=== PATIENT | female | born 1955 | race Caucasian/White ===

== ENCOUNTER 2019-04-02 07:30 | Inpatient (IN) | payer MEDICARE, MEDICAID ==
[~2019-04-02] VITALS: Ht 162.6 cm; Wt 84.8 kg
[2019-04-02] VITALS (10 sets, daily range): BP systolic 126–155; BP diastolic 64–73
[~2019-04-02 07:30] MED LIST: HYDR-3511 PO; MEMA10TA2 PO; MONT10TA24 PO; OMEP20TA2 PO; P20 PO; SIMV80TA70 PO; TOPI25TA48 PO; VALS80TA2 PO; [UNRECOGNIZED DRUG - OTHER] PO
[2019-04-02 08:40] LABS: BASOPHILS % 0.3 % (0.0-2.0); EOSINOPHILS % 0.9 % (0.0-5.0); HEMATOCRIT. 43.7 % (36.0-48.0); HEMOGLOBIN. 14.7 g/dL (12.0-16.0); LYMPHOCYTES % 38.8 % (20.0-50.0); MEAN CORPUSCULAR HEMOGLOBIN 30.6 pg (28.0-32.0); MEAN CORPUSCULAR VOLUME 90.9 fL (81.0-99.0); MEAN PLATELET VOLUME 10.3 fl (7.4-10.4); RED BLOOD CELL COUNT 4.81 mill/uL (4.2-5.4); RED CELL DISTRIBUTION WIDTH 13.6 % (11.6-14.6)
[2019-04-02 08:43] LABS: CHLORIDE 112 mEq/L (98-107)
[2019-04-02 08:44] LABS: INR 1.1; PROTHROMBIN TIME 11.4 sec (9.6-11.0)
[2019-04-02 09:11] LABS: PLATELET 4 x1000/uL (130-400); PLATELET ESTIMATE MARKEDLY DECREASED
[2019-04-02] MEDS ORDERED: ELTR25TA MT (11:48)
[2019-04-02] MEDS ORDERED: LOSA50TA20 MT (11:48)
[2019-04-02] MEDS ORDERED: UMEC62.5 INH (11:48)
[2019-04-02] MEDS ORDERED: BUDE6.9H INH (11:48)
[2019-04-02] MEDS ORDERED: LORA10TA7 MT (11:48)
[2019-04-02] MEDS ORDERED: ACETAMINOPHEN 650MG SUPP PR PRN (12:00)
[2019-04-02] MEDS ORDERED: DIPHENHYDRAMINE 50MG/ML VIAL IV PRN (12:00)
[2019-04-02] MEDS ORDERED: IPRATROPIUM/ALBUTEROL 0.5-3(2.5)MG/3ML NEB INH PRN (12:00)
[2019-04-02] MEDS ORDERED: DOCUSATE SODIUM 100MG CAPSULE PO PRN (12:00)
[2019-04-02] MEDS ORDERED: ONDANSETRON HCL 4MG/2ML INJ IV PRN (12:00)
[2019-04-02] MEDS ORDERED: LORAZEPAM 0.5MG TABLET PO PRN (12:00)
[2019-04-02] MEDS ORDERED: GUAIFENESIN 200MG/10ML SUGAR FREE UDC PO PRN (12:00)
[2019-04-02] MEDS ORDERED: NA PHOS,M-B/NA PHOS,DI-BA ENEMA 118ML PR PRN (12:00)
[2019-04-02] MEDS ORDERED: DEXAMETHASONE 4MG/ML 1ML VIAL IV SCH (12:00)
[2019-04-02] MEDS ORDERED: MAGNESIUM/ALUMINUM HYDROXIDE/SIMETHICONE 30ML UDC PO PRN (12:00)
[2019-04-02] MEDS ORDERED: HYDROCODONE/ACETAMINOPHEN 5/325MG TABLET PO PRN (12:00)
[2019-04-02] MEDS ORDERED: MEMANTINE HCL 10MG TABLET PO SCH (12:00)
[2019-04-02] MEDS ORDERED: CLONIDINE 0.1MG TABLET PO PRN (12:00)
[2019-04-02] MEDS ORDERED: ACETAMINOPHEN 325MG TABLET PO PRN (12:00)
[2019-04-02] MEDS ORDERED: LEVETIRACETAM 500 MG in SODIUM CHLORIDE 0.9% 100 ML IV SCH (13:00)
[2019-04-02] MEDS ORDERED: LEVOFLOXACIN 500MG PREMIX 100 ML IV SCH (13:30)
[2019-04-02] MEDS ORDERED: DEXTROSE 50% WATER 50ML SYRINGE IV PRN (13:45)
[2019-04-02] MEDS: IPRATROPIUM/ALBUTEROL 0.5-3(2.5)MG/3ML NEB HHN SCH ×2 (16:28→20:50)
[2019-04-02] MEDS: LOSARTAN POTASSIUM 50 MG TABLET PO SCH (16:42)
[2019-04-02] MEDS: INSULIN LISPRO 100 UNITS/ML SUBCUT SCH ×2 (17:15→21:00)
[2019-04-02] MEDS: BLOOD SUGAR DIAGNOSTIC STRIP TEST SCH ×2 (17:21→20:26)
[2019-04-02] MEDS: SODIUM CHLORIDE 0.45% 1,000 ML IV SCH (18:04)
[2019-04-02] MEDS: CEFTRIAXONE 1 G PREMIX 50 ML IV SCH (18:40)
[2019-04-02] MEDS: MONTELUKAST SODIUM 10MG TABLET PO SCH (18:47)
[2019-04-02 20:20] LABS: CLARITY URINE CLEAR (CLEAR); COLOR URINE YELLOW (YELLOW); KETONES URINE NEGATIVE (NEGATIVE); LEUKOCYTE ESTERASE URINE NEGATIVE (NEGATIVE); NITRITE URINE NEGATIVE (NEGATIVE); OCCULT BLOOD URINE 3+ (NEGATIVE); PH URINE 7.5 (4.5-8.0); PROTEIN URINE 1+ (NEGATIVE); SPECIFIC GRAVITY URINE 1.017 (1.005-1.030)
[2019-04-02] MEDS: DEXAMETHASONE 4MG/ML 1ML VIAL IV SCH (20:26)
[2019-04-02] MEDS: TOPIRAMATE 25MG TABLET PO SCH (20:26)
[2019-04-02] MEDS: MEMANTINE HCL 10MG TABLET PO SCH (20:26)
[2019-04-02 20:30] LABS: HEMATOCRIT 40.2 % (36.0-48.0); HEMOGLOBIN 13.8 g/dL (12.0-16.0)
[2019-04-02 20:31] LABS: PROTHROMBIN TIME 10.7 sec (9.6-11.0)
[2019-04-02 20:37] LABS: *AMPHETAMINES SCREEN URINE NEGATIVE (NEGATIVE); *BARBITURATES SCREEN URINE NEGATIVE (NEGATIVE); *BENZODIAZEPINES SCREEN URINE NEGATIVE (NEGATIVE); *COCAINE SCREEN URINE NEGATIVE (NEGATIVE)
[2019-04-02 20:38] LABS: CANNABINOID URINE SCREEN NEGATIVE (NEGATIVE); METHADONE URINE SCREEN NEGATIVE (NEGATIVE); OPIATES URINE SCREEN NEGATIVE (NEGATIVE); PHENCYCLIDINE URINE SCREEN NEGATIVE (NEGATIVE)
[2019-04-02 20:45] LABS: CREATINE KINASE MB FRACTION 1.7 ng/mL (0.5-3.6)
[2019-04-02] MEDS: BUDESONIDE 0.5MG/2ML NEB HHN SCH (20:51)
[2019-04-02] MEDS ORDERED: ATORVASTATIN CALCIUM 40MG TABLET PO SCH (21:00)
[2019-04-02] MEDS: LEVETIRACETAM 500MG TABLET PO SCH ×2 (21:00→21:37)
[2019-04-02 23:34] LABS: CREATINE KINASE MB FRACTION 1.7 ng/mL (0.5-3.6)
[2019-04-03] VITALS (7 sets, daily range): BP systolic 107–139; BP diastolic 56–85
[2019-04-03] MEDS: IPRATROPIUM/ALBUTEROL 0.5-3(2.5)MG/3ML NEB HHN SCH ×2 (01:07→11:57)
[2019-04-03] MEDS: DEXAMETHASONE 4MG/ML 1ML VIAL IV SCH ×2 (03:57→12:29)
[2019-04-03 06:43] LABS: BASOPHILS % 0.1 % (0.0-2.0); HEMOGLOBIN. 14.2 g/dL (12.0-16.0); LYMPHOCYTES % 27.6 % (20.0-50.0); MEAN CORPUSCULAR HEMOGLOBIN 30.7 pg (28.0-32.0); MEAN CORPUSCULAR VOLUME 90.9 fL (81.0-99.0); MEAN PLATELET VOLUME 10.6 fl (7.4-10.4); NEUTROPHILS % 68.3 % (40.0-76.0); RED BLOOD CELL COUNT 4.62 mill/uL (4.2-5.4); RED CELL DISTRIBUTION WIDTH 13.4 % (11.6-14.6)
[2019-04-03] MEDS ORDERED: OMEPRAZOLE 20MG CAPSULE EXTENDED RELEASE PO SCH (06:45)
[2019-04-03 06:51] LABS: PLATELET 28 x1000/uL (130-400)
[2019-04-03] MEDS: BLOOD SUGAR DIAGNOSTIC STRIP TEST SCH ×3 (07:13→17:05)
[2019-04-03] MEDS: INSULIN LISPRO 100 UNITS/ML SUBCUT SCH ×3 (07:13→17:45)
[2019-04-03 07:18] LABS: CHLORIDE 113 mEq/L (98-107)
[2019-04-03 07:27] LABS: HDL CHOLESTEROL 47 mg/dL (40-59)
[2019-04-03 07:30] LABS: LDL CHOLESTEROL 48 mg/dL (5-100); T4 FREE 0.93 ng/dL (0.76-1.46)
[2019-04-03] MEDS ORDERED: MEDICATION NOT ON FORMULARY EA (Valsartan (Diovan) 160 MG) PO SCH (09:00)
[2019-04-03] MEDS ORDERED: LORATADINE 10MG TABLET PO SCH (09:00)
[2019-04-03] MEDS ORDERED: SIMVASTATIN 80 MG PO SCH (09:00)
[2019-04-03] MEDS: LEVETIRACETAM 500MG TABLET PO SCH (09:09)
[2019-04-03] MEDS: MEMANTINE HCL 10MG TABLET PO SCH (09:09)
[2019-04-03] MEDS: LOSARTAN POTASSIUM 50 MG TABLET PO SCH (09:09)
[2019-04-03] MEDS: TOPIRAMATE 25MG TABLET PO SCH (09:09)
[2019-04-03] MEDS: SODIUM CHLORIDE 0.45% 1,000 ML IV SCH (09:10)
[2019-04-03] MEDS: BUDESONIDE 0.5MG/2ML NEB HHN SCH (11:58)
[2019-04-03] MEDS ORDERED: PROMACTA 25 MG PO SCH (12:45)
[2019-04-03] MEDS: CEFTRIAXONE 1 G PREMIX 50 ML IV SCH (15:54)
[2019-04-03] MEDS: MONTELUKAST SODIUM 10MG TABLET PO SCH (17:45)
== END 2019-04-03 20:09 | disposition home or self-care (01) | DRG 813 ==
LOC: ER 07:30 → EDBEDREQ 08:21 → 5WST 10:19 → EDBEDREQ 10:22 → ENRESERV 10:29
PROVIDERS: ADMIT Internal Medicine; ATTEND Internal Medicine
PROC: 30233R1 Transfusion of Nonautologous Platelets into Peripheral Vein, Percutaneous Approach (ICD-10-PCS; principal; 2019-04-02)
DX: D69.3 Immune thrombocytopenic purpura (principal); J45.901 Unspecified asthma with (acute) exacerbation; N39.0 Urinary tract infection, site not specified; D69.59 Other secondary thrombocytopenia; E78.5 Hyperlipidemia, unspecified; E86.0 Dehydration; F03.90 Unspecified dementia, unspecified severity, without behavioral disturbance, psychotic disturbance, mood disturbance, and anxiety; G40.909 Epilepsy, unspecified, not intractable, without status epilepticus; H54.7 Unspecified visual loss; H91.90 Unspecified hearing loss, unspecified ear; I10 Essential (primary) hypertension; Z90.710 Acquired absence of both cervix and uterus; Z90.81 Acquired absence of spleen; Z88.8 Allergy status to other drugs, medicaments and biological substances; Z79.899 Other long term (current) drug therapy; R73.9 Hyperglycemia, unspecified
CPT/HCPCS: 36415; 71045; 80061; 80305; 82550; 82553; 82962; 83036; 84439; 84443; 85014; 85018; 85049; 85384; 86850; 86900; 93306; 93970; 97162; 99291; J0696; J1100; J1815; J1953; J7040; J7050; J7620; J7626; P9034; A4315

== ENCOUNTER 2019-05-20 15:34 | Inpatient (IN) | payer MEDICARE, MEDICAID ==
[~2019-05-20] VITALS: Ht 152.4 cm; Wt 90.7 kg
[~2019-05-20 15:34] MED LIST changes: +BUDE6.9H INH; +ELTR25TA PO; -HYDR-3511 PO; +HYDR-3512 PO; +LORA10TA7 PO; +LOSA50TA41 PO; -P20 PO; -SIMV80TA70 PO; +SIMV80TA90 PO; +UMEC62.5 INH
[2019-05-20 18:18] LABS: BASOPHILS % 0.5 % (0.0-2.0); EOSINOPHILS % 1.3 % (0.0-5.0); HEMATOCRIT. 44.2 % (36.0-48.0); HEMOGLOBIN. 15.2 g/dL (12.0-16.0); MEAN CORPUSCULAR HEMOGLOBIN 31.4 pg (28.0-32.0); MEAN CORPUSCULAR VOLUME 91.5 fL (81.0-99.0); MEAN PLATELET VOLUME 10.7 fl (7.4-10.4); MONOCYTES % 10.6 % (2.0-8.0); NEUTROPHILS % 41.6 % (40.0-76.0); RED BLOOD CELL COUNT 4.82 mill/uL (4.2-5.4); RED CELL DISTRIBUTION WIDTH 13.2 % (11.6-14.6)
[2019-05-20 18:24] LABS: CHLORIDE 110 mEq/L (98-107); PROTHROMBIN TIME 9.9 sec (9.6-11.0)
[2019-05-20 18:25] LABS: PLATELET 10 x1000/uL (130-400)
[2019-05-20] MEDS ORDERED: CLONIDINE 0.1MG TABLET PO PRN (21:45)
[2019-05-20] MEDS ORDERED: IPRATROPIUM/ALBUTEROL 0.5-3(2.5)MG/3ML NEB HHN PRN (21:45)
[2019-05-20] MEDS: TOPIRAMATE 25MG TABLET PO SCH (22:00)
[2019-05-20] MEDS: ATORVASTATIN CALCIUM 40MG TABLET PO SCH (22:00)
[2019-05-20 22:01] VITALS: BP 139/64
[2019-05-20 22:30] VITALS: BP 139/64
[2019-05-20] MEDS: METHYLPREDNISOLONE SOD SUCC 40 MG/ML VIAL IV SCH (23:00)
[2019-05-20 23:43] VITALS: BP 121/64
[2019-05-20 23:58] VITALS: BP 132/56
[2019-05-21] VITALS (7 sets, daily range): BP systolic 121–146; BP diastolic 64–75
[2019-05-21] MEDS: METHYLPREDNISOLONE SOD SUCC 40 MG/ML VIAL IV SCH ×2 (05:50→17:56)
[2019-05-21] MEDS ORDERED: MEMANTINE HCL 10MG TABLET PO SCH (09:00)
[2019-05-21] MEDS: MEMANTINE HCL 10MG TABLET PO SCH ×2 (09:09→20:48)
[2019-05-21] MEDS: TOPIRAMATE 25MG TABLET PO SCH ×2 (09:10→18:20)
[2019-05-21] MEDS: LORATADINE 10MG TABLET PO SCH (09:10)
[2019-05-21] MEDS: LOSARTAN POTASSIUM 50 MG TABLET PO SCH (09:10)
[2019-05-21] MEDS: LEVETIRACETAM 500MG TABLET PO SCH ×2 (09:10→20:47)
[2019-05-21] MEDS: PANTOPRAZOLE 40MG DR TABLET PO SCH (09:11)
[2019-05-21] MEDS ORDERED: [UNRECOGNIZED DRUG - REMARK] PO SCH (11:00)
[2019-05-21 16:22] LABS: HEMATOCRIT 43.9 % (36.0-48.0); MEAN CORPUSCULAR HEMOGLOBIN 31.3 pg (28.0-32.0); MEAN CORPUSCULAR VOLUME 91.9 fL (81.0-99.0); RED BLOOD CELL COUNT 4.78 mill/uL (4.2-5.4); RED CELL DISTRIBUTION WIDTH 13.5 % (11.6-14.6)
[2019-05-21 16:29] LABS: CHLORIDE 110 mEq/L (98-107)
[2019-05-21 16:33] LABS: PLATELET 36 x1000/uL (130-400)
[2019-05-21] MEDS: MONTELUKAST SODIUM 10MG TABLET PO SCH (18:20)
[2019-05-21] MEDS ORDERED: PROMACTA 25 MG PO SCH (20:00)
[2019-05-21] MEDS: ATORVASTATIN CALCIUM 40MG TABLET PO SCH (20:47)
[2019-05-22] VITALS: BP 110/48
[2019-05-22 00:08] LABS: CLARITY URINE CLOUDY (CLEAR); COLOR URINE YELLOW (YELLOW); KETONES URINE NEGATIVE (NEGATIVE); LEUKOCYTE ESTERASE URINE NEGATIVE (NEGATIVE); NITRITE URINE NEGATIVE (NEGATIVE); OCCULT BLOOD URINE 3+ (NEGATIVE); PH URINE 6.5 (4.5-8.0); PROTEIN URINE NEGATIVE (NEGATIVE); UROBILINOGEN URINE 0.2 E.U./dL (0.2-1.0)
[2019-05-22 04:00] VITALS: BP 132/75
[2019-05-22] MEDS: METHYLPREDNISOLONE SOD SUCC 40 MG/ML VIAL IV SCH ×2 (05:21→17:01)
[2019-05-22 07:18] LABS: HEMATOCRIT 43.2 % (36.0-48.0); HEMOGLOBIN 14.5 g/dL (12.0-16.0); MEAN CORPUSCULAR HEMOGLOBIN 31.3 pg (28.0-32.0); MEAN CORPUSCULAR VOLUME 92.9 fL (81.0-99.0); RED BLOOD CELL COUNT 4.65 mill/uL (4.2-5.4); RED CELL DISTRIBUTION WIDTH 13.6 % (11.6-14.6)
[2019-05-22 07:35] LABS: PLATELET 40 x1000/uL (130-400)
[2019-05-22] MEDS: PANTOPRAZOLE 40MG DR TABLET PO SCH (07:40)
[2019-05-22 07:47] LABS: CHLORIDE 112 mEq/L (98-107)
[2019-05-22] MEDS: LEVETIRACETAM 500MG TABLET PO SCH ×2 (08:51→21:44)
[2019-05-22] MEDS: MEMANTINE HCL 10MG TABLET PO SCH ×2 (08:51→21:44)
[2019-05-22] MEDS: LORATADINE 10MG TABLET PO SCH (08:51)
[2019-05-22] MEDS: LOSARTAN POTASSIUM 50 MG TABLET PO SCH (08:51)
[2019-05-22] MEDS: TOPIRAMATE 25MG TABLET PO SCH ×2 (08:51→17:01)
[2019-05-22 08:53] VITALS: BP 139/67
[2019-05-22] MEDS ORDERED: SUCCINYLCHOLINE CHLORIDE 200MG/10ML IV ONE (09:24)
[2019-05-22] MEDS ORDERED: MIDAZOLAM HCL 5 MG/5 ML VIAL ONE (09:24)
[2019-05-22] MEDS ORDERED: PROPOFOL 200MG/20ML VIAL IV ONE (09:24)
[2019-05-22] MEDS ORDERED: LIDOCAINE HCL 1% 20ML VIAL (Pyxis) INJ ONE ×2 (09:24→09:31)
[2019-05-22] MEDS ORDERED: FLUMAZENIL 0.1 MG/ML 5ML VIAL IV ONE (09:40)
[2019-05-22] MEDS ORDERED: SODIUM CHLORIDE 0.9% 1,000 ML IV ONE (09:47)
[2019-05-22] MEDS ORDERED: HYDROMORPHONE HCL/PF 2MG/ML CPJ IV PRN (10:00)
[2019-05-22] MEDS ORDERED: ONDANSETRON HCL 4MG/2ML INJ IV PRN (10:00)
[2019-05-22 13:03] VITALS: BP 160/85
[2019-05-22 15:32] VITALS: BP 154/71
[2019-05-22] MEDS: LEVOFLOXACIN 500MG PREMIX 100 ML IV SCH (17:00)
[2019-05-22] MEDS: MONTELUKAST SODIUM 10MG TABLET PO SCH (17:01)
[2019-05-22 20:00] VITALS: BP 129/72
[2019-05-22] MEDS: ATORVASTATIN CALCIUM 40MG TABLET PO SCH (21:44)
[2019-05-22] MEDS ORDERED: PROMACTA 25 MG PO SCH (22:00)
[2019-05-23] VITALS: BP 134/72
[2019-05-23 04:00] VITALS: BP 122/73
[2019-05-23] MEDS: PANTOPRAZOLE 40MG DR TABLET PO SCH (05:36)
[2019-05-23] MEDS: METHYLPREDNISOLONE SOD SUCC 40 MG/ML VIAL IV SCH (05:36)
[2019-05-23 06:43] LABS: HEMATOCRIT 41.3 % (36.0-48.0); HEMOGLOBIN 14.1 g/dL (12.0-16.0); MEAN CORPUSCULAR HEMOGLOBIN 31.4 pg (28.0-32.0); MEAN CORPUSCULAR VOLUME 91.9 fL (81.0-99.0); PLATELET 64 x1000/uL (130-400); RED BLOOD CELL COUNT 4.49 mill/uL (4.2-5.4); RED CELL DISTRIBUTION WIDTH 13.6 % (11.6-14.6)
[2019-05-23 06:50] LABS: CHLORIDE 111 mEq/L (98-107)
[2019-05-23 08:00] VITALS: BP 124/75
[2019-05-23] MEDS: LORATADINE 10MG TABLET PO SCH (09:14)
[2019-05-23] MEDS: MEMANTINE HCL 10MG TABLET PO SCH (09:14)
[2019-05-23] MEDS: LEVETIRACETAM 500MG TABLET PO SCH (09:14)
[2019-05-23] MEDS: LOSARTAN POTASSIUM 50 MG TABLET PO SCH (09:15)
[2019-05-23] MEDS: TOPIRAMATE 25MG TABLET PO SCH (09:15)
[2019-05-23] MEDS: LEVOFLOXACIN 500MG PREMIX 100 ML IV SCH (10:30)
[2019-05-23 12:00] VITALS: BP 125/68
[2019-05-23 12:46] VITALS: BP 125/68
== END 2019-05-23 14:15 | disposition home or self-care (01) | DRG 813 ==
LOC: ER 15:34 → 7WST 18:06 → ENRESERV 20:04
PROVIDERS: ADMIT Internal Medicine; ATTEND Internal Medicine
PROC: 30233R1 Transfusion of Nonautologous Platelets into Peripheral Vein, Percutaneous Approach (ICD-10-PCS; principal; 2019-05-20)
PROC: 5A09457 Assistance with Respiratory Ventilation, 24-96 Consecutive Hours, Continuous Positive Airway Pressure (ICD-10-PCS; 2019-05-20)
PROC: 07DQ3ZZ Extraction of Sternum Bone Marrow, Percutaneous Approach (ICD-10-PCS; 2019-05-22)
DX: D69.3 Immune thrombocytopenic purpura (principal); I50.33 Acute on chronic diastolic (congestive) heart failure; J45.901 Unspecified asthma with (acute) exacerbation; N39.0 Urinary tract infection, site not specified; D68.62 Lupus anticoagulant syndrome; I11.0 Hypertensive heart disease with heart failure; E11.65 Type 2 diabetes mellitus with hyperglycemia; E86.0 Dehydration; F03.90 Unspecified dementia, unspecified severity, without behavioral disturbance, psychotic disturbance, mood disturbance, and anxiety; G40.909 Epilepsy, unspecified, not intractable, without status epilepticus; E78.5 Hyperlipidemia, unspecified; Z90.710 Acquired absence of both cervix and uterus; Z79.899 Other long term (current) drug therapy; Z88.8 Allergy status to other drugs, medicaments and biological substances; Z90.81 Acquired absence of spleen; Z86.2 Personal history of diseases of the blood and blood-forming organs and certain disorders involving the immune mechanism
CPT/HCPCS: 36415; 38220; 71045; 80048; 82542; 84484; 85027; 85060; 85097; 86850; 86900; 88313; 92950; 93005; 93970; 94660; 96374; 96375; 99285; J0330; J1956; J2250; J2704; J2920; J3490; J7050; P9034

== ENCOUNTER 2019-06-13 17:21 | Inpatient (IN) | payer MEDICARE, MEDICAID ==
[~2019-06-13] VITALS: Ht 152.4 cm; Wt 86.2 kg
[2019-06-13 18:53] LABS: BASOPHILS % 0.5 % (0.0-2.0); EOSINOPHILS % 3.1 % (0.0-5.0); HEMATOCRIT. 40.9 % (36.0-48.0); HEMOGLOBIN. 14.1 g/dL (12.0-16.0); LYMPHOCYTES % 46.7 % (20.0-50.0); MEAN CORPUSCULAR HEMOGLOBIN 31.6 pg (28.0-32.0); MEAN CORPUSCULAR VOLUME 91.9 fL (81.0-99.0); MEAN PLATELET VOLUME 10.2 fl (7.4-10.4); MONOCYTES % 9.8 % (2.0-8.0); NEUTROPHILS % 39.9 % (40.0-76.0); RED BLOOD CELL COUNT 4.46 mill/uL (4.2-5.4); RED CELL DISTRIBUTION WIDTH 13.6 % (11.6-14.6)
[2019-06-13 19:02] LABS: CHLORIDE 110 mEq/L (98-107)
[2019-06-13] MEDS ORDERED: METHYLPREDNISOLONE SOD SUCC 125 MG/2 ML VIAL IV ONE (20:15)
[2019-06-14] VITALS (9 sets, daily range): BP systolic 115–148; BP diastolic 57–78
[2019-06-14] MEDS ORDERED: HYDROCODONE/ACETAMINOPHEN 5/325MG TABLET PO PRN (05:30)
[2019-06-14] MEDS ORDERED: BUDESONIDE 0.5MG/2ML NEB HHN SCH (06:00)
[2019-06-14] MEDS ORDERED: VALSARTAN 160 MG PO SCH (09:00)
[2019-06-14] MEDS ORDERED: TOPIRAMATE 25MG TABLET PO SCH (09:00)
[2019-06-14] MEDS ORDERED: LEVETIRACETAM 500MG/5ML CUP PO SCH (09:00)
[2019-06-14] MEDS ORDERED: LORATADINE 10MG TABLET PO SCH (09:00)
[2019-06-14] MEDS ORDERED: MEMANTINE HCL 10MG TABLET PO SCH (09:00)
[2019-06-14] MEDS ORDERED: LOSARTAN POTASSIUM 50 MG TABLET PO SCH (09:00)
[2019-06-14] MEDS ORDERED: ELTR25TA MT (13:29)
[2019-06-14] MEDS ORDERED: PROMACTA 25 MG XX SCH (13:30)
[2019-06-14] MEDS ORDERED: METHYLPREDNISOLONE SOD SUCC 40 MG/ML VIAL IV SCH (15:00)
[2019-06-14 15:31] LABS: BASOPHILS % 0.1 % (0.0-2.0); HEMATOCRIT. 39.9 % (36.0-48.0); HEMOGLOBIN. 13.5 g/dL (12.0-16.0); LYMPHOCYTES % 24.9 % (20.0-50.0); MEAN CORPUSCULAR HEMOGLOBIN 31.1 pg (28.0-32.0); MEAN PLATELET VOLUME 7.5 fl (7.4-10.4); MONOCYTES % 7.6 % (2.0-8.0); NEUTROPHILS % 67.4 % (40.0-76.0); PLATELET 63 x1000/uL (130-400); RED BLOOD CELL COUNT 4.33 mill/uL (4.2-5.4); RED CELL DISTRIBUTION WIDTH 13.4 % (11.6-14.6)
[2019-06-14 15:39] LABS: CHLORIDE 111 mEq/L (98-107)
[2019-06-14] MEDS ORDERED: MONTELUKAST SODIUM 10MG TABLET PO SCH (17:00)
[2019-06-14] MEDS ORDERED: ATORVASTATIN CALCIUM 40MG TABLET PO SCH (21:00)
[2019-06-17 09:19] LABS: PLATELET 7 x1000/uL (130-400)
== END 2019-06-14 19:06 | disposition home or self-care (01) | DRG 813 ==
LOC: ER 17:21 → 8WST 20:10 → ENRESERV 21:54
PROVIDERS: ADMIT Internal Medicine; ATTEND Internal Medicine
PROC: 30233R1 Transfusion of Nonautologous Platelets into Peripheral Vein, Percutaneous Approach (ICD-10-PCS; principal; 2019-06-14)
DX: D69.3 Immune thrombocytopenic purpura (principal); E44.1 Mild protein-calorie malnutrition; I50.32 Chronic diastolic (congestive) heart failure; E66.9 Obesity, unspecified; E78.5 Hyperlipidemia, unspecified; E87.8 Other disorders of electrolyte and fluid balance, not elsewhere classified; F03.90 Unspecified dementia, unspecified severity, without behavioral disturbance, psychotic disturbance, mood disturbance, and anxiety; G40.909 Epilepsy, unspecified, not intractable, without status epilepticus; H54.7 Unspecified visual loss; I11.0 Hypertensive heart disease with heart failure; Z90.710 Acquired absence of both cervix and uterus; Z90.81 Acquired absence of spleen; Z88.8 Allergy status to other drugs, medicaments and biological substances; Z79.899 Other long term (current) drug therapy; Z68.37 Body mass index [BMI] 37.0-37.9, adult
CPT/HCPCS: 36415; 71045; 80048; 83880; 84484; 85384; 86850; 86900; 93005; 96374; 99285; J2920; J2930; J7040; P9034

== ENCOUNTER 2019-08-19 12:25 | Emergency (ER) | payer MEDICARE, MEDICAID ==
[~2019-08-19] VITALS: Ht 167.6 cm; Wt 102.0 kg
[~2019-08-19 12:25] MED LIST changes: +ELTR25TA MT; +FOST100T PO
[2019-08-19 13:25] LABS: BASOPHILS % 0.5 % (0.0-2.0); EOSINOPHILS % 0.9 % (0.0-5.0); HEMATOCRIT. 43.9 % (36.0-48.0); HEMOGLOBIN. 14.8 g/dL (12.0-16.0); LYMPHOCYTES % 45.9 % (20.0-50.0); MEAN CORPUSCULAR HEMOGLOBIN 30.9 pg (28.0-32.0); MEAN CORPUSCULAR VOLUME 91.5 fL (81.0-99.0); MEAN PLATELET VOLUME 9.5 fl (7.4-10.4); MONOCYTES % 8.3 % (2.0-8.0); NEUTROPHILS % 44.4 % (40.0-76.0); RED CELL DISTRIBUTION WIDTH 14.5 % (11.6-14.6)
[2019-08-19 13:32] LABS: CHLORIDE 112 mEq/L (98-107); INR 0.9; PROTHROMBIN TIME 9.6 sec (9.6-11.0)
[2019-08-19 17:10] VITALS: BP 138/78
[2019-08-20 09:47] LABS: PLATELET 10 x1000/uL (130-400)
== END 2019-08-19 17:40 | disposition home or self-care (01) ==
LOC: SUPCPDRO 14:11 → ER 14:19
DX: D69.3 Immune thrombocytopenic purpura (principal); T14.8XXA Other injury of unspecified body region, initial encounter; D69.6 Thrombocytopenia, unspecified; G40.909 Epilepsy, unspecified, not intractable, without status epilepticus; I11.0 Hypertensive heart disease with heart failure; I50.33 Acute on chronic diastolic (congestive) heart failure; F03.90 Unspecified dementia, unspecified severity, without behavioral disturbance, psychotic disturbance, mood disturbance, and anxiety; J45.909 Unspecified asthma, uncomplicated; E78.5 Hyperlipidemia, unspecified; D64.9 Anemia, unspecified; K57.92 Diverticulitis of intestine, part unspecified, without perforation or abscess without bleeding; Z90.81 Acquired absence of spleen; Z90.710 Acquired absence of both cervix and uterus; Z79.899 Other long term (current) drug therapy; Z88.8 Allergy status to other drugs, medicaments and biological substances
CPT/HCPCS: 36415; 86850; 86900; 93005; 99284; P9034

== ENCOUNTER 2019-08-27 11:58 | Emergency (ER) | payer MEDICARE, MEDICAID ==
[~2019-08-27] VITALS: Ht 152.4 cm; Wt 95.0 kg
[2019-08-27] MEDS ORDERED: SODIUM CHLORIDE 0.9% 1,000 ML IV ONE (12:59)
[2019-08-27 14:16] LABS: BG BASE EXCESS -3.3 mmol/L (-2.0-2.0); BG CARBOXYHEMOGLOBIN 0.7 % (0.5-1.5); BG DEOXYHEMOGLOBIN 4.4 % (0.0-5.0); BG FRACTION INSPIRED OXYGEN 28; BG HCO3 ACT 22.3 mmol/L (22.0-26.0); BG METHEMOGLOBIN 0.3 % (0.0-1.5); BG OXYGEN SATURATION 95.6 % (92.0-98.5); BG OXYHEMOGLOBIN 94.6 % (94.0-97.0); BG PCO2 41.9 mmHg (35.0-45.0); BG PH 7.343 (7.350-7.450); BG PO2 83.6 mmHg (75.0-100.0); BG SAMPLE SITE LEFT BRACHIAL; BG TOTAL HEMOGLOBIN 14.2 g/dL (12.0-18.0); BG VENT MODE NASAL CANNULA
[2019-08-27 14:20] LABS: BASOPHILS % 0.2 % (0.0-2.0); CHLORIDE 113 mEq/L (98-107); EOSINOPHILS % 0.4 % (0.0-5.0); HEMATOCRIT. 42.6 % (36.0-48.0); HEMOGLOBIN. 14.5 g/dL (12.0-16.0); LYMPHOCYTES % 48.1 % (20.0-50.0); MEAN CORPUSCULAR HEMOGLOBIN 31.1 pg (28.0-32.0); MEAN CORPUSCULAR VOLUME 91.6 fL (81.0-99.0); MEAN PLATELET VOLUME 10.9 fl (7.4-10.4); MONOCYTES % 7.6 % (2.0-8.0); NEUTROPHILS % 43.7 % (40.0-76.0); RED BLOOD CELL COUNT 4.64 mill/uL (4.2-5.4); RED CELL DISTRIBUTION WIDTH 14.9 % (11.6-14.6)
[2019-08-27 14:25] LABS: ETHANOL BLOOD < 10 mg/dL
[2019-08-27 15:23] LABS: INR 0.9; PROTHROMBIN TIME 9.8 sec (9.6-11.0)
[2019-08-27] MEDS ORDERED: PREDNISONE 20MG TABLET PO ONE (16:00)
[2019-08-27 16:26] VITALS: BP 125/70
[2019-08-28 08:55] LABS: PLATELET 32 x1000/uL (130-400)
== END 2019-08-27 16:28 | disposition home or self-care (01) ==
LOC: ER 11:58 → CANBEDREQ 15:55 → ER 16:28
DX: D69.6 Thrombocytopenia, unspecified (principal); E88.09 Other disorders of plasma-protein metabolism, not elsewhere classified; G40.909 Epilepsy, unspecified, not intractable, without status epilepticus; F03.90 Unspecified dementia, unspecified severity, without behavioral disturbance, psychotic disturbance, mood disturbance, and anxiety; H91.90 Unspecified hearing loss, unspecified ear; Z90.710 Acquired absence of both cervix and uterus; Z90.81 Acquired absence of spleen; Z88.6 Allergy status to analgesic agent
CPT/HCPCS: 36415; 36600; 70450; 71045; 80053; 80320; 82140; 82375; 82805; 83605; 83880; 84443; 84484; 85025; 85610; 96360; 96361; 99284; J7030; J7512; G0480

== ENCOUNTER 2019-09-09 10:31 | Inpatient (IN) | payer MEDICARE, MEDICAID ==
[~2019-09-09] VITALS: Ht 152.4 cm; Wt 96.6 kg
[2019-09-09 12:12] LABS: BASOPHILS % 0.3 % (0.0-2.0); EOSINOPHILS % 0.5 % (0.0-5.0); HEMATOCRIT. 44.2 % (36.0-48.0); LYMPHOCYTES % 47.7 % (20.0-50.0); MEAN CORPUSCULAR HEMOGLOBIN 31.2 pg (28.0-32.0); MEAN CORPUSCULAR VOLUME 92.1 fL (81.0-99.0); MEAN PLATELET VOLUME 11.2 fl (7.4-10.4); MONOCYTES % 8.6 % (2.0-8.0); NEUTROPHILS % 42.9 % (40.0-76.0); RED CELL DISTRIBUTION WIDTH 15.7 % (11.6-14.6)
[2019-09-09 12:16] LABS: PLATELET 5 x1000/uL (130-400)
[2019-09-09 12:19] LABS: CHLORIDE 110 mEq/L (98-107)
[2019-09-09 12:21] LABS: INR 0.9; PROTHROMBIN TIME 9.8 sec (9.6-11.0)
[2019-09-09 12:33] LABS: PLATELET ESTIMATE MARKEDLY DECREASED
[2019-09-09 22:42] VITALS: BP 146/81
[2019-09-09] MEDS ORDERED: IPRATROPIUM/ALBUTEROL 0.5-3(2.5)MG/3ML NEB HHN PRN (23:15)
[2019-09-09] MEDS ORDERED: NON FORMULARY PATIENT HOME MED XX SCH ×2 (23:30)
[2019-09-10] VITALS: BP 148/80
[2019-09-10] MEDS: PREDNISONE 20MG TABLET PO SCH ×2 (00:08→08:30)
[2019-09-10] MEDS: IPRATROPIUM/ALBUTEROL 0.5-3(2.5)MG/3ML NEB HHN SCH ×3 (00:47→14:44)
[2019-09-10 04:00] VITALS: BP 143/78
[2019-09-10] MEDS ORDERED: OMEPRAZOLE 20MG CAPSULE EXTENDED RELEASE PO SCH (07:20)
[2019-09-10 08:00] VITALS: BP 173/92
[2019-09-10] MEDS ORDERED: LEVETIRACETAM 500MG TABLET PO SCH (09:00)
[2019-09-10] MEDS ORDERED: LORATADINE 10MG TABLET PO SCH (09:00)
[2019-09-10] MEDS ORDERED: MEMANTINE HCL 10MG TABLET PO SCH (09:00)
[2019-09-10] MEDS ORDERED: LOSARTAN POTASSIUM 50 MG TABLET PO SCH ×2 (09:00)
[2019-09-10 10:34] LABS: CHLORIDE 109 mEq/L (98-107)
[2019-09-10 10:38] LABS: BASOPHILS % 0.1 % (0.0-2.0); HEMATOCRIT. 44.5 % (36.0-48.0); HEMOGLOBIN. 14.9 g/dL (12.0-16.0); LYMPHOCYTES % 23.9 % (20.0-50.0); MEAN CORPUSCULAR HEMOGLOBIN 30.9 pg (28.0-32.0); MEAN CORPUSCULAR VOLUME 92.4 fL (81.0-99.0); MEAN PLATELET VOLUME 8.9 fl (7.4-10.4); MONOCYTES % 1.1 % (2.0-8.0); NEUTROPHILS % 74.9 % (40.0-76.0); RED BLOOD CELL COUNT 4.81 mill/uL (4.2-5.4); RED CELL DISTRIBUTION WIDTH 15.6 % (11.6-14.6)
[2019-09-10 10:44] LABS: PLATELET 36 x1000/uL (130-400)
[2019-09-10 12:00] VITALS: BP 145/78
[2019-09-10] MEDS ORDERED: MEMANTINE 28 MG PO SCH (12:00)
[2019-09-10 12:44] LABS: BASOPHILS % 0.1 % (0.0-2.0); HEMATOCRIT. 43.4 % (36.0-48.0); HEMOGLOBIN. 14.5 g/dL (12.0-16.0); LYMPHOCYTES % 21.7 % (20.0-50.0); MEAN CORPUSCULAR VOLUME 92.7 fL (81.0-99.0); MEAN PLATELET VOLUME 9.1 fl (7.4-10.4); MONOCYTES % 7.2 % (2.0-8.0); RED BLOOD CELL COUNT 4.68 mill/uL (4.2-5.4); RED CELL DISTRIBUTION WIDTH 15.9 % (11.6-14.6)
[2019-09-10 12:46] LABS: PLATELET 33 x1000/uL (130-400)
[2019-09-10] MEDS: TAVALISSE PO SCH ×2 (14:07→17:00)
[2019-09-10 16:00] VITALS: BP 158/81
[2019-09-10 16:41] VITALS: BP 158/81
[2019-09-10] MEDS ORDERED: MONTELUKAST SODIUM 10MG TABLET PO SCH (17:00)
[2019-09-10] MEDS ORDERED: ATORVASTATIN CALCIUM 40MG TABLET PO SCH (21:00)
== END 2019-09-10 17:05 | disposition home or self-care (01) | DRG 813 ==
LOC: ER 10:31 → 6EST 12:49 → ENRESERV 20:02
PROVIDERS: ADMIT Internal Medicine; ATTEND Internal Medicine
PROC: 30233R1 Transfusion of Nonautologous Platelets into Peripheral Vein, Percutaneous Approach (ICD-10-PCS; principal; 2019-09-09)
DX: D69.3 Immune thrombocytopenic purpura (principal); I50.33 Acute on chronic diastolic (congestive) heart failure; I11.0 Hypertensive heart disease with heart failure; E78.5 Hyperlipidemia, unspecified; F03.90 Unspecified dementia, unspecified severity, without behavioral disturbance, psychotic disturbance, mood disturbance, and anxiety; G40.909 Epilepsy, unspecified, not intractable, without status epilepticus; H54.7 Unspecified visual loss; J44.9 Chronic obstructive pulmonary disease, unspecified; Z79.51 Long term (current) use of inhaled steroids; Z79.899 Other long term (current) drug therapy; Z86.2 Personal history of diseases of the blood and blood-forming organs and certain disorders involving the immune mechanism; Z90.710 Acquired absence of both cervix and uterus; Z90.81 Acquired absence of spleen; Z88.8 Allergy status to other drugs, medicaments and biological substances
CPT/HCPCS: 36415; 80048; 86850; 86900; 94640; 99285; J7040; J7512; J7620; P9034

== ENCOUNTER 2019-10-03 13:40 | Inpatient (IN) | payer MEDICARE, MEDICAID ==
[~2019-10-03] VITALS: Ht 153.4 cm; Wt 99.4 kg
[2019-10-03 17:12] LABS: CHLORIDE 105 mEq/L (98-107)
[2019-10-03 17:25] LABS: HEMATOCRIT. 45.6 % (36.0-48.0); HEMOGLOBIN. 15.5 g/dL (12.0-16.0); LYMPHOCYTES % 18.2 % (20.0-50.0); MEAN CORPUSCULAR HEMOGLOBIN 31.9 pg (28.0-32.0); MEAN CORPUSCULAR VOLUME 94.2 fL (81.0-99.0); MONOCYTES % 4.6 % (2.0-8.0); NEUTROPHILS % 77.2 % (40.0-76.0); RED BLOOD CELL COUNT 4.84 mill/uL (4.2-5.4); RED CELL DISTRIBUTION WIDTH 16.9 % (11.6-14.6)
[2019-10-03 17:29] LABS: PLATELET 12 x1000/uL (130-400)
[2019-10-03 21:30] VITALS: BP 120/58
[2019-10-03] MEDS ORDERED: LOSARTAN POTASSIUM 100 MG TABLET PO NR (23:00)
[2019-10-04] VITALS: BP 143/79
[2019-10-04 04:00] VITALS: BP 127/73
[2019-10-04 07:18] LABS: EOSINOPHILS % 0.2 % (0.0-5.0); HEMATOCRIT. 45.3 % (36.0-48.0); HEMOGLOBIN. 15.4 g/dL (12.0-16.0); MEAN CORPUSCULAR HEMOGLOBIN 32.4 pg (28.0-32.0); MEAN CORPUSCULAR VOLUME 95.2 fL (81.0-99.0); MEAN PLATELET VOLUME 8.5 fl (7.4-10.4); MONOCYTES % 5.6 % (2.0-8.0); NEUTROPHILS % 54.2 % (40.0-76.0); RED BLOOD CELL COUNT 4.76 mill/uL (4.2-5.4); RED CELL DISTRIBUTION WIDTH 16.8 % (11.6-14.6)
[2019-10-04 08:00] VITALS: BP 139/73
[2019-10-04 08:04] LABS: PLATELET 31 x1000/uL (130-400)
[2019-10-04] MEDS ORDERED: LEVETIRACETAM 500MG/5ML CUP PO SCH (09:00)
[2019-10-04] MEDS ORDERED: LOSARTAN POTASSIUM 50 MG TABLET PO SCH (09:00)
[2019-10-04] MEDS ORDERED: LORATADINE 10MG TABLET PO SCH (09:00)
[2019-10-04] MEDS ORDERED: UMECLIDINIUM BROMIDE 1 INH BLST.W.DEV IH SCH (09:00)
[2019-10-04] MEDS ORDERED: MEMANTINE HCL 10MG TABLET PO SCH (09:00)
[2019-10-04] MEDS ORDERED: TOPIRAMATE 25MG TABLET PO SCH (09:00)
[2019-10-04 12:00] VITALS: BP 126/75
[2019-10-04] MEDS ORDERED: PREDNISONE 20MG TABLET PO NR (14:45)
[2019-10-04 16:00] VITALS: BP 99/59
[2019-10-04 17:01] VITALS: BP 99/59
[2019-10-04] MEDS ORDERED: MONTELUKAST SODIUM 10MG TABLET PO SCH (18:00)
== END 2019-10-04 17:38 | disposition home or self-care (01) | DRG 813 ==
LOC: ER 13:40 → 6EST 17:38 → ENRESERV 20:42
PROVIDERS: ADMIT Internal Medicine; ATTEND Internal Medicine
PROC: 30233R1 Transfusion of Nonautologous Platelets into Peripheral Vein, Percutaneous Approach (ICD-10-PCS; principal; 2019-10-03)
DX: D69.3 Immune thrombocytopenic purpura (principal); Z88.8 Allergy status to other drugs, medicaments and biological substances; F03.90 Unspecified dementia, unspecified severity, without behavioral disturbance, psychotic disturbance, mood disturbance, and anxiety; G40.909 Epilepsy, unspecified, not intractable, without status epilepticus; I10 Essential (primary) hypertension; J44.9 Chronic obstructive pulmonary disease, unspecified; Z90.710 Acquired absence of both cervix and uterus; Z90.81 Acquired absence of spleen
CPT/HCPCS: 36415; 86850; 86900; 99285; J7512; P9034

== ENCOUNTER 2019-11-30 08:32 | Inpatient (IN) | payer MEDICARE, MEDICAID ==
[~2019-11-30] VITALS: Ht 152.4 cm; Wt 94.8 kg
[~2019-11-30 08:32] MED LIST changes: +ATOR10TA MT; -ELTR25TA MT; -FOST100T PO; -LOSA50TA41 PO; +METO25TA6 MT; -MONT10TA24 PO; +MONT10TA26 PO; -SIMV80TA90 PO
[2019-11-30 12:32] LABS: BASOPHILS % 0.9 % (0.0-2.0); EOSINOPHILS % 2.6 % (0.0-5.0); HEMATOCRIT. 38.8 % (36.0-48.0); HEMOGLOBIN. 13.4 g/dL (12.0-16.0); LYMPHOCYTES % 37.5 % (20.0-50.0); MEAN CORPUSCULAR HEMOGLOBIN 33.3 pg (28.0-32.0); MEAN CORPUSCULAR VOLUME 96.6 fL (81.0-99.0); MONOCYTES % 8.5 % (2.0-8.0); NEUTROPHILS % 50.5 % (40.0-76.0); PLATELET 426 x1000/uL (130-400); RED BLOOD CELL COUNT 4.02 mill/uL (4.2-5.4); RED CELL DISTRIBUTION WIDTH 15.9 % (11.6-14.6)
[2019-11-30 12:40] LABS: INR 1.1; PROTHROMBIN TIME 10.8 sec (9.6-11.0)
[2019-11-30 12:42] LABS: CHLORIDE 103 mEq/L (98-107)
[2019-11-30 12:58] LABS: CLARITY URINE CLEAR (CLEAR); COLOR URINE YELLOW (YELLOW); KETONES URINE NEGATIVE (NEGATIVE); LEUKOCYTE ESTERASE URINE NEGATIVE (NEGATIVE); NITRITE URINE NEGATIVE (NEGATIVE); OCCULT BLOOD URINE NEGATIVE (NEGATIVE); PH URINE 5.5 (4.5-8.0); PROTEIN URINE TRACE (NEGATIVE)
[2019-11-30] MEDS ORDERED: ASPIRIN 81MG TABLET PO ONE (14:30)
[2019-11-30] MEDS ORDERED: FUROSEMIDE 40MG/4ML VIAL IV ONE (14:30)
[2019-11-30] MEDS ORDERED: DOCUSATE SODIUM 100MG CAPSULE PO PRN (14:45)
[2019-11-30] MEDS ORDERED: CLONIDINE 0.1MG TABLET PO PRN (14:45)
[2019-11-30] MEDS ORDERED: NA PHOS,M-B/NA PHOS,DI-BA ENEMA 118ML PR PRN (14:45)
[2019-11-30] MEDS ORDERED: GUAIFENESIN 200MG/10ML SUGAR FREE UDC PO PRN (14:45)
[2019-11-30] MEDS ORDERED: DIPHENHYDRAMINE 50MG/ML VIAL IV PRN (14:45)
[2019-11-30] MEDS ORDERED: LORAZEPAM 0.5MG TABLET PO PRN (14:45)
[2019-11-30] MEDS ORDERED: IPRATROPIUM/ALBUTEROL 0.5-3(2.5)MG/3ML NEB NEB PRN (14:45)
[2019-11-30] MEDS ORDERED: HYDROCODONE/ACETAMINOPHEN 5/325MG TABLET PO PRN (14:45)
[2019-11-30] MEDS ORDERED: ACETAMINOPHEN 650MG SUPP PR PRN (14:45)
[2019-11-30] MEDS ORDERED: ONDANSETRON HCL 4MG/2ML INJ IV PRN (14:45)
[2019-11-30] MEDS ORDERED: ACETAMINOPHEN 325MG TABLET PO PRN (14:45)
[2019-11-30] MEDS ORDERED: MAGNESIUM/ALUMINUM HYDROXIDE/SIMETHICONE 30ML UDC PO PRN (14:45)
[2019-11-30] MEDS ORDERED: ENOXAPARIN 100MG/ML SYR SUBCUT ONE (15:00)
[2019-11-30 15:43] LABS: BG BASE EXCESS 3.1 mmol/L (-2.0-2.0); BG CARBOXYHEMOGLOBIN 0.6 % (0.5-1.5); BG DEOXYHEMOGLOBIN 9.9 % (0.0-5.0); BG FRACTION INSPIRED OXYGEN 21; BG HCO3 ACT 27.8 mmol/L (22.0-26.0); BG METHEMOGLOBIN 0.3 % (0.0-1.5); BG OXYHEMOGLOBIN 89.2 % (94.0-97.0); BG PCO2 42.8 mmHg (35.0-45.0); BG PH 7.431 (7.350-7.450); BG PO2 56.1 mmHg (75.0-100.0); BG SAMPLE SITE RIGHT BRACHIAL; BG TOTAL HEMOGLOBIN 14.3 g/dL (12.0-18.0); BG VENT MODE ROOM AIR
[2019-11-30] MEDS ORDERED: IOHEXOL-350 100 ML BOTTLE ONE (17:51)
[2019-11-30] MEDS ORDERED: LEVETIRACETAM 500MG PREMIX 100 ML IV NR (19:26)
[2019-11-30] MEDS ORDERED: FAMOTIDINE 20MG/2ML VIAL IV NR (19:27)
[2019-11-30] MEDS ORDERED: CEFTRIAXONE 1 G PREMIX 50 ML IV NR (19:28)
[2019-11-30] MEDS ORDERED: APIXABAN 5 MG TABLET PO NR (19:29)
[2019-11-30] MEDS: IPRATROPIUM/ALBUTEROL 0.5-3(2.5)MG/3ML NEB NEB SCH ×2 (20:44→20:45)
[2019-11-30 23:49] LABS: CREATINE KINASE 31 IU/L (26-192)
[2019-11-30 23:50] LABS: CREATINE KINASE MB FRACTION < 1.0 ng/mL (0.5-3.6)
[2019-12-01 04:30] LABS: CHLORIDE 105 mEq/L (98-107)
[2019-12-01 04:42] LABS: LDL CHOLESTEROL 60 mg/dL (5-100)
[2019-12-01 04:43] LABS: CREATINE KINASE 27 IU/L (26-192); CREATINE KINASE MB FRACTION < 1.0 ng/mL (0.5-3.6); HDL CHOLESTEROL 32 mg/dL (40-59); T4 FREE 1.14 ng/dL (0.76-1.46)
[2019-12-01 04:47] LABS: BASOPHILS % 0.8 % (0.0-2.0); EOSINOPHILS % 5.3 % (0.0-5.0); HEMATOCRIT. 33.8 % (36.0-48.0); HEMOGLOBIN. 11.7 g/dL (12.0-16.0); LYMPHOCYTES % 37.6 % (20.0-50.0); MEAN CORPUSCULAR HEMOGLOBIN 33.1 pg (28.0-32.0); MEAN CORPUSCULAR VOLUME 95.9 fL (81.0-99.0); MEAN PLATELET VOLUME 8.1 fl (7.4-10.4); MONOCYTES % 10.8 % (2.0-8.0); NEUTROPHILS % 45.5 % (40.0-76.0); PLATELET 486 x1000/uL (130-400); RED BLOOD CELL COUNT 3.53 mill/uL (4.2-5.4); RED CELL DISTRIBUTION WIDTH 15.8 % (11.6-14.6)
[2019-12-01] MEDS ORDERED: LEVETIRACETAM 500 MG in SODIUM CHLORIDE 0.9% 100 ML IV SCH (09:00)
[2019-12-01] MEDS ORDERED: BUDESONIDE 0.5MG/2ML NEB HHN SCH (09:00)
[2019-12-01] MEDS ORDERED: LEVETIRACETAM 500MG PREMIX 100 ML IV SCH (09:00)
[2019-12-01] MEDS ORDERED: APIXABAN 5 MG TABLET PO SCH (09:00)
[2019-12-01] MEDS: DEXT 5%/0.45% NACL 1000ML 1,000 ML IV SCH (09:00)
[2019-12-01] MEDS: FAMOTIDINE 20MG/2ML VIAL IV SCH (09:02)
[2019-12-01] MEDS: APIXABAN 5 MG TABLET PO SCH ×2 (09:23→17:42)
[2019-12-01] MEDS ORDERED: IPRATROPIUM/ALBUTEROL 0.5-3(2.5)MG/3ML NEB NEB SCH (12:00)
[2019-12-01 16:10] VITALS: BP 142/76
[2019-12-01] MEDS: CEFTRIAXONE 1 G PREMIX 50 ML IV SCH (19:08)
[2019-12-01] MEDS ORDERED: LEVE500T98 PO (19:11)
[2019-12-01 20:00] VITALS: BP 115/53
[2019-12-01] MEDS ORDERED: INFLUENZA VIRUS VACCINE(AFLURIA) 0.5ML SYR IM ONE (23:45)
[2019-12-02] VITALS: BP 138/60
[2019-12-02] MEDS: LEVETIRACETAM 500MG PREMIX 100 ML IV SCH ×3 (01:50→20:15)
[2019-12-02 04:00] VITALS: BP 142/77
[2019-12-02 08:00] VITALS: BP 118/58
[2019-12-02] MEDS: FAMOTIDINE 20MG/2ML VIAL IV SCH (08:40)
[2019-12-02] MEDS: APIXABAN 5 MG TABLET PO SCH ×2 (08:40→18:49)
[2019-12-02] MEDS ORDERED: POTASSIUM CHLORIDE 20MEQ/PACKET PO NR (09:00)
[2019-12-02 10:50] LABS: BG BASE EXCESS -3.2 mmol/L (-2.0-2.0); BG CARBOXYHEMOGLOBIN 0.3 % (0.5-1.5); BG DEOXYHEMOGLOBIN 9.1 % (0.0-5.0); BG FRACTION INSPIRED OXYGEN 21; BG HCO3 ACT 21.2 mmol/L (22.0-26.0); BG METHEMOGLOBIN 0.2 % (0.0-1.5); BG OXYGEN SATURATION 90.9 % (92.0-98.5); BG OXYHEMOGLOBIN 90.4 % (94.0-97.0); BG PCO2 36.1 mmHg (35.0-45.0); BG PH 7.387 (7.350-7.450); BG PO2 60.9 mmHg (75.0-100.0); BG SAMPLE SITE RIGHT RADIAL; BG TOTAL HEMOGLOBIN 12.4 g/dL (12.0-18.0); BG VENT MODE ROOM AIR
[2019-12-02] MEDS: DEXT 5%/0.45% NACL 1000ML 1,000 ML IV SCH (10:51)
[2019-12-02 12:00] VITALS: BP 131/84
[2019-12-02 14:07] LABS: HEMATOCRIT 33.5 % (36.0-48.0); HEMOGLOBIN 11.9 g/dL (12.0-16.0); MEAN CORPUSCULAR HEMOGLOBIN 34.3 pg (28.0-32.0); MEAN CORPUSCULAR VOLUME 96.5 fL (81.0-99.0); PLATELET 581 x1000/uL (130-400); RED BLOOD CELL COUNT 3.47 mill/uL (4.2-5.4)
[2019-12-02 16:00] VITALS: BP 125/65
[2019-12-02] MEDS: CEFTRIAXONE 1 G PREMIX 50 ML IV SCH (19:26)
[2019-12-02 20:00] VITALS: BP 122/58
[2019-12-03] VITALS: BP 125/80
[2019-12-03 04:00] VITALS: BP 115/56
[2019-12-03 07:46] LABS: CHLORIDE 111 mEq/L (98-107)
[2019-12-03 08:00] VITALS: BP 107/67
[2019-12-03 08:37] LABS: HEMATOCRIT 33.4 % (36.0-48.0); HEMOGLOBIN 11.8 g/dL (12.0-16.0); MEAN CORPUSCULAR HEMOGLOBIN 36.3 pg (28.0-32.0); MEAN CORPUSCULAR VOLUME 102.7 fL (81.0-99.0); PLATELET 632 x1000/uL (130-400); RED BLOOD CELL COUNT 3.25 mill/uL (4.2-5.4); RED CELL DISTRIBUTION WIDTH 16.5 % (11.6-14.6)
[2019-12-03] MEDS: LEVETIRACETAM 500MG PREMIX 100 ML IV SCH (10:21)
[2019-12-03] MEDS: FAMOTIDINE 20MG/2ML VIAL IV SCH (10:21)
[2019-12-03] MEDS: APIXABAN 5 MG TABLET PO SCH (10:23)
[2019-12-03 12:00] VITALS: BP 119/71
[2019-12-03] MEDS ORDERED: APIX5TAB PO (15:29)
[2019-12-03 16:05] VITALS: BP 136/77
[2019-12-03 16:53] VITALS: BP 136/77
[2019-12-03] MEDS ORDERED: CEFTRIAXONE 1 G PREMIX 50 ML IV SCH (18:30)
[2019-12-07] MEDS ORDERED: APIXABAN 5 MG TABLET PO SCH (17:00)
[2019-12-25] MEDS ORDERED: APIX5TAB MT (17:07)
== END 2019-12-03 17:39 | disposition home or self-care (01) | DRG 299 ==
LOC: ER 09:16 → EDBEDREQ 14:24 → EDBEDREQSVC 14:24 → EDBEDREQTM 14:59 → EDBEDREQ 14:59 → ENRESERV 12-01 14:35 → 7WST 12-01 14:53
PROVIDERS: ADMIT Internal Medicine; ATTEND Internal Medicine
DX: I82.432 Acute embolism and thrombosis of left popliteal vein (principal); I26.99 Other pulmonary embolism without acute cor pulmonale; I50.33 Acute on chronic diastolic (congestive) heart failure; D69.3 Immune thrombocytopenic purpura; J45.901 Unspecified asthma with (acute) exacerbation; N39.0 Urinary tract infection, site not specified; F03.90 Unspecified dementia, unspecified severity, without behavioral disturbance, psychotic disturbance, mood disturbance, and anxiety; G40.909 Epilepsy, unspecified, not intractable, without status epilepticus; R73.9 Hyperglycemia, unspecified; I11.0 Hypertensive heart disease with heart failure; J44.9 Chronic obstructive pulmonary disease, unspecified; K57.90 Diverticulosis of intestine, part unspecified, without perforation or abscess without bleeding; Z90.710 Acquired absence of both cervix and uterus; Z90.81 Acquired absence of spleen; I25.2 Old myocardial infarction; Z86.2 Personal history of diseases of the blood and blood-forming organs and certain disorders involving the immune mechanism; Z88.8 Allergy status to other drugs, medicaments and biological substances; Z79.899 Other long term (current) drug therapy
CPT/HCPCS: 36415; 36600; 71045; 71275; 80048; 80053; 80061; 81003; 82375; 82542; 82550; 82553; 82805; 83605; 83880; 84439; 84443; 84484; 85025; 85027; 86850; 86900; 87804; 90686; 93005; 93970; 94618; 94640; 96365; 96368; 96372; 96375; 97162; 99285; J0696; J1650; J1940; J1953; J3490; J7042; J7050; Q9967

== ENCOUNTER 2020-02-03 12:04 | Inpatient (IN) | payer MEDICARE, MEDICAID ==
[~2020-02-03] VITALS: Ht 152.4 cm; Wt 90.7 kg
[~2020-02-03 12:04] MED LIST changes: +APIX5TAB MT; -ELTR25TA PO; +LEVE500T98 PO; -[UNRECOGNIZED DRUG - OTHER] PO
[2020-02-03 16:56] LABS: PARTIAL THROMBOPLASTIN TIME 33.4 sec (23.4-31.0); PROTHROMBIN TIME 10.9 sec (9.6-11.0)
[2020-02-03 17:00] LABS: BASOPHILS % 0.5 % (0.0-2.0); EOSINOPHILS % 0.7 % (0.0-5.0); HEMATOCRIT. 43.8 % (36.0-48.0); HEMOGLOBIN. 14.8 g/dL (12.0-16.0); LYMPHOCYTES % 52.1 % (20.0-50.0); MEAN CORPUSCULAR HEMOGLOBIN 31.4 pg (28.0-32.0); MEAN CORPUSCULAR VOLUME 92.7 fL (81.0-99.0); MEAN PLATELET VOLUME 9.7 fl (7.4-10.4); MONOCYTES % 10.6 % (2.0-8.0); NEUTROPHILS % 36.1 % (40.0-76.0); RED BLOOD CELL COUNT 4.72 mill/uL (4.2-5.4); RED CELL DISTRIBUTION WIDTH 14.2 % (11.6-14.6)
[2020-02-03 17:01] LABS: CHLORIDE 107 mEq/L (98-107)
[2020-02-03 22:10] VITALS: BP 126/74
[2020-02-03 22:15] VITALS: BP 126/74
[2020-02-03] MEDS ORDERED: IPRATROPIUM/ALBUTEROL 0.5-3(2.5)MG/3ML NEB HHN PRN (23:15)
[2020-02-04] VITALS: BP 118/61
[2020-02-04] MEDS ORDERED: POTASSIUM CHLORIDE 20MEQ TABLET SR PO NR (01:00)
[2020-02-04 04:00] VITALS: BP 118/53
[2020-02-04] MEDS ORDERED: METHYLPREDNISOLONE SOD SUCC 40 MG/ML VIAL IV SCH (06:00)
[2020-02-04 06:40] LABS: CHLORIDE 109 mEq/L (98-107)
[2020-02-04] MEDS ORDERED: OMEPRAZOLE 20MG CAPSULE EXTENDED RELEASE PO SCH (06:45)
[2020-02-04 08:00] VITALS: BP 141/69
[2020-02-04 08:09] LABS: BASOPHILS % 0.4 % (0.0-2.0); HEMATOCRIT. 38.4 % (36.0-48.0); HEMOGLOBIN. 12.8 g/dL (12.0-16.0); MEAN CORPUSCULAR HEMOGLOBIN 30.6 pg (28.0-32.0); MEAN CORPUSCULAR VOLUME 91.7 fL (81.0-99.0); MEAN PLATELET VOLUME 9.9 fl (7.4-10.4); RED BLOOD CELL COUNT 4.18 mill/uL (4.2-5.4); RED CELL DISTRIBUTION WIDTH 14.2 % (11.6-14.6)
[2020-02-04 08:17] LABS: EOSINOPHILS % 1.7 % (0.0-5.0); LYMPHOCYTES % 46.2 % (20.0-50.0); MONOCYTES % 14.7 % (2.0-8.0)
[2020-02-04] MEDS ORDERED: LORATADINE 10MG TABLET PO SCH (09:00)
[2020-02-04] MEDS ORDERED: POTASSIUM CHLORIDE 20MEQ TABLET SR PO SCH (09:00)
[2020-02-04] MEDS ORDERED: LEVETIRACETAM 500MG TABLET PO SCH (09:00)
[2020-02-04] MEDS ORDERED: TOPIRAMATE 25MG TABLET PO SCH (09:00)
[2020-02-04] MEDS ORDERED: APIXABAN 5 MG TABLET PO SCH (09:00)
[2020-02-04] MEDS ORDERED: MEMANTINE HCL 10MG TABLET PO SCH (09:00)
[2020-02-04] MEDS ORDERED: METOPROLOL TARTRATE 25MG TABLET PO SCH (09:00)
[2020-02-04 10:48] LABS: PLATELET 11 x1000/uL (130-400)
[2020-02-04 12:00] VITALS: BP 126/68
[2020-02-04 14:03] LABS: PLATELET 37 x1000/uL (130-400); PLATELET ESTIMATE MARKEDLY DECREASED
[2020-02-04 14:26] VITALS: BP 126/68
[2020-02-04] MEDS ORDERED: MONTELUKAST SODIUM 10MG TABLET PO SCH (17:00)
[2020-02-04] MEDS ORDERED: ATORVASTATIN CALCIUM 10MG TABLET PO SCH (21:00)
== END 2020-02-04 17:00 | disposition home or self-care (01) | DRG 813 ==
LOC: ER 12:04 → 5WST 17:39 → ENRESERV 20:40
PROVIDERS: ADMIT Internal Medicine; ATTEND Internal Medicine
PROC: 30233R1 Transfusion of Nonautologous Platelets into Peripheral Vein, Percutaneous Approach (ICD-10-PCS; principal; 2020-02-03)
DX: D69.3 Immune thrombocytopenic purpura (principal); I50.33 Acute on chronic diastolic (congestive) heart failure; G40.909 Epilepsy, unspecified, not intractable, without status epilepticus; H54.62 Unqualified visual loss, left eye, normal vision right eye; I11.0 Hypertensive heart disease with heart failure; J45.909 Unspecified asthma, uncomplicated; Z79.01 Long term (current) use of anticoagulants; Z79.51 Long term (current) use of inhaled steroids; Z79.899 Other long term (current) drug therapy; Z86.2 Personal history of diseases of the blood and blood-forming organs and certain disorders involving the immune mechanism; Z86.711 Personal history of pulmonary embolism; Z86.718 Personal history of other venous thrombosis and embolism; Z90.81 Acquired absence of spleen
CPT/HCPCS: 36415; 71045; 80053; 85025; 85049; 86850; 86900; 93005; J2920; P9034

== ENCOUNTER 2020-07-28 11:09 | Inpatient (IN) | payer MEDICARE, MEDICAID ==
[~2020-07-28] VITALS: Ht 160 cm; Wt 81.2 kg
[~2020-07-28 11:09] MED LIST changes: -APIX5TAB MT; +P20 PO
[2020-07-28] MEDS ORDERED: APIX5TAB4 PO (11:15)
[2020-07-28] MEDS ORDERED: SODIUM CHLORIDE 0.9% 1000ML BAG (SEPSIS BOLUS) IV ONE (11:45)
[2020-07-28 12:38] LABS: HEMATOCRIT. 40.3 % (36.0-48.0); HEMOGLOBIN. 13.6 g/dL (12.0-16.0); MEAN CORPUSCULAR HEMOGLOBIN 32.1 pg (28.0-32.0); MEAN CORPUSCULAR VOLUME 95.1 fL (81.0-99.0); MEAN PLATELET VOLUME 9.4 fl (7.4-10.4); PLATELET 80 x1000/uL (130-400); RED BLOOD CELL COUNT 4.24 mill/uL (4.2-5.4); RED CELL DISTRIBUTION WIDTH 19.7 % (11.6-14.6)
[2020-07-28 12:45] LABS: CHLORIDE 99 mEq/L (98-107)
[2020-07-28 12:50] LABS: CLARITY URINE CLEAR (CLEAR); COLOR URINE YELLOW (YELLOW); KETONES URINE NEGATIVE (NEGATIVE); LEUKOCYTE ESTERASE URINE NEGATIVE (NEGATIVE); NITRITE URINE NEGATIVE (NEGATIVE); OCCULT BLOOD URINE TRACE (NEGATIVE); PH URINE 6.5 (4.5-8.0); PROTEIN URINE NEGATIVE (NEGATIVE); SPECIFIC GRAVITY URINE 1.019 (1.005-1.030)
[2020-07-28 12:53] LABS: CREATINE KINASE 56 IU/L (26-192)
[2020-07-28 13:07] LABS: NUCLEATED RED BLOOD CELLS 18 /100 WBC; PLATELET ESTIMATE DECREASED
[2020-07-28 13:16] LABS: PROTHROMBIN TIME 10.4 sec (9.6-11.0)
[2020-07-28] MEDS ORDERED: INSULIN REGULAR (HUMULIN R) 300UNITS/3ML SUBCUT ONE (14:00)
[2020-07-28] MEDS ORDERED: MAGNESIUM/ALUMINUM HYDROXIDE/SIMETHICONE 30ML UDC PO PRN (15:15)
[2020-07-28] MEDS ORDERED: ACETAMINOPHEN 650MG/20.3ML UDC GT PRN (15:15)
[2020-07-28] MEDS ORDERED: LEVETIRACETAM 500 MG in SODIUM CHLORIDE 0.9% 100 ML IV SCH (15:15)
[2020-07-28] MEDS ORDERED: ONDANSETRON HCL 4MG/2ML INJ IV PRN (15:15)
[2020-07-28] MEDS ORDERED: ACETAMINOPHEN 650MG SUPP PR PRN (15:15)
[2020-07-28] MEDS ORDERED: GUAIFENESIN 200MG/10ML SUGAR FREE UDC PO PRN (15:15)
[2020-07-28] MEDS ORDERED: IPRATROPIUM/ALBUTEROL 0.5-3(2.5)MG/3ML NEB NEB PRN (15:15)
[2020-07-28] MEDS ORDERED: LORAZEPAM 0.5MG TABLET PO PRN (15:15)
[2020-07-28] MEDS ORDERED: CLONIDINE 0.1MG TABLET PO PRN (15:15)
[2020-07-28] MEDS ORDERED: HYDROCODONE/ACETAMINOPHEN 5/325MG TABLET PO PRN (15:15)
[2020-07-28] MEDS ORDERED: MORPHINE SULFATE 2 MG/ML CPJ (NOT FOR IM USE) IV PRN (15:15)
[2020-07-28] MEDS ORDERED: DEXTROSE 50% WATER 50ML SYRINGE IV PRN (15:15)
[2020-07-28] MEDS ORDERED: DOCUSATE SODIUM 100MG CAPSULE PO PRN (15:15)
[2020-07-28] MEDS ORDERED: LEVETIRACETAM 500MG PREMIX 100 ML IV SCH (15:30)
[2020-07-28] MEDS ORDERED: ATORVASTATIN CALCIUM 10MG TABLET PO SCH (15:30)
[2020-07-28] MEDS ORDERED: LEVOFLOXACIN 500MG PREMIX 100 ML IV SCH (16:00)
[2020-07-28] MEDS: TOPIRAMATE 25MG TABLET PO SCH (18:58)
[2020-07-28] MEDS: MONTELUKAST SODIUM 10MG TABLET PO SCH (18:58)
[2020-07-28] MEDS: MEMANTINE HCL 10MG TABLET PO SCH (18:58)
[2020-07-28] MEDS: BLOOD SUGAR DIAGNOSTIC STRIP TEST SCH ×2 (19:07→22:02)
[2020-07-28] MEDS: INSULIN LISPRO 100 UNITS/ML SUBCUT SCH (21:00)
[2020-07-28] MEDS: SODIUM CHLORIDE 0.45% 1,000 ML IV SCH (21:55)
[2020-07-28] MEDS: FAMOTIDINE 20MG TABLET PO SCH (22:02)
[2020-07-28 22:30] VITALS: BP 136/74
[2020-07-28] MEDS ORDERED: IOHEXOL-350 100 ML BOTTLE ONE (23:17)
[2020-07-29] VITALS (12 sets, daily range): BP systolic 91–153; BP diastolic 41–79
[2020-07-29 00:14] LABS: CREATINE KINASE MB FRACTION 2.3 ng/mL (0.5-3.6)
[2020-07-29] MEDS: LEVETIRACETAM 500MG PREMIX 100 ML IV SCH ×3 (01:35→21:39)
[2020-07-29 06:52] LABS: CHLORIDE 106 mEq/L (98-107)
[2020-07-29 06:56] LABS: BASOPHILS % 0.1 % (0.0-2.0); EOSINOPHILS % 0.2 % (0.0-5.0); HEMOGLOBIN. 12.9 g/dL (12.0-16.0); MEAN CORPUSCULAR HEMOGLOBIN 32.4 pg (28.0-32.0); MEAN CORPUSCULAR VOLUME 95.7 fL (81.0-99.0); MONOCYTES % 7.7 % (2.0-8.0); RED BLOOD CELL COUNT 3.97 mill/uL (4.2-5.4)
[2020-07-29 07:18] LABS: LDL CHOLESTEROL 63 mg/dL (5-100)
[2020-07-29 07:20] LABS: CREATINE KINASE 38 IU/L (26-192); HDL CHOLESTEROL 42 mg/dL (40-59)
[2020-07-29 07:23] LABS: CREATINE KINASE MB FRACTION 2.1 ng/mL (0.5-3.6)
[2020-07-29] MEDS: INSULIN LISPRO 100 UNITS/ML SUBCUT SCH ×4 (08:00→21:38)
[2020-07-29] MEDS: TOPIRAMATE 25MG TABLET PO SCH ×2 (09:20→17:49)
[2020-07-29] MEDS: MEMANTINE HCL 10MG TABLET PO SCH (09:20)
[2020-07-29] MEDS: BLOOD SUGAR DIAGNOSTIC STRIP TEST SCH ×4 (09:21→21:37)
[2020-07-29] MEDS: SODIUM CHLORIDE 0.45% 1,000 ML IV SCH (09:24)
[2020-07-29 10:26] LABS: PLATELET ESTIMATE MARKEDLY DECREASED
[2020-07-29 10:29] LABS: MEAN PLATELET VOLUME 8.7 fl (7.4-10.4); PLATELET 46 x1000/uL (130-400)
[2020-07-29] MEDS ORDERED: POTASSIUM CHLORIDE 20MEQ TABLET SR PO SCH (10:45)
[2020-07-29] MEDS: LEVOFLOXACIN 500MG PREMIX 100 ML IV SCH (10:50)
[2020-07-29] MEDS ORDERED: METOPROLOL TARTRATE 50MG TABLET PO NR (12:09)
[2020-07-29 13:23] LABS: BG BASE EXCESS 2.8 mmol/L (-2.0-2.0); BG CARBOXYHEMOGLOBIN 0.8 % (0.5-1.5); BG DEOXYHEMOGLOBIN 4.5 % (0.0-5.0); BG FRACTION INSPIRED OXYGEN 21; BG HCO3 ACT 26.6 mmol/L (22.0-26.0); BG METHEMOGLOBIN 0.2 % (0.0-1.5); BG OXYGEN SATURATION 95.5 % (92.0-98.5); BG OXYHEMOGLOBIN 94.5 % (94.0-97.0); BG PCO2 38.5 mmHg (35.0-45.0); BG PH 7.458 (7.350-7.450); BG PO2 73.4 mmHg (75.0-100.0); BG SAMPLE SITE RIGHT FEMORAL; BG TOTAL HEMOGLOBIN 12.9 g/dL (12.0-18.0); BG VENT MODE ROOM AIR
[2020-07-29 16:13] LABS: CREATINE KINASE MB FRACTION 1.6 ng/mL (0.5-3.6)
[2020-07-29] MEDS: MONTELUKAST SODIUM 10MG TABLET PO SCH (17:49)
[2020-07-29] MEDS: DEXAMETHASONE 4MG/ML 1ML VIAL IV SCH ×2 (17:49→23:16)
[2020-07-29] MEDS: FAMOTIDINE 20MG TABLET PO SCH (21:39)
[2020-07-29] MEDS: ATORVASTATIN CALCIUM 10MG TABLET PO SCH (21:39)
[2020-07-29] MEDS: METOPROLOL TARTRATE 50MG TABLET PO SCH (21:40)
[2020-07-30] VITALS (12 sets, daily range): BP systolic 105–138; BP diastolic 57–80
[2020-07-30] MEDS: SODIUM CHLORIDE 0.45% 1,000 ML IV SCH (00:50)
[2020-07-30] MEDS: DEXAMETHASONE 4MG/ML 1ML VIAL IV SCH ×4 (05:13→23:47)
[2020-07-30 06:16] LABS: CHLORIDE 108 mEq/L (98-107)
[2020-07-30 07:10] LABS: HEMATOCRIT. 36.6 % (36.0-48.0); HEMOGLOBIN. 12.5 g/dL (12.0-16.0); MEAN CORPUSCULAR HEMOGLOBIN 32.2 pg (28.0-32.0); MEAN CORPUSCULAR VOLUME 94.7 fL (81.0-99.0); MEAN PLATELET VOLUME 9.5 fl (7.4-10.4); RED BLOOD CELL COUNT 3.87 mill/uL (4.2-5.4); RED CELL DISTRIBUTION WIDTH 19.3 % (11.6-14.6)
[2020-07-30] MEDS: BLOOD SUGAR DIAGNOSTIC STRIP TEST SCH ×4 (07:30→20:42)
[2020-07-30 07:48] LABS: PLATELET 30 x1000/uL (130-400)
[2020-07-30] MEDS: INSULIN LISPRO 100 UNITS/ML SUBCUT SCH ×4 (08:00→20:59)
[2020-07-30] MEDS: TOPIRAMATE 25MG TABLET PO SCH ×2 (08:36→17:03)
[2020-07-30] MEDS: METOPROLOL TARTRATE 50MG TABLET PO SCH ×2 (08:36→20:58)
[2020-07-30] MEDS: MEMANTINE HCL 10MG TABLET PO SCH (08:36)
[2020-07-30] MEDS: LEVETIRACETAM 500MG PREMIX 100 ML IV SCH ×2 (08:38→20:58)
[2020-07-30 10:32] LABS: NUCLEATED RED BLOOD CELLS 13 /100 WBC; PLATELET ESTIMATE MARKEDLY DECREASED
[2020-07-30] MEDS: LEVOFLOXACIN 500MG PREMIX 100 ML IV SCH (11:31)
[2020-07-30] MEDS: MONTELUKAST SODIUM 10MG TABLET PO SCH (17:03)
[2020-07-30] MEDS: ATORVASTATIN CALCIUM 10MG TABLET PO SCH (20:57)
[2020-07-30] MEDS: FAMOTIDINE 20MG TABLET PO SCH (20:57)
[2020-07-31] VITALS (15 sets, daily range): BP systolic 125–173; BP diastolic 67–95
[2020-07-31] MEDS: DEXAMETHASONE 4MG/ML 1ML VIAL IV SCH ×3 (05:54→17:24)
[2020-07-31 06:38] LABS: CHLORIDE 108 mEq/L (98-107); HEMATOCRIT. 34.2 % (36.0-48.0); HEMOGLOBIN. 11.7 g/dL (12.0-16.0); MEAN CORPUSCULAR HEMOGLOBIN 32.3 pg (28.0-32.0); MEAN CORPUSCULAR VOLUME 94.7 fL (81.0-99.0); MEAN PLATELET VOLUME 9.7 fl (7.4-10.4); RED BLOOD CELL COUNT 3.62 mill/uL (4.2-5.4); RED CELL DISTRIBUTION WIDTH 19.2 % (11.6-14.6)
[2020-07-31] MEDS: BLOOD SUGAR DIAGNOSTIC STRIP TEST SCH ×4 (07:30→20:37)
[2020-07-31] MEDS: INSULIN LISPRO 100 UNITS/ML SUBCUT SCH ×4 (08:21→20:37)
[2020-07-31] MEDS: METOPROLOL TARTRATE 50MG TABLET PO SCH ×2 (08:24→20:34)
[2020-07-31] MEDS: TOPIRAMATE 25MG TABLET PO SCH ×2 (08:25→17:24)
[2020-07-31] MEDS: LEVETIRACETAM 500MG PREMIX 100 ML IV SCH ×2 (08:25→20:40)
[2020-07-31] MEDS: MEMANTINE HCL 10MG TABLET PO SCH (08:25)
[2020-07-31 08:31] LABS: PLATELET 43 x1000/uL (130-400)
[2020-07-31] MEDS: LEVOFLOXACIN 500MG PREMIX 100 ML IV SCH (11:14)
[2020-07-31 14:08] LABS: NUCLEATED RED BLOOD CELLS 4 /100 WBC; PLATELET ESTIMATE DECREASED
[2020-07-31] MEDS: SODIUM CHLORIDE 0.45% 1,000 ML IV SCH (17:13)
[2020-07-31] MEDS: MONTELUKAST SODIUM 10MG TABLET PO SCH (17:24)
[2020-07-31] MEDS: ATORVASTATIN CALCIUM 10MG TABLET PO SCH (20:33)
[2020-07-31] MEDS: FAMOTIDINE 20MG TABLET PO SCH (20:33)
[2020-08-01] VITALS (11 sets, daily range): BP systolic 110–146; BP diastolic 61–89
[2020-08-01] MEDS: SODIUM CHLORIDE 0.45% 1,000 ML IV SCH ×3 (02:24→20:39)
[2020-08-01 06:02] LABS: CHLORIDE 109 mEq/L (98-107)
[2020-08-01 06:03] LABS: BASOPHILS % 0.1 % (0.0-2.0); HEMATOCRIT. 33.3 % (36.0-48.0); HEMOGLOBIN. 11.5 g/dL (12.0-16.0); LYMPHOCYTES % 30.5 % (20.0-50.0); MEAN CORPUSCULAR HEMOGLOBIN 32.9 pg (28.0-32.0); MEAN CORPUSCULAR VOLUME 95.3 fL (81.0-99.0); MEAN PLATELET VOLUME 9.3 fl (7.4-10.4); MONOCYTES % 13.1 % (2.0-8.0); NEUTROPHILS % 56.3 % (40.0-76.0); PLATELET 63 x1000/uL (130-400); RED CELL DISTRIBUTION WIDTH 19.3 % (11.6-14.6)
[2020-08-01] MEDS: BLOOD SUGAR DIAGNOSTIC STRIP TEST SCH ×4 (06:50→21:00)
[2020-08-01] MEDS: INSULIN LISPRO 100 UNITS/ML SUBCUT SCH ×4 (07:28→21:00)
[2020-08-01] MEDS: TOPIRAMATE 25MG TABLET PO SCH ×2 (09:40→17:11)
[2020-08-01] MEDS: MEMANTINE HCL 10MG TABLET PO SCH (10:01)
[2020-08-01] MEDS: METOPROLOL TARTRATE 50MG TABLET PO SCH ×2 (10:01→20:32)
[2020-08-01] MEDS: LEVETIRACETAM 500MG PREMIX 100 ML IV SCH ×2 (10:12→20:32)
[2020-08-01] MEDS: LEVOFLOXACIN 500MG PREMIX 100 ML IV SCH (12:29)
[2020-08-01] MEDS ORDERED: LEVOFLOXACIN 500MG TABLET PO SCH (13:00)
[2020-08-01] MEDS: MONTELUKAST SODIUM 10MG TABLET PO SCH (17:11)
[2020-08-01] MEDS: FAMOTIDINE 20MG TABLET PO SCH (20:31)
[2020-08-01] MEDS: ATORVASTATIN CALCIUM 10MG TABLET PO SCH (20:31)
[2020-08-02] VITALS (12 sets, daily range): BP systolic 104–131; BP diastolic 58–80
[2020-08-02 06:10] LABS: HEMATOCRIT. 35.4 % (36.0-48.0); HEMOGLOBIN. 12.3 g/dL (12.0-16.0); MEAN CORPUSCULAR HEMOGLOBIN 33.1 pg (28.0-32.0); MEAN CORPUSCULAR VOLUME 95.5 fL (81.0-99.0); MEAN PLATELET VOLUME 8.9 fl (7.4-10.4); RED BLOOD CELL COUNT 3.71 mill/uL (4.2-5.4); RED CELL DISTRIBUTION WIDTH 18.8 % (11.6-14.6)
[2020-08-02 06:12] LABS: CHLORIDE 104 mEq/L (98-107)
[2020-08-02 06:19] LABS: PLATELET 41 x1000/uL (130-400)
[2020-08-02] MEDS: BLOOD SUGAR DIAGNOSTIC STRIP TEST SCH ×4 (07:30→20:43)
[2020-08-02] MEDS: INSULIN LISPRO 100 UNITS/ML SUBCUT SCH ×4 (08:00→20:43)
[2020-08-02] MEDS: TOPIRAMATE 25MG TABLET PO SCH ×2 (08:38→17:20)
[2020-08-02] MEDS: LEVETIRACETAM 500MG PREMIX 100 ML IV SCH ×2 (08:38→20:44)
[2020-08-02] MEDS: MEMANTINE HCL 10MG TABLET PO SCH (08:38)
[2020-08-02] MEDS: METOPROLOL TARTRATE 50MG TABLET PO SCH ×2 (08:39→20:39)
[2020-08-02 09:16] LABS: NUCLEATED RED BLOOD CELLS 8 /100 WBC; PLATELET ESTIMATE MARKEDLY DECREASED
[2020-08-02] MEDS: MONTELUKAST SODIUM 10MG TABLET PO SCH (17:20)
[2020-08-02] MEDS: FAMOTIDINE 20MG TABLET PO SCH (20:40)
[2020-08-02] MEDS: ATORVASTATIN CALCIUM 10MG TABLET PO SCH (20:40)
[2020-08-03] VITALS (17 sets, daily range): BP systolic 102–144; BP diastolic 46–97
[2020-08-03] MEDS: SODIUM CHLORIDE 0.45% 1,000 ML IV SCH (03:59)
[2020-08-03] MEDS: BLOOD SUGAR DIAGNOSTIC STRIP TEST SCH ×4 (06:45→20:59)
[2020-08-03] MEDS: LEVETIRACETAM 500MG PREMIX 100 ML IV SCH ×2 (09:03→20:55)
[2020-08-03] MEDS: METOPROLOL TARTRATE 50MG TABLET PO SCH ×2 (09:03→20:56)
[2020-08-03] MEDS: TOPIRAMATE 25MG TABLET PO SCH ×2 (09:03→17:30)
[2020-08-03] MEDS: INSULIN LISPRO 100 UNITS/ML SUBCUT SCH ×4 (09:04→20:58)
[2020-08-03] MEDS: MEMANTINE HCL 10MG TABLET PO SCH (09:08)
[2020-08-03 13:06] LABS: CHLORIDE 105 mEq/L (98-107)
[2020-08-03 13:16] LABS: HEMATOCRIT. 34.9 % (36.0-48.0); HEMOGLOBIN. 11.7 g/dL (12.0-16.0); MEAN CORPUSCULAR HEMOGLOBIN 31.8 pg (28.0-32.0); MEAN CORPUSCULAR VOLUME 94.5 fL (81.0-99.0); MEAN PLATELET VOLUME 10.2 fl (7.4-10.4); RED CELL DISTRIBUTION WIDTH 18.7 % (11.6-14.6)
[2020-08-03 13:47] LABS: NUCLEATED RED BLOOD CELLS 13 /100 WBC
[2020-08-03 13:48] LABS: PLATELET ESTIMATE MARKEDLY DECREASED
[2020-08-03 13:49] LABS: PLATELET 6 x1000/uL (130-400)
[2020-08-03] MEDS ORDERED: PREDNISONE 20MG TABLET PO SCH (15:00)
[2020-08-03] MEDS: LEVOFLOXACIN 500MG PREMIX 100 ML IV SCH (16:08)
[2020-08-03] MEDS: DEXAMETHASONE 4MG/ML 1ML VIAL IV SCH ×2 (17:29→23:51)
[2020-08-03] MEDS: MONTELUKAST SODIUM 10MG TABLET PO SCH (17:30)
[2020-08-03] MEDS ORDERED: DEXAMETHASONE 4MG/ML 1ML VIAL IV SCH (18:00)
[2020-08-03 18:08] LABS: CLARITY URINE CLEAR (CLEAR); COLOR URINE YELLOW (YELLOW); KETONES URINE NEGATIVE (NEGATIVE); LEUKOCYTE ESTERASE URINE NEGATIVE (NEGATIVE); NITRITE URINE NEGATIVE (NEGATIVE); OCCULT BLOOD URINE 1+ (NEGATIVE); PROTEIN URINE TRACE (NEGATIVE); SPECIFIC GRAVITY URINE 1.019 (1.005-1.030)
[2020-08-03] MEDS: FAMOTIDINE 20MG TABLET PO SCH (20:56)
[2020-08-03] MEDS: ATORVASTATIN CALCIUM 10MG TABLET PO SCH (20:56)
[2020-08-03 21:19] LABS: HEMATOCRIT 34.9 % (36.0-48.0); HEMOGLOBIN 11.9 g/dL (12.0-16.0)
[2020-08-03 21:34] LABS: INR 1.1; PROTHROMBIN TIME 11.8 sec (9.6-11.0)
[2020-08-04] VITALS (11 sets, daily range): BP systolic 105–136; BP diastolic 57–84
[2020-08-04] MEDS: DEXAMETHASONE 4MG/ML 1ML VIAL IV SCH ×3 (05:14→17:39)
[2020-08-04] MEDS: LEVETIRACETAM 500MG PREMIX 100 ML IV SCH ×2 (08:17→20:28)
[2020-08-04] MEDS: MEMANTINE HCL 10MG TABLET PO SCH (08:17)
[2020-08-04] MEDS: METOPROLOL TARTRATE 50MG TABLET PO SCH ×2 (08:17→20:28)
[2020-08-04] MEDS: TOPIRAMATE 25MG TABLET PO SCH ×2 (08:17→17:39)
[2020-08-04] MEDS: BLOOD SUGAR DIAGNOSTIC STRIP TEST SCH ×4 (08:18→20:29)
[2020-08-04] MEDS: INSULIN LISPRO 100 UNITS/ML SUBCUT SCH ×4 (08:21→20:37)
[2020-08-04] MEDS ORDERED: INSULIN LISPRO 100 UNITS/ML SUBCUT SCH (13:15)
[2020-08-04] MEDS: LEVOFLOXACIN 500MG PREMIX 100 ML IV SCH (15:30)
[2020-08-04] MEDS: MONTELUKAST SODIUM 10MG TABLET PO SCH (17:39)
[2020-08-04] MEDS: ATORVASTATIN CALCIUM 10MG TABLET PO SCH (20:27)
[2020-08-04] MEDS: FAMOTIDINE 20MG TABLET PO SCH (20:27)
[2020-08-05] MEDS: DEXAMETHASONE 4MG/ML 1ML VIAL IV SCH ×3 (00:21→12:51)
[2020-08-05 01:50] VITALS: BP 110/66
[2020-08-05 04:00] VITALS: BP 133/70
[2020-08-05 05:40] VITALS: BP 134/79
[2020-08-05 06:18] LABS: HEMATOCRIT 33.6 % (36.0-48.0); HEMOGLOBIN 11.5 g/dL (12.0-16.0); MEAN CORPUSCULAR HEMOGLOBIN 32.1 pg (28.0-32.0); MEAN CORPUSCULAR VOLUME 93.5 fL (81.0-99.0); PLATELET 57 x1000/uL (130-400); RED BLOOD CELL COUNT 3.59 mill/uL (4.2-5.4); RED CELL DISTRIBUTION WIDTH 18.8 % (11.6-14.6)
[2020-08-05 06:37] LABS: CHLORIDE 106 mEq/L (98-107)
[2020-08-05] MEDS: BLOOD SUGAR DIAGNOSTIC STRIP TEST SCH ×2 (07:30→12:30)
[2020-08-05 08:00] VITALS: BP 143/81
[2020-08-05] MEDS: MEMANTINE HCL 10MG TABLET PO SCH (08:46)
[2020-08-05] MEDS: METOPROLOL TARTRATE 50MG TABLET PO SCH (08:46)
[2020-08-05] MEDS: TOPIRAMATE 25MG TABLET PO SCH (08:46)
[2020-08-05] MEDS: INSULIN LISPRO 100 UNITS/ML SUBCUT SCH ×2 (08:49→12:54)
[2020-08-05] MEDS: LEVETIRACETAM 500MG PREMIX 100 ML IV SCH (08:50)
[2020-08-05 10:00] VITALS: BP 115/57
[2020-08-05] MEDS ORDERED: LEVO500T2 MT (12:01)
[2020-08-05] MEDS ORDERED: LEVOFLOXACIN 500MG TABLET PO SCH (15:00)
[2020-08-05 16:09] VITALS: BP 133/76
== END 2020-08-05 17:00 | disposition home health service (06) | DRG 64 ==
LOC: ER 11:09 → EDBEDREQTM 13:12 → EDBEDREQ 13:12 → EDBEDREQSVC 13:12 → EDBEDREQ 14:04 → EDBEDREQTM 14:04 → ENRESERV 20:42 → 5EST 22:29
PROVIDERS: ADMIT Internal Medicine; ATTEND Internal Medicine
PROC: 30233R1 Transfusion of Nonautologous Platelets into Peripheral Vein, Percutaneous Approach (ICD-10-PCS; principal; 2020-08-03)
DX: I63.9 Cerebral infarction, unspecified (principal); I50.33 Acute on chronic diastolic (congestive) heart failure; G93.40 Encephalopathy, unspecified; E87.2 Acidosis; D69.3 Immune thrombocytopenic purpura; M48.56XA Collapsed vertebra, not elsewhere classified, lumbar region, initial encounter for fracture; N39.0 Urinary tract infection, site not specified; I11.0 Hypertensive heart disease with heart failure; D72.825 Bandemia; E11.65 Type 2 diabetes mellitus with hyperglycemia; F03.90 Unspecified dementia, unspecified severity, without behavioral disturbance, psychotic disturbance, mood disturbance, and anxiety; G40.909 Epilepsy, unspecified, not intractable, without status epilepticus; J44.9 Chronic obstructive pulmonary disease, unspecified; M47.812 Spondylosis without myelopathy or radiculopathy, cervical region; M47.816 Spondylosis without myelopathy or radiculopathy, lumbar region; M48.02 Spinal stenosis, cervical region; M48.061 Spinal stenosis, lumbar region without neurogenic claudication; W18.30XA Fall on same level, unspecified, initial encounter; R26.9 Unspecified abnormalities of gait and mobility; E66.01 Morbid (severe) obesity due to excess calories; Y93.89 Activity, other specified; Y92.89 Other specified places as the place of occurrence of the external cause; Y99.8 Other external cause status; Z79.01 Long term (current) use of anticoagulants; Z79.51 Long term (current) use of inhaled steroids; Z79.899 Other long term (current) drug therapy; Z82.49 Family history of ischemic heart disease and other diseases of the circulatory system; Z83.3 Family history of diabetes mellitus; Z86.711 Personal history of pulmonary embolism; Z86.2 Personal history of diseases of the blood and blood-forming organs and certain disorders involving the immune mechanism; Z86.718 Personal history of other venous thrombosis and embolism; Z90.710 Acquired absence of both cervix and uterus; Z90.81 Acquired absence of spleen; Z68.31 Body mass index [BMI] 31.0-31.9, adult; Z88.8 Allergy status to other drugs, medicaments and biological substances; G90.8 Other disorders of autonomic nervous system; S00.12XA Contusion of left eyelid and periocular area, initial encounter; H54.7 Unspecified visual loss
CPT/HCPCS: 36415; 36600; 71045; 71275; 72131; 72141; 72148; 73590; 80048; 80053; 80061; 81003; 82375; 82550; 82553; 82805; 82962; 83036; 83605; 83880; 84145; 84443; 84484; 85014; 85018; 85025; 85027; 85049; 85384; 86140; 86850; 86900; 93005; 93306; 93880; 93970; 97116; 97162; 99285; J1100; J1815; J1953; J1956; J7030; J7512; P9034; Q9967

== ENCOUNTER 2020-09-17 11:37 | Inpatient (IN) | payer MEDICARE, MEDICAID ==
[~2020-09-17] VITALS: Ht 167.6 cm; Wt 102.1 kg
[~2020-09-17 11:37] MED LIST changes: +LEVO500T2 MT
[2020-09-17 13:04] LABS: BASOPHILS % 0.1 % (0.0-2.0); HEMATOCRIT. 30.6 % (36.0-48.0); LYMPHOCYTES % 15.6 % (20.0-50.0); MEAN CORPUSCULAR HEMOGLOBIN 30.4 pg (28.0-32.0); MEAN CORPUSCULAR VOLUME 92.8 fL (81.0-99.0); MONOCYTES % 4.1 % (2.0-8.0); NEUTROPHILS % 80.2 % (40.0-76.0); PLATELET 303 x1000/uL (130-400); RED BLOOD CELL COUNT 3.29 mill/uL (4.2-5.4); RED CELL DISTRIBUTION WIDTH 16.9 % (11.6-14.6)
[2020-09-17 13:08] LABS: CHLORIDE 104 mEq/L (98-107)
[2020-09-17 13:11] LABS: INR 1.3; PROTHROMBIN TIME 13.3 sec (9.6-11.0)
[2020-09-17] MEDS ORDERED: VANCOMYCIN 1 G PREMIX 200 ML IV ONE (16:45)
[2020-09-17] MEDS ORDERED: PIPERACILLIN/TAZ 3.375G PREMIX 50 ML IV ONE (16:45)
[2020-09-17] MEDS ORDERED: DIATR MEGLU/DIATRIZOATE SOLN 30ML ONE (16:56)
[2020-09-17] MEDS ORDERED: IOHEXOL-300 100 ML BOTTLE ONE (21:34)
[2020-09-17 23:30] VITALS: BP 119/63
[2020-09-18] MEDS ORDERED: APIX5TAB PO (00:17)
[2020-09-18] MEDS ORDERED: LOSA50TA41 PO (00:25)
[2020-09-18] MEDS ORDERED: ACETAMINOPHEN 325MG TABLET PO PRN (00:45)
[2020-09-18] MEDS: PIPERACILLIN/TAZOBACTAM 3.375 G in DEXT 5% WATER 100 ML IV SCH ×3 (02:25→17:51)
[2020-09-18 04:00] VITALS: BP 128/55
[2020-09-18] MEDS: VANCOMYCIN 750 MG PREMIX 150 ML IV SCH ×2 (05:22→18:51)
[2020-09-18 05:57] LABS: BASOPHILS % 0.6 % (0.0-2.0); HEMATOCRIT. 26.9 % (36.0-48.0); HEMOGLOBIN. 8.9 g/dL (12.0-16.0); LYMPHOCYTES % 15.4 % (20.0-50.0); MEAN CORPUSCULAR HEMOGLOBIN 30.1 pg (28.0-32.0); MEAN CORPUSCULAR VOLUME 91.3 fL (81.0-99.0); MEAN PLATELET VOLUME 7.1 fl (7.4-10.4); MONOCYTES % 5.7 % (2.0-8.0); NEUTROPHILS % 78.3 % (40.0-76.0); PLATELET 280 x1000/uL (130-400); RED BLOOD CELL COUNT 2.95 mill/uL (4.2-5.4); RED CELL DISTRIBUTION WIDTH 16.8 % (11.6-14.6)
[2020-09-18] MEDS ORDERED: PIPERACILLIN/TAZOBACTAM 3.375 G/VIAL IV SCH (06:00)
[2020-09-18 06:02] LABS: CHLORIDE 104 mEq/L (98-107)
[2020-09-18] MEDS: OMEPRAZOLE 20MG CAPSULE EXTENDED RELEASE PO SCH (06:29)
[2020-09-18 08:00] VITALS: BP 102/46
[2020-09-18] MEDS: PREDNISONE 20MG TABLET PO SCH (08:12)
[2020-09-18] MEDS: ENOXAPARIN 40MG/0.4ML SYR SUBCUT SCH (08:13)
[2020-09-18] MEDS ORDERED: INSULIN LISPRO 100 UNITS/ML SUBCUT SCH (08:20)
[2020-09-18] MEDS ORDERED: BLOOD SUGAR DIAGNOSTIC STRIP TEST SCH (09:00)
[2020-09-18] MEDS ORDERED: POTASSIUM CHLORIDE INJ 40 MEQ in DEXT 5% WATER 250 ML IV NR (11:30)
[2020-09-18] MEDS ORDERED: DEXTROSE 50% WATER 50ML SYRINGE IV PRN (11:45)
[2020-09-18 12:00] VITALS: BP 118/46
[2020-09-18] MEDS: BLOOD SUGAR DIAGNOSTIC STRIP TEST SCH ×3 (12:20→20:47)
[2020-09-18] MEDS: INSULIN LISPRO 100 UNITS/ML SUBCUT SCH ×3 (12:27→20:53)
[2020-09-18] MEDS ORDERED: BUPIVACAINE HCL 0.5% (5MG/ML) 50ML ONE (14:12)
[2020-09-18] MEDS ORDERED: BACITRACIN 50,000 UNITS/VIAL ONE (14:12)
[2020-09-18] MEDS ORDERED: HYDROCODONE/ACETAMINOPHEN 5/325MG TABLET PO PRN (15:15)
[2020-09-18] MEDS ORDERED: MORPHINE SULFATE 4 MG/ML CPJ (NOT FOR IM USE) IV PRN (15:15)
[2020-09-18] MEDS ORDERED: ONDANSETRON HCL 4MG/2ML INJ IV PRN ×2 (15:15→15:45)
[2020-09-18] MEDS ORDERED: LABETALOL 5MG/ML SYR 20 MG/4 ML SYRINGE IV PRN (15:45)
[2020-09-18] MEDS ORDERED: HYDROMORPHONE HCL/PF 2MG/ML CPJ IV PRN (15:45)
[2020-09-18] MEDS ORDERED: MEPERIDINE HCL/PF 25MG/ML CPJ IV PRN (15:45)
[2020-09-18] MEDS ORDERED: LEVETIRACETAM 1,000 MG in SODIUM CHLORIDE 0.9% 100 ML IV SCH (17:00)
[2020-09-18] MEDS: MONTELUKAST SODIUM 10MG TABLET PO SCH (18:15)
[2020-09-18] MEDS: DEXT 5%/0.45% NACL KCL 20MEQ/L 1,000 ML IV SCH (18:15)
[2020-09-18 20:00] VITALS: BP 120/69
[2020-09-18] MEDS: LEVETIRACETAM 1,000 MG in SODIUM CHLORIDE 0.9% 100 ML IV SCH (20:46)
[2020-09-18] MEDS: ATORVASTATIN CALCIUM 10MG TABLET PO SCH (20:46)
[2020-09-18] MEDS ORDERED: LEVETIRACETAM 500MG/5ML CUP PO SCH (21:00)
[2020-09-18 21:32] LABS: BG BASE EXCESS -1.8 mmol/L (-2.0-2.0); BG CARBOXYHEMOGLOBIN 0.1 % (0.5-1.5); BG DEOXYHEMOGLOBIN 2.3 % (0.0-5.0); BG FRACTION INSPIRED OXYGEN 30; BG HCO3 ACT 22.9 mmol/L (22.0-26.0); BG METHEMOGLOBIN 0.3 % (0.0-1.5); BG OXYGEN SATURATION 97.7 % (92.0-98.5); BG OXYHEMOGLOBIN 97.3 % (94.0-97.0); BG PCO2 38.4 mmHg (35.0-45.0); BG PH 7.393 (7.350-7.450); BG PO2 125.2 mmHg (75.0-100.0); BG TOTAL HEMOGLOBIN 9.7 g/dL (12.0-18.0)
[2020-09-18] MEDS: SODIUM CHLORIDE 0.9% INJ 3ML FLUSH IVF SCH (22:00)
[2020-09-19] VITALS (15 sets, daily range): BP systolic 100–138; BP diastolic 56–83
[2020-09-19] MEDS: PIPERACILLIN/TAZOBACTAM 3.375 G in DEXT 5% WATER 100 ML IV SCH ×3 (01:43→17:44)
[2020-09-19] MEDS: DEXT 5%/0.45% NACL KCL 20MEQ/L 1,000 ML IV SCH ×3 (01:43→21:56)
[2020-09-19] MEDS: SODIUM CHLORIDE 0.9% INJ 3ML FLUSH IVF SCH ×3 (05:23→21:56)
[2020-09-19] MEDS: VANCOMYCIN 750 MG PREMIX 150 ML IV SCH (05:23)
[2020-09-19 06:14] LABS: BASOPHILS % 0.1 % (0.0-2.0); EOSINOPHILS % 0.1 % (0.0-5.0); HEMATOCRIT. 23.2 % (36.0-48.0); HEMOGLOBIN. 7.6 g/dL (12.0-16.0); LYMPHOCYTES % 9.1 % (20.0-50.0); MEAN CORPUSCULAR HEMOGLOBIN 30.5 pg (28.0-32.0); MEAN CORPUSCULAR VOLUME 92.8 fL (81.0-99.0); MEAN PLATELET VOLUME 7.4 fl (7.4-10.4); MONOCYTES % 4.8 % (2.0-8.0); NEUTROPHILS % 85.9 % (40.0-76.0); PLATELET 212 x1000/uL (130-400); RED CELL DISTRIBUTION WIDTH 16.8 % (11.6-14.6)
[2020-09-19] MEDS: OMEPRAZOLE 20MG CAPSULE EXTENDED RELEASE PO SCH (06:32)
[2020-09-19] MEDS: BLOOD SUGAR DIAGNOSTIC STRIP TEST SCH ×4 (06:32→20:41)
[2020-09-19 06:57] LABS: CHLORIDE 108 mEq/L (98-107)
[2020-09-19] MEDS: PREDNISONE 20MG TABLET PO SCH (08:26)
[2020-09-19] MEDS: ENOXAPARIN 40MG/0.4ML SYR SUBCUT SCH (08:34)
[2020-09-19] MEDS: INSULIN LISPRO 100 UNITS/ML SUBCUT SCH ×4 (08:40→20:41)
[2020-09-19] MEDS: LEVETIRACETAM 1,000 MG in SODIUM CHLORIDE 0.9% 100 ML IV SCH ×2 (09:26→21:56)
[2020-09-19] MEDS: VANCOMYCIN 1 G PREMIX 200 ML IV SCH (13:30)
[2020-09-19] MEDS: MORPHINE SULFATE 2 MG/ML CPJ (NOT FOR IM USE) IV PRN (13:46)
[2020-09-19 16:36] LABS: CLARITY URINE CLOUDY (CLEAR); COLOR URINE YELLOW (YELLOW); KETONES URINE NEGATIVE (NEGATIVE); LEUKOCYTE ESTERASE URINE 2+ (NEGATIVE); NITRITE URINE NEGATIVE (NEGATIVE); OCCULT BLOOD URINE 2+ (NEGATIVE); PROTEIN URINE 1+ (NEGATIVE); SPECIFIC GRAVITY URINE 1.028 (1.005-1.030)
[2020-09-19] MEDS: MONTELUKAST SODIUM 10MG TABLET PO SCH (17:38)
[2020-09-19 19:53] LABS: HEMATOCRIT 29.3 % (36.0-48.0); HEMOGLOBIN 9.7 g/dL (12.0-16.0)
[2020-09-19 20:08] LABS: INR 1.1; PROTHROMBIN TIME 11.2 sec (9.6-11.0)
[2020-09-19] MEDS: ATORVASTATIN CALCIUM 10MG TABLET PO SCH (20:40)
[2020-09-19] MEDS: FAMOTIDINE 20MG TABLET PO SCH (20:40)
[2020-09-19] MEDS ORDERED: LEVETIRACETAM 1,000 MG in SODIUM CHLORIDE 0.9% 100 ML IV SCH (22:00)
[2020-09-20] VITALS (12 sets, daily range): BP systolic 105–137; BP diastolic 57–84
[2020-09-20] MEDS: PIPERACILLIN/TAZOBACTAM 3.375 G in DEXT 5% WATER 100 ML IV SCH ×3 (02:17→17:19)
[2020-09-20] MEDS: VANCOMYCIN 1 G PREMIX 200 ML IV SCH (03:57)
[2020-09-20] MEDS: SODIUM CHLORIDE 0.9% INJ 3ML FLUSH IVF SCH ×3 (06:18→21:11)
[2020-09-20 07:20] LABS: BASOPHILS % 0.1 % (0.0-2.0); EOSINOPHILS % 0.1 % (0.0-5.0); HEMATOCRIT. 25.9 % (36.0-48.0); HEMOGLOBIN. 8.5 g/dL (12.0-16.0); LYMPHOCYTES % 15.5 % (20.0-50.0); MEAN CORPUSCULAR HEMOGLOBIN 30.4 pg (28.0-32.0); MEAN CORPUSCULAR VOLUME 92.4 fL (81.0-99.0); MEAN PLATELET VOLUME 7.6 fl (7.4-10.4); MONOCYTES % 5.6 % (2.0-8.0); NEUTROPHILS % 78.7 % (40.0-76.0); PLATELET 199 x1000/uL (130-400); RED BLOOD CELL COUNT 2.81 mill/uL (4.2-5.4); RED CELL DISTRIBUTION WIDTH 15.7 % (11.6-14.6)
[2020-09-20 07:27] LABS: CHLORIDE 111 mEq/L (98-107)
[2020-09-20] MEDS: BLOOD SUGAR DIAGNOSTIC STRIP TEST SCH ×4 (07:59→21:09)
[2020-09-20] MEDS: FAMOTIDINE 20MG TABLET PO SCH ×2 (08:15→21:07)
[2020-09-20] MEDS: PREDNISONE 20MG TABLET PO SCH (08:15)
[2020-09-20] MEDS: LEVETIRACETAM 1,000 MG in SODIUM CHLORIDE 0.9% 100 ML IV SCH ×2 (08:15→21:08)
[2020-09-20] MEDS: OMEPRAZOLE 20MG CAPSULE EXTENDED RELEASE PO SCH (08:15)
[2020-09-20] MEDS: INSULIN LISPRO 100 UNITS/ML SUBCUT SCH ×3 (08:16→21:09)
[2020-09-20] MEDS: ENOXAPARIN 40MG/0.4ML SYR SUBCUT SCH (08:17)
[2020-09-20] MEDS: MORPHINE SULFATE 2 MG/ML CPJ (NOT FOR IM USE) IV PRN (11:08)
[2020-09-20] MEDS: DEXT 5%/0.45% NACL KCL 20MEQ/L 1,000 ML IV SCH ×2 (11:10→17:16)
[2020-09-20] MEDS: MONTELUKAST SODIUM 10MG TABLET PO SCH (17:17)
[2020-09-20] MEDS ORDERED: VANCOMYCIN 1 G PREMIX 200 ML IV SCH (18:00)
[2020-09-20] MEDS: LEVOFLOXACIN 500MG PREMIX 100 ML IV SCH (20:17)
[2020-09-20] MEDS: ATORVASTATIN CALCIUM 10MG TABLET PO SCH (21:07)
[2020-09-20] MEDS: HYDROCODONE/ACETAMINOPHEN 5/325MG TABLET PO PRN (23:59)
[2020-09-21] VITALS (8 sets, daily range): BP systolic 121–148; BP diastolic 65–87
[2020-09-21] MEDS: DEXT 5%/0.45% NACL KCL 20MEQ/L 1,000 ML IV SCH ×2 (04:18→13:14)
[2020-09-21] MEDS: SODIUM CHLORIDE 0.9% INJ 3ML FLUSH IVF SCH ×3 (05:38→21:59)
[2020-09-21 06:09] LABS: BASOPHILS % 0.2 % (0.0-2.0); EOSINOPHILS % 0.3 % (0.0-5.0); HEMATOCRIT. 25.4 % (36.0-48.0); HEMOGLOBIN. 8.5 g/dL (12.0-16.0); LYMPHOCYTES % 24.6 % (20.0-50.0); MEAN CORPUSCULAR HEMOGLOBIN 30.9 pg (28.0-32.0); MEAN CORPUSCULAR VOLUME 91.7 fL (81.0-99.0); MEAN PLATELET VOLUME 7.7 fl (7.4-10.4); MONOCYTES % 8.3 % (2.0-8.0); NEUTROPHILS % 66.6 % (40.0-76.0); PLATELET 215 x1000/uL (130-400); RED BLOOD CELL COUNT 2.76 mill/uL (4.2-5.4); RED CELL DISTRIBUTION WIDTH 15.8 % (11.6-14.6)
[2020-09-21 06:30] LABS: CHLORIDE 111 mEq/L (98-107)
[2020-09-21 06:56] LABS: VANCOMYCIN TROUGH 4.6 ug/mL (5.0-10.0)
[2020-09-21] MEDS: BLOOD SUGAR DIAGNOSTIC STRIP TEST SCH ×4 (07:30→21:27)
[2020-09-21] MEDS: INSULIN LISPRO 100 UNITS/ML SUBCUT SCH ×4 (08:00→21:27)
[2020-09-21] MEDS: PREDNISONE 20MG TABLET PO SCH (09:07)
[2020-09-21] MEDS: FAMOTIDINE 20MG TABLET PO SCH ×2 (09:07→21:25)
[2020-09-21] MEDS: ENOXAPARIN 30MG/0.3ML SYR SUBCUT SCH ×2 (09:08→21:25)
[2020-09-21] MEDS: LEVETIRACETAM 1,000 MG in SODIUM CHLORIDE 0.9% 100 ML IV SCH ×2 (09:56→21:58)
[2020-09-21] MEDS: MONTELUKAST SODIUM 10MG TABLET PO SCH (16:51)
[2020-09-21] MEDS: LEVOFLOXACIN 500MG PREMIX 100 ML IV SCH (20:49)
[2020-09-21] MEDS: ATORVASTATIN CALCIUM 10MG TABLET PO SCH (21:25)
[2020-09-21] MEDS: HYDROCODONE/ACETAMINOPHEN 5/325MG TABLET PO PRN (21:57)
[2020-09-22] VITALS (9 sets, daily range): BP systolic 118–176; BP diastolic 72–99
[2020-09-22] MEDS: DEXT 5%/0.45% NACL KCL 20MEQ/L 1,000 ML IV SCH (05:08)
[2020-09-22] MEDS: SODIUM CHLORIDE 0.9% INJ 3ML FLUSH IVF SCH ×2 (05:09→13:54)
[2020-09-22 06:31] LABS: HEMATOCRIT. 26.4 % (36.0-48.0); MEAN CORPUSCULAR HEMOGLOBIN 31.1 pg (28.0-32.0); MEAN CORPUSCULAR VOLUME 91.6 fL (81.0-99.0); MEAN PLATELET VOLUME 7.4 fl (7.4-10.4); PLATELET 230 x1000/uL (130-400); RED BLOOD CELL COUNT 2.88 mill/uL (4.2-5.4)
[2020-09-22 07:25] LABS: CHLORIDE 111 mEq/L (98-107)
[2020-09-22] MEDS: BLOOD SUGAR DIAGNOSTIC STRIP TEST SCH ×3 (07:53→17:36)
[2020-09-22] MEDS: INSULIN LISPRO 100 UNITS/ML SUBCUT SCH ×3 (08:00→17:42)
[2020-09-22] MEDS: FAMOTIDINE 20MG TABLET PO SCH (09:41)
[2020-09-22] MEDS: PREDNISONE 20MG TABLET PO SCH (09:42)
[2020-09-22] MEDS: ENOXAPARIN 30MG/0.3ML SYR SUBCUT SCH (09:42)
[2020-09-22] MEDS: LEVETIRACETAM 1,000 MG in SODIUM CHLORIDE 0.9% 100 ML IV SCH (09:42)
[2020-09-22] MEDS: HYDROCODONE/ACETAMINOPHEN 5/325MG TABLET PO PRN ×4 (13:29→17:37)
[2020-09-22 16:52] LABS: PLATELET ESTIMATE NORMAL
[2020-09-22] MEDS: MONTELUKAST SODIUM 10MG TABLET PO SCH (17:06)
[2020-09-23] MEDS ORDERED: LEVOFLOXACIN 500MG TABLET PO SCH (20:00)
== END 2020-09-22 18:05 | DRG 853 ==
LOC: ER 11:37 → 6WST 17:16 → ENRESERV 20:10 → 5EST 09-19 16:43
PROVIDERS: ADMIT Internal Medicine; ATTEND Internal Medicine
PROC: 0W9F0ZZ Drainage of Abdominal Wall, Open Approach (ICD-10-PCS; principal; 2020-09-18)
PROC: 30233N1 Transfusion of Nonautologous Red Blood Cells into Peripheral Vein, Percutaneous Approach (ICD-10-PCS; 2020-09-19)
DX: A41.9 Sepsis, unspecified organism (principal); I50.33 Acute on chronic diastolic (congestive) heart failure; D69.3 Immune thrombocytopenic purpura; E87.1 Hypo-osmolality and hyponatremia; E87.2 Acidosis; G93.40 Encephalopathy, unspecified; K63.2 Fistula of intestine; L02.211 Cutaneous abscess of abdominal wall; M48.50XA Collapsed vertebra, not elsewhere classified, site unspecified, initial encounter for fracture; D64.9 Anemia, unspecified; E11.65 Type 2 diabetes mellitus with hyperglycemia; F03.90 Unspecified dementia, unspecified severity, without behavioral disturbance, psychotic disturbance, mood disturbance, and anxiety; G40.909 Epilepsy, unspecified, not intractable, without status epilepticus; H54.7 Unspecified visual loss; I11.0 Hypertensive heart disease with heart failure; I48.91 Unspecified atrial fibrillation; J44.9 Chronic obstructive pulmonary disease, unspecified; K42.9 Umbilical hernia without obstruction or gangrene; K57.90 Diverticulosis of intestine, part unspecified, without perforation or abscess without bleeding; K76.0 Fatty (change of) liver, not elsewhere classified; L98.8 Other specified disorders of the skin and subcutaneous tissue; M48.02 Spinal stenosis, cervical region; N20.0 Calculus of kidney; Z20.828 Contact with and (suspected) exposure to other viral communicable diseases; R00.0 Tachycardia, unspecified; D69.6 Thrombocytopenia, unspecified; Z79.891 Long term (current) use of opiate analgesic; Z86.711 Personal history of pulmonary embolism; Z79.899 Other long term (current) drug therapy; Z90.710 Acquired absence of both cervix and uterus; Z90.81 Acquired absence of spleen; Z86.718 Personal history of other venous thrombosis and embolism; Z79.01 Long term (current) use of anticoagulants; Z79.51 Long term (current) use of inhaled steroids; Z86.73 Personal history of transient ischemic attack (TIA), and cerebral infarction without residual deficits
CPT/HCPCS: 36415; 36600; 71045; 74176; 74177; 80048; 80053; 80202; 81003; 82375; 82805; 82962; 83036; 85014; 85018; 85025; 85049; 85384; 86850; 86900; 86920; 87070; 87075; 87077; 87186; 87426; 93005; 99291; J1170; J1650; J1815; J1953; J1956; J2270; J2543; J3370; J3480; J3490; J7050; J7060; J7512; P9016; Q9963; Q9967

== ENCOUNTER 2021-10-21 08:51 | Inpatient (IN) | payer MEDICARE, MEDICAID ==
[~2021-10-21] VITALS: Ht 165.1 cm; Wt 81.6 kg
[~2021-10-21 08:51] MED LIST changes: +ALBU90AE INH; +ASCO-339 MT; +CHOL3000 PO; +DEXA2TAB PO; +LOSA50TA41 PO; -MONT10TA26 PO; +MONT10TA32 PO; -P20 PO; +ZINC220T4 MT
[2021-10-21 09:32] LABS: BASOPHILS % 0.2 % (0.0-2.0); EOSINOPHILS % 0.3 % (0.0-5.0); HEMATOCRIT. 43.5 % (36.0-48.0); HEMOGLOBIN. 13.9 g/dL (12.0-16.0); LYMPHOCYTES % 18.2 % (20.0-50.0); MEAN CORPUSCULAR HEMOGLOBIN 26.4 pg (28.0-32.0); MEAN CORPUSCULAR VOLUME 82.7 fL (81.0-99.0); MONOCYTES % 6.9 % (2.0-8.0); NEUTROPHILS % 74.4 % (40.0-76.0); PLATELET 76 x1000/uL (130-400); RED BLOOD CELL COUNT 5.27 mill/uL (4.2-5.4); RED CELL DISTRIBUTION WIDTH 17.9 % (11.6-14.6)
[2021-10-21 09:40] LABS: CHLORIDE 107 mEq/L (98-107)
[2021-10-21 10:33] LABS: CLARITY URINE CLEAR (CLEAR); COLOR URINE YELLOW (YELLOW); KETONES URINE NEGATIVE (NEGATIVE); LEUKOCYTE ESTERASE URINE NEGATIVE (NEGATIVE); NITRITE URINE NEGATIVE (NEGATIVE); OCCULT BLOOD URINE 2+ (NEGATIVE); PH URINE 5.5 (4.5-8.0); PROTEIN URINE TRACE (NEGATIVE); SPECIFIC GRAVITY URINE 1.024 (1.005-1.030); UROBILINOGEN URINE 0.2 E.U./dL (0.2-1.0)
[2021-10-21] MEDS ORDERED: LEVETIRACETAM 500MG PREMIX 100 ML IV ONE (11:00)
[2021-10-21] MEDS ORDERED: PIPERACILLIN/TAZ 3.375G PREMIX 50 ML IV ONE (11:00)
[2021-10-21] MEDS ORDERED: IPRATROPIUM/ALBUTEROL 0.5-3(2.5)MG/3ML NEB NEB PRN (11:15)
[2021-10-21] MEDS ORDERED: DEXTROSE 50% WATER 50ML SYRINGE IV PRN (11:15)
[2021-10-21] MEDS ORDERED: ONDANSETRON HCL 4MG/2ML INJ IV PRN (11:15)
[2021-10-21] MEDS ORDERED: GUAIFENESIN 200MG/10ML SUGAR FREE UDC PO PRN (11:15)
[2021-10-21] MEDS ORDERED: CLONIDINE 0.1MG TABLET PO PRN (11:15)
[2021-10-21] MEDS ORDERED: MAGNESIUM/ALUMINUM HYDROXIDE/SIMETHICONE 30ML UDC PO PRN (11:15)
[2021-10-21] MEDS ORDERED: DOCUSATE SODIUM 100MG CAPSULE PO PRN (11:15)
[2021-10-21] MEDS ORDERED: DIPHENHYDRAMINE 50MG/ML VIAL IV PRN (11:15)
[2021-10-21] MEDS ORDERED: LORAZEPAM 0.5MG TABLET PO PRN (11:15)
[2021-10-21] MEDS ORDERED: ACETAMINOPHEN 650MG SUPP PR PRN (11:15)
[2021-10-21] MEDS ORDERED: NA PHOS,M-B/NA PHOS,DI-BA ENEMA 118ML PR PRN (11:15)
[2021-10-21] MEDS ORDERED: ACETAMINOPHEN 325MG TABLET PO PRN (11:15)
[2021-10-21] MEDS ORDERED: HYDROCODONE/ACETAMINOPHEN 5/325MG TABLET PO PRN (11:15)
[2021-10-21 12:48] LABS: PROTHROMBIN TIME 10.4 sec (9.6-11.0)
[2021-10-21] MEDS: BLOOD SUGAR DIAGNOSTIC STRIP TEST SCH ×3 (13:00→21:00)
[2021-10-21] MEDS ORDERED: LEVETIRACETAM 1000MG PREMIX 100 ML IV SCH (13:00)
[2021-10-21] MEDS: VANCOMYCIN 1 G PREMIX 200 ML IV SCH (13:02)
[2021-10-21] MEDS: INSULIN LISPRO 100 UNITS/ML SUBCUT SCH ×3 (13:20→21:00)
[2021-10-21 13:29] LABS: BG BASE EXCESS 1.6 mmol/L (-2.0-2.0); BG CARBOXYHEMOGLOBIN 0.2 % (0.5-1.5); BG DEOXYHEMOGLOBIN 2.5 % (0.0-5.0); BG FRACTION INSPIRED OXYGEN 21; BG HCO3 ACT 25.5 mmol/L (22.0-26.0); BG METHEMOGLOBIN 0.2 % (0.0-1.5); BG OXYGEN SATURATION 97.5 % (92.0-98.5); BG OXYHEMOGLOBIN 97.1 % (94.0-97.0); BG PCO2 38.1 mmHg (35.0-45.0); BG PH 7.444 (7.350-7.450); BG PO2 93.3 mmHg (75.0-100.0); BG SAMPLE SITE RIGHT RADIAL; BG TOTAL HEMOGLOBIN 14.8 g/dL (12.0-18.0); BG VENT MODE ROOM AIR
[2021-10-21 14:34] VITALS: BP 143/72
[2021-10-21] MEDS ORDERED: IOHEXOL-300 100 ML BOTTLE ONE (14:55)
[2021-10-21 15:00] VITALS: BP 143/72
[2021-10-21 16:00] VITALS: BP 137/77
[2021-10-21] MEDS ORDERED: NALOXONE HCL 0.4MG/ML VIAL IV PRN (17:00)
[2021-10-21 17:10] VITALS: BP 137/77
[2021-10-21] MEDS: LEVETIRACETAM 1000MG PREMIX 100 ML IV SCH (17:33)
[2021-10-21 18:20] LABS: CHLORIDE 105 mEq/L (98-107); CREATINE KINASE 104 IU/L (26-192)
[2021-10-21 20:00] VITALS: BP 140/71
[2021-10-21] MEDS ORDERED: LEVETIRACETAM 500MG PREMIX 100 ML IV SCH (21:00)
[2021-10-21] MEDS ORDERED: PIPERACILLIN/TAZOBACTAM 3.375 G in DEXTROSE 5% WATER 50 ML IV SCH (22:00)
[2021-10-21] MEDS: FAMOTIDINE 20MG TABLET PO SCH (22:02)
[2021-10-21] MEDS: PIPERACILLIN/TAZOBACTAM 3.375 G in DEXTROSE 5% WATER 50 ML IV SCH (22:02)
[2021-10-21 23:57] LABS: CREATINE KINASE 48 IU/L (26-192)
[2021-10-21 23:58] LABS: CREATINE KINASE MB FRACTION 1.1 ng/mL (0.5-3.6)
[2021-10-22] VITALS: BP 117/63
[2021-10-22] MEDS: LEVETIRACETAM 1000MG PREMIX 100 ML IV SCH ×2 (00:49→08:25)
[2021-10-22 04:00] VITALS: BP 120/68
[2021-10-22 06:19] LABS: BASOPHILS % 0.3 % (0.0-2.0); EOSINOPHILS % 1.1 % (0.0-5.0); HEMATOCRIT. 42.5 % (36.0-48.0); HEMOGLOBIN. 13.7 g/dL (12.0-16.0); LYMPHOCYTES % 43.9 % (20.0-50.0); MEAN CORPUSCULAR HEMOGLOBIN 26.5 pg (28.0-32.0); MEAN CORPUSCULAR VOLUME 82.1 fL (81.0-99.0); MEAN PLATELET VOLUME 9.4 fl (7.4-10.4); MONOCYTES % 11.1 % (2.0-8.0); NEUTROPHILS % 43.6 % (40.0-76.0); PLATELET 79 x1000/uL (130-400); RED BLOOD CELL COUNT 5.18 mill/uL (4.2-5.4)
[2021-10-22 06:26] LABS: CHLORIDE 106 mEq/L (98-107)
[2021-10-22] MEDS: VANCOMYCIN 1 G PREMIX 200 ML IV SCH (06:42)
[2021-10-22] MEDS: BLOOD SUGAR DIAGNOSTIC STRIP TEST SCH ×4 (06:59→21:01)
[2021-10-22] MEDS: INSULIN LISPRO 100 UNITS/ML SUBCUT SCH ×4 (06:59→21:00)
[2021-10-22 08:00] VITALS: BP 126/73
[2021-10-22] MEDS: PIPERACILLIN/TAZOBACTAM 3.375 G in DEXTROSE 5% WATER 50 ML IV SCH ×3 (08:25→22:14)
[2021-10-22] MEDS ORDERED: PNEUMOCOCCAL 23-VAL P-SAC VAC 0.5 ML IM ONE (09:00)
[2021-10-22 12:00] VITALS: BP 120/71
[2021-10-22 16:00] VITALS: BP 130/67
[2021-10-22 20:00] VITALS: BP 129/66
[2021-10-22] MEDS: FAMOTIDINE 20MG TABLET PO SCH (21:01)
[2021-10-22] MEDS: LEVETIRACETAM 1,000 MG in SODIUM CHLORIDE 0.9% 100 ML IV SCH (21:01)
[2021-10-23] VITALS: BP 125/65
[2021-10-23] MEDS: VANCOMYCIN 1 G PREMIX 200 ML IV SCH ×3 (00:57→17:01)
[2021-10-23 04:00] VITALS: BP 121/65
[2021-10-23] MEDS: BLOOD SUGAR DIAGNOSTIC STRIP TEST SCH ×4 (05:19→20:57)
[2021-10-23] MEDS: INSULIN LISPRO 100 UNITS/ML SUBCUT SCH ×4 (05:24→20:57)
[2021-10-23] MEDS: PIPERACILLIN/TAZOBACTAM 3.375 G in DEXTROSE 5% WATER 50 ML IV SCH ×3 (05:24→20:56)
[2021-10-23 08:00] VITALS: BP 140/80
[2021-10-23 08:00] LABS: CHLORIDE 107 mEq/L (98-107)
[2021-10-23 08:01] LABS: BASOPHILS % 0.3 % (0.0-2.0); EOSINOPHILS % 1.7 % (0.0-5.0); HEMATOCRIT. 41.2 % (36.0-48.0); LYMPHOCYTES % 46.1 % (20.0-50.0); MEAN CORPUSCULAR HEMOGLOBIN 25.8 pg (28.0-32.0); MEAN CORPUSCULAR VOLUME 81.8 fL (81.0-99.0); MEAN PLATELET VOLUME 9.4 fl (7.4-10.4); MONOCYTES % 10.2 % (2.0-8.0); NEUTROPHILS % 41.7 % (40.0-76.0); PLATELET 72 x1000/uL (130-400); RED BLOOD CELL COUNT 5.04 mill/uL (4.2-5.4)
[2021-10-23] MEDS: LEVETIRACETAM 1,000 MG in SODIUM CHLORIDE 0.9% 100 ML IV SCH (08:51)
[2021-10-23 12:00] VITALS: BP 136/72
[2021-10-23 16:00] VITALS: BP 125/73
[2021-10-23 20:00] VITALS: BP 121/65
[2021-10-23] MEDS: FAMOTIDINE 20MG TABLET PO SCH (20:56)
[2021-10-23] MEDS: LEVETIRACETAM 500MG TABLET PO SCH (20:56)
[2021-10-24] VITALS: BP 109/67
[2021-10-24] MEDS: VANCOMYCIN 1 G PREMIX 200 ML IV SCH (03:30)
[2021-10-24 04:00] VITALS: BP 149/81
[2021-10-24] MEDS: INSULIN LISPRO 100 UNITS/ML SUBCUT SCH ×4 (05:49→21:13)
[2021-10-24] MEDS: PIPERACILLIN/TAZOBACTAM 3.375 G in DEXTROSE 5% WATER 50 ML IV SCH ×3 (05:50→21:12)
[2021-10-24] MEDS: BLOOD SUGAR DIAGNOSTIC STRIP TEST SCH ×4 (05:50→21:12)
[2021-10-24 07:39] LABS: BASOPHILS % 0.3 % (0.0-2.0); EOSINOPHILS % 2.2 % (0.0-5.0); HEMATOCRIT. 42.2 % (36.0-48.0); HEMOGLOBIN. 13.5 g/dL (12.0-16.0); LYMPHOCYTES % 42.6 % (20.0-50.0); MEAN CORPUSCULAR HEMOGLOBIN 26.3 pg (28.0-32.0); MEAN CORPUSCULAR VOLUME 82.4 fL (81.0-99.0); MEAN PLATELET VOLUME 9.1 fl (7.4-10.4); MONOCYTES % 10.5 % (2.0-8.0); NEUTROPHILS % 44.4 % (40.0-76.0); PLATELET 59 x1000/uL (130-400); RED BLOOD CELL COUNT 5.12 mill/uL (4.2-5.4); RED CELL DISTRIBUTION WIDTH 17.4 % (11.6-14.6)
[2021-10-24 08:00] VITALS: BP 135/62
[2021-10-24 08:07] LABS: CHLORIDE 106 mEq/L (98-107)
[2021-10-24] MEDS: LEVETIRACETAM 500MG TABLET PO SCH ×2 (08:38→21:12)
[2021-10-24 12:00] VITALS: BP 153/87
[2021-10-24] MEDS: PREDNISONE 10MG TABLET PO SCH (13:17)
[2021-10-24 16:00] VITALS: BP 140/80
[2021-10-24 20:00] VITALS: BP 146/79
[2021-10-24] MEDS: FAMOTIDINE 20MG TABLET PO SCH (21:12)
[2021-10-25] VITALS: BP 146/82
[2021-10-25 04:00] VITALS: BP 165/81
[2021-10-25 05:17] LABS: BASOPHILS % 0.3 % (0.0-2.0); EOSINOPHILS % 1.1 % (0.0-5.0); HEMATOCRIT. 42.2 % (36.0-48.0); HEMOGLOBIN. 13.7 g/dL (12.0-16.0); LYMPHOCYTES % 41.7 % (20.0-50.0); MEAN CORPUSCULAR HEMOGLOBIN 26.8 pg (28.0-32.0); MEAN CORPUSCULAR VOLUME 82.5 fL (81.0-99.0); MEAN PLATELET VOLUME 9.4 fl (7.4-10.4); NEUTROPHILS % 47.9 % (40.0-76.0); PLATELET 60 x1000/uL (130-400); RED BLOOD CELL COUNT 5.11 mill/uL (4.2-5.4); RED CELL DISTRIBUTION WIDTH 17.7 % (11.6-14.6)
[2021-10-25] MEDS: VANCOMYCIN 1 G PREMIX 200 ML IV SCH ×2 (05:26→06:53)
[2021-10-25 05:35] LABS: CHLORIDE 107 mEq/L (98-107)
[2021-10-25] MEDS: BLOOD SUGAR DIAGNOSTIC STRIP TEST SCH ×3 (06:00→16:40)
[2021-10-25] MEDS: INSULIN LISPRO 100 UNITS/ML SUBCUT SCH ×3 (06:00→16:40)
[2021-10-25] MEDS: PIPERACILLIN/TAZOBACTAM 3.375 G in DEXTROSE 5% WATER 50 ML IV SCH ×2 (07:18→13:25)
[2021-10-25 08:00] VITALS: BP 137/72
[2021-10-25] MEDS: PREDNISONE 10MG TABLET PO SCH (09:00)
[2021-10-25] MEDS: LEVETIRACETAM 500MG TABLET PO SCH (09:00)
[2021-10-25 12:00] VITALS: BP 114/65
[2021-10-25] MEDS ORDERED: LEVO500T89 MT (13:42)
[2021-10-25] MEDS ORDERED: SULF1TAB48 MT (13:43)
[2021-10-25 15:43] VITALS: BP 114/65
[2021-10-25 16:00] VITALS: BP 130/80
== END 2021-10-25 18:20 | disposition home or self-care (01) | DRG 100 ==
LOC: ER 08:51 → 7EST 10:56 → ENRESERV 11:49 → 7EST 20:14
PROVIDERS: ADMIT Internal Medicine; ATTEND Internal Medicine
PROC: 4A10X4Z Monitoring of Central Nervous Electrical Activity, External Approach (ICD-10-PCS; principal; 2021-10-24)
DX: G40.909 Epilepsy, unspecified, not intractable, without status epilepticus (principal); I50.33 Acute on chronic diastolic (congestive) heart failure; K63.2 Fistula of intestine; D69.3 Immune thrombocytopenic purpura; G93.49 Other encephalopathy; I11.0 Hypertensive heart disease with heart failure; D64.9 Anemia, unspecified; E11.65 Type 2 diabetes mellitus with hyperglycemia; E88.09 Other disorders of plasma-protein metabolism, not elsewhere classified; F03.90 Unspecified dementia, unspecified severity, without behavioral disturbance, psychotic disturbance, mood disturbance, and anxiety; J44.9 Chronic obstructive pulmonary disease, unspecified; R26.89 Other abnormalities of gait and mobility; Z20.822 Contact with and (suspected) exposure to COVID-19; E66.9 Obesity, unspecified; Z86.2 Personal history of diseases of the blood and blood-forming organs and certain disorders involving the immune mechanism; Z86.711 Personal history of pulmonary embolism; Z86.718 Personal history of other venous thrombosis and embolism; Z86.73 Personal history of transient ischemic attack (TIA), and cerebral infarction without residual deficits; Z90.710 Acquired absence of both cervix and uterus; Z90.81 Acquired absence of spleen; Z88.8 Allergy status to other drugs, medicaments and biological substances; Z91.018 Allergy to other foods; Z79.2 Long term (current) use of antibiotics; Z79.899 Other long term (current) drug therapy; Z68.30 Body mass index [BMI] 30.0-30.9, adult; Z79.51 Long term (current) use of inhaled steroids
CPT/HCPCS: 36415; 36600; 70551; 71045; 74178; 80048; 80053; 80202; 81003; 82375; 82542; 82550; 82553; 82805; 82962; 84443; 84484; 85025; 86850; 86900; 87070; 87426; 93005; 93880; 93970; 95816; 97162; 99285; C1893; J1200; J1815; J1953; J2405; J2543; J3370; J7050; J7060; J7512; Q9967

== ENCOUNTER 2021-11-07 09:21 | Inpatient (IN) | payer MEDICARE, MEDICAID ==
[~2021-11-07] VITALS: Ht 152.4 cm; Wt 81.4 kg
[~2021-11-07 09:21] MED LIST changes: -DEXA2TAB PO; -LEVO500T2 MT; +LEVO500T89 MT; +SULF1TAB48 MT
[2021-11-07 10:39] LABS: CHLORIDE 104 mEq/L (98-107)
[2021-11-07 10:41] LABS: BASOPHILS % 0.3 % (0.0-2.0); EOSINOPHILS % 0.5 % (0.0-5.0); LYMPHOCYTES % 28.6 % (20.0-50.0); MEAN CORPUSCULAR VOLUME 83.3 fL (81.0-99.0); MEAN PLATELET VOLUME 12.9 fl (7.4-10.4); MONOCYTES % 7.7 % (2.0-8.0); NEUTROPHILS % 62.9 % (40.0-76.0); RED CELL DISTRIBUTION WIDTH 18.4 % (11.6-14.6)
[2021-11-07 10:43] LABS: CLARITY URINE TURBID (CLEAR); COLOR URINE RED (YELLOW); KETONES URINE 2+ (NEGATIVE); LEUKOCYTE ESTERASE URINE 3+ (NEGATIVE); NITRITE URINE POSITIVE (NEGATIVE); OCCULT BLOOD URINE 3+ (NEGATIVE); PROTEIN URINE 2+ (NEGATIVE); SPECIFIC GRAVITY URINE 1.019 (1.005-1.030)
[2021-11-07 10:50] LABS: PLATELET 4 x1000/uL (130-400)
[2021-11-07 11:45] LABS: PLATELET ESTIMATE MARKEDLY DECREASED
[2021-11-07 13:05] LABS: CARBAMAZEPINE < 0.5 ug/mL (4-12); VALPROIC ACID < 3.0 ug/mL (50-100)
[2021-11-07] MEDS ORDERED: CEFTRIAXONE 1 G PREMIX 50 ML IV ONE (13:30)
[2021-11-07] MEDS ORDERED: IOHEXOL-300 100 ML BOTTLE ONE (13:47)
[2021-11-07] MEDS ORDERED: LEVETIRACETAM 500MG PREMIX 100 ML IV ONE ×3 (15:30→15:45)
[2021-11-07 23:22] LABS: BASOPHILS % 0.4 % (0.0-2.0); EOSINOPHILS % 0.5 % (0.0-5.0); HEMATOCRIT. 37.6 % (36.0-48.0); HEMOGLOBIN. 12.3 g/dL (12.0-16.0); MEAN CORPUSCULAR VOLUME 82.9 fL (81.0-99.0); MEAN PLATELET VOLUME 11.7 fl (7.4-10.4); MONOCYTES % 9.7 % (2.0-8.0); NEUTROPHILS % 60.4 % (40.0-76.0); RED BLOOD CELL COUNT 4.54 mill/uL (4.2-5.4); RED CELL DISTRIBUTION WIDTH 18.3 % (11.6-14.6)
[2021-11-07 23:47] LABS: PLATELET 4 x1000/uL (130-400)
[2021-11-08] VITALS (24 sets, daily range): BP systolic 97–156; BP diastolic 56–94
[2021-11-08] MEDS ORDERED: HYDROCODONE/ACETAMINOPHEN 5/325MG TABLET PO PRN ×3 (03:15→15:15)
[2021-11-08] MEDS ORDERED: ACETAMINOPHEN 650MG/20.3ML UDC PO PRN (03:15)
[2021-11-08] MEDS ORDERED: IPRATROPIUM/ALBUTEROL 0.5-3(2.5)MG/3ML NEB HHN PRN (03:15)
[2021-11-08] MEDS ORDERED: NALOXONE HCL 0.4MG/ML VIAL IV PRN (03:30)
[2021-11-08] MEDS: PANTOPRAZOLE 40MG DR TABLET PO SCH (05:53)
[2021-11-08] MEDS: METHYLPREDNISOLONE SOD SUCC 40 MG/ML VIAL IV SCH ×3 (05:53→21:48)
[2021-11-08] MEDS: LEVETIRACETAM 500MG TABLET PO SCH ×2 (08:38→21:47)
[2021-11-08 08:41] LABS: BASOPHILS % 0.3 % (0.0-2.0); EOSINOPHILS % 0.3 % (0.0-5.0); HEMATOCRIT. 37.4 % (36.0-48.0); HEMOGLOBIN. 12.1 g/dL (12.0-16.0); LYMPHOCYTES % 19.6 % (20.0-50.0); MEAN CORPUSCULAR HEMOGLOBIN 27.2 pg (28.0-32.0); MEAN CORPUSCULAR VOLUME 84.2 fL (81.0-99.0); MEAN PLATELET VOLUME 9.6 fl (7.4-10.4); MONOCYTES % 2.2 % (2.0-8.0); NEUTROPHILS % 77.6 % (40.0-76.0); RED BLOOD CELL COUNT 4.44 mill/uL (4.2-5.4); RED CELL DISTRIBUTION WIDTH 18.9 % (11.6-14.6)
[2021-11-08] MEDS: METOPROLOL TARTRATE 25MG TABLET PO SCH ×2 (08:41→21:47)
[2021-11-08 08:43] LABS: CHLORIDE 104 mEq/L (98-107)
[2021-11-08 09:02] LABS: PLATELET 5 x1000/uL (130-400)
[2021-11-08] MEDS ORDERED: ONDANSETRON HCL 4MG/2ML INJ IV PRN (15:15)
[2021-11-09] VITALS (18 sets, daily range): BP systolic 117–157; BP diastolic 64–92
[2021-11-09] MEDS: METHYLPREDNISOLONE SOD SUCC 40 MG/ML VIAL IV SCH ×3 (05:50→22:45)
[2021-11-09] MEDS: PANTOPRAZOLE 40MG DR TABLET PO SCH (05:50)
[2021-11-09 07:02] LABS: HEMATOCRIT. 36.9 % (36.0-48.0); HEMOGLOBIN. 12.2 g/dL (12.0-16.0); LYMPHOCYTES % 19.8 % (20.0-50.0); MEAN CORPUSCULAR VOLUME 84.6 fL (81.0-99.0); MEAN PLATELET VOLUME 11.8 fl (7.4-10.4); MONOCYTES % 3.9 % (2.0-8.0); NEUTROPHILS % 76.3 % (40.0-76.0); RED BLOOD CELL COUNT 4.37 mill/uL (4.2-5.4); RED CELL DISTRIBUTION WIDTH 18.2 % (11.6-14.6)
[2021-11-09 07:03] LABS: CHLORIDE 107 mEq/L (98-107)
[2021-11-09 08:08] LABS: PLATELET 6 x1000/uL (130-400)
[2021-11-09] MEDS: METOPROLOL TARTRATE 25MG TABLET PO SCH ×2 (09:39→22:46)
[2021-11-09] MEDS: LEVETIRACETAM 500MG TABLET PO SCH ×2 (09:39→22:45)
[2021-11-09] MEDS: CEFTRIAXONE 1,000 MG in DEXTROSE 5% WATER 50 ML IV SCH (16:16)
[2021-11-10] VITALS (15 sets, daily range): BP systolic 108–159; BP diastolic 63–82
[2021-11-10] MEDS: METHYLPREDNISOLONE SOD SUCC 40 MG/ML VIAL IV SCH ×3 (06:18→21:30)
[2021-11-10] MEDS: PANTOPRAZOLE 40MG DR TABLET PO SCH (06:18)
[2021-11-10 07:05] LABS: CHLORIDE 108 mEq/L (98-107)
[2021-11-10 07:37] LABS: HEMATOCRIT. 36.9 % (36.0-48.0); HEMOGLOBIN. 12.1 g/dL (12.0-16.0); MEAN CORPUSCULAR HEMOGLOBIN 27.8 pg (28.0-32.0); MEAN CORPUSCULAR VOLUME 84.7 fL (81.0-99.0); MEAN PLATELET VOLUME 11.6 fl (7.4-10.4); MONOCYTES % 3.5 % (2.0-8.0); NEUTROPHILS % 85.5 % (40.0-76.0); RED BLOOD CELL COUNT 4.35 mill/uL (4.2-5.4); RED CELL DISTRIBUTION WIDTH 17.8 % (11.6-14.6)
[2021-11-10 07:59] LABS: PLATELET 32 x1000/uL (130-400)
[2021-11-10] MEDS: LEVETIRACETAM 500MG TABLET PO SCH ×2 (08:48→21:30)
[2021-11-10] MEDS: METOPROLOL TARTRATE 25MG TABLET PO SCH ×2 (08:53→21:30)
[2021-11-10] MEDS ORDERED: DEXTROSE 50% WATER 50ML SYRINGE IV PRN (12:45)
[2021-11-10 13:28] LABS: PLATELET ESTIMATE MARKEDLY DECREASED
[2021-11-10] MEDS: INSULIN LISPRO 100 UNITS/ML SUBCUT SCH ×2 (16:44→21:31)
[2021-11-10] MEDS: CEFTRIAXONE 1,000 MG in DEXTROSE 5% WATER 50 ML IV SCH (16:44)
[2021-11-10] MEDS: BLOOD SUGAR DIAGNOSTIC STRIP TEST SCH ×2 (16:44→21:00)
[2021-11-10 19:58] LABS: HEMATOCRIT 35.7 % (36.0-48.0); HEMOGLOBIN 11.7 g/dL (12.0-16.0)
[2021-11-10 20:09] LABS: INR 1.1; PROTHROMBIN TIME 11.4 sec (9.6-11.0)
[2021-11-11] VITALS (9 sets, daily range): BP systolic 133–157; BP diastolic 64–79
[2021-11-11] MEDS: METHYLPREDNISOLONE SOD SUCC 40 MG/ML VIAL IV SCH ×2 (06:02→14:19)
[2021-11-11] MEDS: BLOOD SUGAR DIAGNOSTIC STRIP TEST SCH ×2 (06:02→11:04)
[2021-11-11] MEDS: PANTOPRAZOLE 40MG DR TABLET PO SCH (06:02)
[2021-11-11 06:57] LABS: HEMATOCRIT. 38.3 % (36.0-48.0); HEMOGLOBIN. 12.6 g/dL (12.0-16.0); LYMPHOCYTES % 13.7 % (20.0-50.0); MEAN CORPUSCULAR HEMOGLOBIN 27.7 pg (28.0-32.0); MEAN PLATELET VOLUME 11.7 fl (7.4-10.4); MONOCYTES % 5.3 % (2.0-8.0); PLATELET 63 x1000/uL (130-400); RED BLOOD CELL COUNT 4.56 mill/uL (4.2-5.4); RED CELL DISTRIBUTION WIDTH 18.2 % (11.6-14.6)
[2021-11-11 06:59] LABS: CHLORIDE 108 mEq/L (98-107)
[2021-11-11] MEDS: INSULIN LISPRO 100 UNITS/ML SUBCUT SCH ×2 (07:06→11:39)
[2021-11-11] MEDS: METOPROLOL TARTRATE 25MG TABLET PO SCH (08:15)
[2021-11-11] MEDS: LEVETIRACETAM 500MG TABLET PO SCH (08:15)
[2021-11-11] MEDS ORDERED: P20 PO (13:21)
== END 2021-11-11 15:45 | disposition home or self-care (01) | DRG 813 ==
LOC: ER 10:00 → EDBEDREQTM 15:36 → EDBEDREQSVC 15:36 → EDBEDREQ 15:36 → 3WST 21:16 → EDBEDREQSVC 21:18 → EDBEDREQTM 21:18 → ENRESERV 22:24 → ER 11-08 00:44
PROVIDERS: ADMIT Internal Medicine; ATTEND Internal Medicine
PROC: 30233N1 Transfusion of Nonautologous Red Blood Cells into Peripheral Vein, Percutaneous Approach (ICD-10-PCS; principal; 2021-11-09)
DX: D69.3 Immune thrombocytopenic purpura (principal); I50.33 Acute on chronic diastolic (congestive) heart failure; K63.2 Fistula of intestine; G93.40 Encephalopathy, unspecified; G40.909 Epilepsy, unspecified, not intractable, without status epilepticus; I11.0 Hypertensive heart disease with heart failure; D64.9 Anemia, unspecified; E11.9 Type 2 diabetes mellitus without complications; D69.59 Other secondary thrombocytopenia; F03.90 Unspecified dementia, unspecified severity, without behavioral disturbance, psychotic disturbance, mood disturbance, and anxiety; J44.9 Chronic obstructive pulmonary disease, unspecified; Z88.8 Allergy status to other drugs, medicaments and biological substances; Z91.018 Allergy to other foods; Z79.899 Other long term (current) drug therapy; Z86.73 Personal history of transient ischemic attack (TIA), and cerebral infarction without residual deficits; Z90.81 Acquired absence of spleen; Z90.710 Acquired absence of both cervix and uterus; Z86.711 Personal history of pulmonary embolism; Z86.718 Personal history of other venous thrombosis and embolism; Z79.51 Long term (current) use of inhaled steroids; Z86.2 Personal history of diseases of the blood and blood-forming organs and certain disorders involving the immune mechanism
CPT/HCPCS: 36415; 36430; 74177; 80048; 80053; 80156; 80165; 80185; 81003; 82542; 82962; 85014; 85018; 85025; 85049; 85384; 86850; 86900; 86945; 97162; 99285; A6261; J0696; J1815; J1953; J2920; J7040; J7060; P9034; Q9967; P9035; P9036

== ENCOUNTER → 2022-02-08 | Outpatient (CLI) | payer MEDICARE, MEDICAID ==
[~2022-02-08] MED LIST changes: -LEVO500T89 MT; +P20 PO
== END | disposition home or self-care (01) ==
LOC: NM 08:14
PROVIDERS: ATTEND Internal Medicine
DX: I26.99 Other pulmonary embolism without acute cor pulmonale (principal)
CPT/HCPCS: 71046; 78582; A9540; A9558; C1893

== ENCOUNTER → 2022-02-13 | Outpatient (CLI) | payer MEDICARE, MEDICAID ==
[~2022-02-13] MED LIST changes: +GLIP5TAB12 MT; +PRED10TA MT
== END | disposition home or self-care (01) ==
LOC: LAB 09:14
PROVIDERS: ATTEND Surgery
DX: Z01.812 Encounter for preprocedural laboratory examination (principal); Z20.822 Contact with and (suspected) exposure to COVID-19
CPT/HCPCS: 87426

== ENCOUNTER 2022-02-14 07:59 | Inpatient (IN) | payer MEDICARE, MEDICAID ==
[~2022-02-14] VITALS: Ht 152.4 cm; Wt 82.6 kg
[~2022-02-14 07:59] MED LIST changes: -GLIP5TAB12 MT; +LACTATED RINGERS 1,000 ML IV SCH; -PRED10TA MT
[2022-02-14] MEDS ORDERED: BUPIVACAINE HCL/PF 0.5% (5MG/ML) 30ML ONE (10:52)
[2022-02-14] MEDS ORDERED: POLYMYXIN B SULFATE 500000 UNITS/VIAL ONE (10:52)
[2022-02-14] MEDS ORDERED: FENTANYL CITRATE/PF 50MCG/ML 2ML VIAL ONE (11:12)
[2022-02-14] MEDS ORDERED: NEOSTIGMINE METHYLSULFATE 1MG/ML 10 ML VIAL ONE (11:12)
[2022-02-14] MEDS ORDERED: MIDAZOLAM HCL 2 MG/2 ML VIAL ONE (11:12)
[2022-02-14] MEDS ORDERED: ROCURONIUM BROMIDE 10MG/ML VIAL 5ML IV ONE (11:12)
[2022-02-14] MEDS ORDERED: GLYCOPYRROLATE 0.2 MG/ML 2ML VIAL ONE (11:12)
[2022-02-14] MEDS ORDERED: PROPOFOL 200MG/20ML VIAL IV ONE (11:12)
[2022-02-14] MEDS ORDERED: METRONIDAZOLE 500 MG PREMIX 100 ML IV ONE (11:27)
[2022-02-14] MEDS ORDERED: DEXAMETHASONE 4MG/ML 1ML VIAL ONE (11:51)
[2022-02-14] MEDS ORDERED: ONDANSETRON HCL 4MG/2ML INJ ONE ×2 (11:51→12:37)
[2022-02-14] MEDS ORDERED: GLIP5TAB12 MT (12:13)
[2022-02-14] MEDS ORDERED: PRED10TA MT (12:13)
[2022-02-14] MEDS ORDERED: FENTANYL CITRATE/PF 50MCG/ML 2ML VIAL IV PRN (12:30)
[2022-02-14] MEDS ORDERED: HYDROMORPHONE HCL/PF 2MG/ML CPJ IV PRN (12:30)
[2022-02-14] MEDS ORDERED: MORPHINE SULFATE 4 MG/ML CPJ (NOT FOR IM USE) IV PRN (12:45)
[2022-02-14] MEDS ORDERED: ONDANSETRON HCL 4MG/2ML INJ IV PRN (12:45)
[2022-02-14] MEDS ORDERED: CEFAZOLIN 1000MG PREMIX 50 ML IV SCH (12:45)
[2022-02-14] MEDS ORDERED: ALBUMIN HUMAN 12.5G/250ML (5%) IV ONE (14:22)
[2022-02-14] MEDS ORDERED: ALBUMIN HUMAN 12.5G/250ML (5%) IV NR (14:30)
[2022-02-14] MEDS ORDERED: LEVETIRACETAM 500MG PREMIX 100 ML IV NR (14:30)
[2022-02-14] MEDS ORDERED: NALOXONE HCL 0.4MG/ML VIAL IV PRN (14:45)
[2022-02-14] MEDS ORDERED: IPRATROPIUM/ALBUTEROL 0.5-3(2.5)MG/3ML NEB NEB PRN (15:00)
[2022-02-14] MEDS ORDERED: DEXTROSE 50% WATER 50ML SYRINGE IV PRN (15:00)
[2022-02-14] MEDS ORDERED: LORAZEPAM 2MG/ML CPJ IV PRN (15:00)
[2022-02-14 15:14] LABS: HEMATOCRIT. 36.7 % (36.0-48.0); HEMOGLOBIN. 11.8 g/dL (12.0-16.0); MEAN CORPUSCULAR HEMOGLOBIN 27.2 pg (28.0-32.0); MEAN CORPUSCULAR VOLUME 84.7 fL (81.0-99.0); MEAN PLATELET VOLUME 8.1 fl (7.4-10.4); PLATELET 218 x1000/uL (130-400); RED BLOOD CELL COUNT 4.33 mill/uL (4.2-5.4); RED CELL DISTRIBUTION WIDTH 16.3 % (11.6-14.6)
[2022-02-14 15:17] LABS: BG BASE EXCESS -4.3 mmol/L (-2.0-2.0); BG CARBOXYHEMOGLOBIN 0.3 % (0.5-1.5); BG DEOXYHEMOGLOBIN 2.1 % (0.0-5.0); BG FRACTION INSPIRED OXYGEN 36; BG HCO3 ACT 21.9 mmol/L (22.0-26.0); BG METHEMOGLOBIN 0.5 % (0.0-1.5); BG OXYGEN SATURATION 97.9 % (92.0-98.5); BG OXYHEMOGLOBIN 97.1 % (94.0-97.0); BG PCO2 44.6 mmHg (35.0-45.0); BG PH 7.309 (7.350-7.450); BG PO2 108.8 mmHg (75.0-100.0); BG SAMPLE SITE LEFT RADIAL; BG TOTAL HEMOGLOBIN 12.7 g/dL (12.0-18.0); BG VENT MODE NASAL CANNULA
[2022-02-14] MEDS: METHYLPREDNISOLONE SOD SUCC 40 MG/ML VIAL IV SCH (15:36)
[2022-02-14] MEDS ORDERED: PIPERACILLIN/TAZOBACTAM 3.375G in DEXT 5% WATER 50ML IV NR (15:45)
[2022-02-14 15:50] LABS: CLARITY URINE CLOUDY (CLEAR); COLOR URINE YELLOW (YELLOW); KETONES URINE 2+ (NEGATIVE); LEUKOCYTE ESTERASE URINE NEGATIVE (NEGATIVE); NITRITE URINE NEGATIVE (NEGATIVE); OCCULT BLOOD URINE 2+ (NEGATIVE); PROTEIN URINE TRACE (NEGATIVE); SPECIFIC GRAVITY URINE 1.015 (1.005-1.030); UROBILINOGEN URINE 0.2 E.U./dL (0.2-1.0)
[2022-02-14] MEDS ORDERED: SODIUM BICARBONATE 8.4% 1 MEQ/ML 50ML SYR IV NR ×2 (16:15)
[2022-02-14 16:20] LABS: PLATELET ESTIMATE NORMAL
[2022-02-14 16:38] LABS: CHLORIDE 112 mEq/L (98-107)
[2022-02-14] MEDS: BLOOD SUGAR DIAGNOSTIC STRIP TEST SCH ×2 (17:00→21:58)
[2022-02-14 19:48] VITALS: BP 132/75
[2022-02-14 20:00] VITALS: BP 132/75
[2022-02-14] MEDS ORDERED: LEVETIRACETAM 500 MG in SODIUM CHLORIDE 0.9% 100 ML IV SCH (21:00)
[2022-02-14] MEDS: INSULIN LISPRO 100 UNITS/ML SUBCUT SCH ×2 (21:00→21:57)
[2022-02-14] MEDS: FAMOTIDINE 20MG/2ML VIAL IV SCH (21:16)
[2022-02-14] MEDS: DEXT 5%/0.45% NACL KCL 20MEQ/L 1,000 ML IV SCH (21:56)
[2022-02-14] MEDS: LEVETIRACETAM 500MG PREMIX 100 ML IV SCH (21:56)
[2022-02-14 22:00] VITALS: BP 145/81
[2022-02-14] MEDS: PIPERACILLIN/TAZOBACTAM 3.375 G in DEXTROSE 5% WATER 50 ML IV SCH (22:50)
[2022-02-15] VITALS (12 sets, daily range): BP systolic 124–150; BP diastolic 64–79
[2022-02-15] MEDS: PIPERACILLIN/TAZOBACTAM 3.375 G in DEXTROSE 5% WATER 50 ML IV SCH ×3 (05:10→21:16)
[2022-02-15] MEDS: DEXT 5%/0.45% NACL KCL 20MEQ/L 1,000 ML IV SCH ×2 (05:32→16:28)
[2022-02-15] MEDS: BLOOD SUGAR DIAGNOSTIC STRIP TEST SCH ×4 (06:03→20:50)
[2022-02-15 06:33] LABS: HEMATOCRIT. 35.5 % (36.0-48.0); HEMOGLOBIN. 11.7 g/dL (12.0-16.0); MEAN CORPUSCULAR HEMOGLOBIN 27.6 pg (28.0-32.0); MEAN CORPUSCULAR VOLUME 83.9 fL (81.0-99.0); MEAN PLATELET VOLUME 8.8 fl (7.4-10.4); PLATELET 234 x1000/uL (130-400); RED BLOOD CELL COUNT 4.24 mill/uL (4.2-5.4); RED CELL DISTRIBUTION WIDTH 16.5 % (11.6-14.6)
[2022-02-15 06:49] LABS: CHLORIDE 111 mEq/L (98-107)
[2022-02-15] MEDS: INSULIN LISPRO 100 UNITS/ML SUBCUT SCH ×4 (08:13→21:16)
[2022-02-15] MEDS: FAMOTIDINE 20MG/2ML VIAL IV SCH ×2 (08:14→21:15)
[2022-02-15] MEDS: METHYLPREDNISOLONE SOD SUCC 40 MG/ML VIAL IV SCH (08:14)
[2022-02-15] MEDS: LEVETIRACETAM 500MG PREMIX 100 ML IV SCH ×2 (08:14→21:10)
[2022-02-15] MEDS: AMLODIPINE 5MG TABLET PO SCH (09:00)
[2022-02-15] MEDS: IPRATROPIUM/ALBUTEROL 0.5-3(2.5)MG/3ML NEB NEB SCH ×3 (09:22→20:27)
[2022-02-15 11:42] LABS: PLATELET ESTIMATE NORMAL
[2022-02-15 13:33] LABS: INR 1.1; PROTHROMBIN TIME 12.1 sec (9.6-11.0)
[2022-02-15] MEDS: MORPHINE SULFATE 2 MG/ML CPJ (NOT FOR IM USE) IV PRN (16:29)
[2022-02-15] MEDS: DEXT 5%/0.45% NACL 1000ML 1,000 ML IV SCH (16:41)
[2022-02-16] VITALS (11 sets, daily range): BP systolic 118–157; BP diastolic 57–87
[2022-02-16] MEDS: IPRATROPIUM/ALBUTEROL 0.5-3(2.5)MG/3ML NEB NEB SCH ×4 (02:34→20:54)
[2022-02-16] MEDS: DEXT 5%/0.45% NACL 1000ML 1,000 ML IV SCH ×2 (05:54→20:37)
[2022-02-16] MEDS: BLOOD SUGAR DIAGNOSTIC STRIP TEST SCH ×4 (05:54→20:57)
[2022-02-16] MEDS: PIPERACILLIN/TAZOBACTAM 3.375 G in DEXTROSE 5% WATER 50 ML IV SCH ×3 (05:54→22:01)
[2022-02-16 06:02] LABS: HEMATOCRIT. 32.3 % (36.0-48.0); HEMOGLOBIN. 10.7 g/dL (12.0-16.0); MEAN CORPUSCULAR HEMOGLOBIN 27.5 pg (28.0-32.0); MEAN CORPUSCULAR VOLUME 83.5 fL (81.0-99.0); MEAN PLATELET VOLUME 8.9 fl (7.4-10.4); PLATELET 248 x1000/uL (130-400); RED BLOOD CELL COUNT 3.87 mill/uL (4.2-5.4); RED CELL DISTRIBUTION WIDTH 16.7 % (11.6-14.6)
[2022-02-16 06:12] LABS: CHLORIDE 110 mEq/L (98-107)
[2022-02-16] MEDS: INSULIN LISPRO 100 UNITS/ML SUBCUT SCH ×4 (07:20→20:57)
[2022-02-16] MEDS: LEVETIRACETAM 500MG PREMIX 100 ML IV SCH ×2 (08:51→20:46)
[2022-02-16] MEDS: METHYLPREDNISOLONE SOD SUCC 40 MG/ML VIAL IV SCH (08:51)
[2022-02-16] MEDS: FAMOTIDINE 20MG/2ML VIAL IV SCH ×2 (08:51→20:57)
[2022-02-16] MEDS: AMLODIPINE 5MG TABLET PO SCH (09:00)
[2022-02-16] MEDS ORDERED: FUROSEMIDE 40MG/4ML VIAL IVP NR (09:00)
[2022-02-16 10:10] LABS: PLATELET ESTIMATE NORMAL
[2022-02-16 12:13] LABS: BG CARBOXYHEMOGLOBIN 0.2 % (0.5-1.5); BG DEOXYHEMOGLOBIN 2.5 % (0.0-5.0); BG FRACTION INSPIRED OXYGEN 28; BG HCO3 ACT 31.1 mmol/L (22.0-26.0); BG METHEMOGLOBIN 0.3 % (0.0-1.5); BG OXYGEN SATURATION 97.5 % (92.0-98.5); BG PCO2 46.7 mmHg (35.0-45.0); BG PH 7.441 (7.350-7.450); BG PO2 92.3 mmHg (75.0-100.0); BG SAMPLE SITE RIGHT RADIAL; BG VENT MODE NASAL CANNULA
[2022-02-16] MEDS: MORPHINE SULFATE 2 MG/ML CPJ (NOT FOR IM USE) IV PRN (23:16)
[2022-02-17] VITALS (12 sets, daily range): BP systolic 136–179; BP diastolic 78–103
[2022-02-17] MEDS: IPRATROPIUM/ALBUTEROL 0.5-3(2.5)MG/3ML NEB NEB SCH ×4 (00:49→21:17)
[2022-02-17] MEDS: PIPERACILLIN/TAZOBACTAM 3.375 G in DEXTROSE 5% WATER 50 ML IV SCH ×3 (05:41→22:02)
[2022-02-17] MEDS: BLOOD SUGAR DIAGNOSTIC STRIP TEST SCH ×4 (06:09→20:32)
[2022-02-17] MEDS: INSULIN LISPRO 100 UNITS/ML SUBCUT SCH ×4 (06:25→20:33)
[2022-02-17 06:28] LABS: BASOPHILS % 0.3 % (0.0-2.0); HEMATOCRIT. 34.7 % (36.0-48.0); HEMOGLOBIN. 11.4 g/dL (12.0-16.0); LYMPHOCYTES % 9.4 % (20.0-50.0); MEAN CORPUSCULAR HEMOGLOBIN 27.2 pg (28.0-32.0); MEAN PLATELET VOLUME 9.2 fl (7.4-10.4); MONOCYTES % 8.1 % (2.0-8.0); NEUTROPHILS % 82.2 % (40.0-76.0); PLATELET 278 x1000/uL (130-400); RED BLOOD CELL COUNT 4.17 mill/uL (4.2-5.4); RED CELL DISTRIBUTION WIDTH 16.6 % (11.6-14.6)
[2022-02-17 06:46] LABS: CHLORIDE 104 mEq/L (98-107)
[2022-02-17] MEDS ORDERED: LIDOCAINE HCL 1% 10 MG/ML 10ML VIAL ONE (08:36)
[2022-02-17] MEDS: DEXT 5%/0.45% NACL 1000ML 1,000 ML IV SCH ×2 (08:45→22:02)
[2022-02-17] MEDS: METHYLPREDNISOLONE SOD SUCC 40 MG/ML VIAL IV SCH (09:17)
[2022-02-17] MEDS: FAMOTIDINE 20MG/2ML VIAL IV SCH ×2 (09:17→20:31)
[2022-02-17] MEDS: LEVETIRACETAM 500MG PREMIX 100 ML IV SCH ×2 (09:17→20:32)
[2022-02-17] MEDS: AMLODIPINE 5MG TABLET PO SCH (09:18)
[2022-02-17] MEDS: ONDANSETRON HCL 4MG/2ML INJ IV PRN (09:58)
[2022-02-18] VITALS (15 sets, daily range): BP systolic 119–158; BP diastolic 63–92
[2022-02-18] MEDS: IPRATROPIUM/ALBUTEROL 0.5-3(2.5)MG/3ML NEB NEB SCH ×4 (02:21→20:29)
[2022-02-18] MEDS: PIPERACILLIN/TAZOBACTAM 3.375 G in DEXTROSE 5% WATER 50 ML IV SCH ×3 (05:30→21:32)
[2022-02-18] MEDS: BLOOD SUGAR DIAGNOSTIC STRIP TEST SCH ×4 (06:17→21:23)
[2022-02-18] MEDS: INSULIN LISPRO 100 UNITS/ML SUBCUT SCH ×4 (07:20→21:32)
[2022-02-18] MEDS: FAMOTIDINE 20MG/2ML VIAL IV SCH ×2 (08:30→21:32)
[2022-02-18] MEDS: METHYLPREDNISOLONE SOD SUCC 40 MG/ML VIAL IV SCH (08:32)
[2022-02-18] MEDS: AMLODIPINE 5MG TABLET PO SCH ×2 (08:33→18:06)
[2022-02-18 09:18] LABS: CHLORIDE 104 mEq/L (98-107)
[2022-02-18 09:33] LABS: BASOPHILS % 0.1 % (0.0-2.0); HEMATOCRIT. 36.7 % (36.0-48.0); LYMPHOCYTES % 19.6 % (20.0-50.0); MEAN CORPUSCULAR HEMOGLOBIN 27.3 pg (28.0-32.0); MEAN CORPUSCULAR VOLUME 83.7 fL (81.0-99.0); MEAN PLATELET VOLUME 9.4 fl (7.4-10.4); MONOCYTES % 9.9 % (2.0-8.0); NEUTROPHILS % 70.4 % (40.0-76.0); PLATELET 242 x1000/uL (130-400); RED BLOOD CELL COUNT 4.38 mill/uL (4.2-5.4); RED CELL DISTRIBUTION WIDTH 16.7 % (11.6-14.6)
[2022-02-18] MEDS: LEVETIRACETAM 500MG PREMIX 100 ML IV SCH ×2 (13:53→21:32)
[2022-02-18] MEDS: DEXT 5%/0.45% NACL 1000ML 1,000 ML IV SCH (13:54)
[2022-02-18] MEDS: MORPHINE SULFATE 2 MG/ML CPJ (NOT FOR IM USE) IV PRN (13:57)
[2022-02-18] MEDS: DOCUSATE SODIUM 100MG CAPSULE PO SCH (18:06)
[2022-02-19] VITALS (15 sets, daily range): BP systolic 111–189; BP diastolic 58–102
[2022-02-19] MEDS: IPRATROPIUM/ALBUTEROL 0.5-3(2.5)MG/3ML NEB NEB SCH ×4 (04:44→20:41)
[2022-02-19] MEDS: PIPERACILLIN/TAZOBACTAM 3.375 G in DEXTROSE 5% WATER 50 ML IV SCH ×2 (05:46→14:27)
[2022-02-19] MEDS: DEXT 5%/0.45% NACL 1000ML 1,000 ML IV SCH ×2 (05:46→14:28)
[2022-02-19] MEDS: BLOOD SUGAR DIAGNOSTIC STRIP TEST SCH ×4 (06:50→21:38)
[2022-02-19] MEDS: INSULIN LISPRO 100 UNITS/ML SUBCUT SCH ×4 (07:20→21:39)
[2022-02-19 08:06] LABS: BASOPHILS % 0.2 % (0.0-2.0); EOSINOPHILS % 0.9 % (0.0-5.0); HEMATOCRIT. 35.5 % (36.0-48.0); HEMOGLOBIN. 11.6 g/dL (12.0-16.0); LYMPHOCYTES % 21.2 % (20.0-50.0); MEAN CORPUSCULAR HEMOGLOBIN 27.5 pg (28.0-32.0); MEAN CORPUSCULAR VOLUME 84.2 fL (81.0-99.0); MEAN PLATELET VOLUME 9.2 fl (7.4-10.4); MONOCYTES % 10.8 % (2.0-8.0); NEUTROPHILS % 66.9 % (40.0-76.0); PLATELET 157 x1000/uL (130-400); RED BLOOD CELL COUNT 4.21 mill/uL (4.2-5.4); RED CELL DISTRIBUTION WIDTH 16.3 % (11.6-14.6)
[2022-02-19 08:10] LABS: CHLORIDE 103 mEq/L (98-107)
[2022-02-19] MEDS: FAMOTIDINE 20MG/2ML VIAL IV SCH ×2 (08:52→21:38)
[2022-02-19] MEDS: ONDANSETRON HCL 4MG/2ML INJ IV PRN (08:52)
[2022-02-19] MEDS: AMLODIPINE 5MG TABLET PO SCH ×2 (08:52→17:40)
[2022-02-19] MEDS: METHYLPREDNISOLONE SOD SUCC 40 MG/ML VIAL IV SCH (08:52)
[2022-02-19] MEDS: DOCUSATE SODIUM 100MG CAPSULE PO SCH ×2 (08:53→17:40)
[2022-02-19] MEDS: LEVETIRACETAM 500MG PREMIX 100 ML IV SCH ×2 (08:54→21:38)
[2022-02-19] MEDS: MORPHINE SULFATE 2 MG/ML CPJ (NOT FOR IM USE) IV PRN (10:22)
[2022-02-19] MEDS ORDERED: POTASSIUM CHLORIDE 20MEQ TABLET SR PO NR (18:00)
[2022-02-20] VITALS (11 sets, daily range): BP systolic 105–130; BP diastolic 55–78
[2022-02-20] MEDS: DEXT 5%/0.45% NACL 1000ML 1,000 ML IV SCH ×2 (03:25→17:52)
[2022-02-20] MEDS: INSULIN LISPRO 100 UNITS/ML SUBCUT SCH ×4 (07:04→20:49)
[2022-02-20] MEDS: BLOOD SUGAR DIAGNOSTIC STRIP TEST SCH ×4 (07:04→20:47)
[2022-02-20 07:08] LABS: EOSINOPHILS % 0.5 % (0.0-5.0); HEMOGLOBIN. 10.8 g/dL (12.0-16.0); LYMPHOCYTES % 22.2 % (20.0-50.0); MEAN CORPUSCULAR HEMOGLOBIN 27.4 pg (28.0-32.0); MEAN PLATELET VOLUME 9.1 fl (7.4-10.4); MONOCYTES % 9.5 % (2.0-8.0); NEUTROPHILS % 67.8 % (40.0-76.0); PLATELET 119 x1000/uL (130-400); RED BLOOD CELL COUNT 3.93 mill/uL (4.2-5.4); RED CELL DISTRIBUTION WIDTH 16.1 % (11.6-14.6)
[2022-02-20 07:27] LABS: CHLORIDE 107 mEq/L (98-107)
[2022-02-20] MEDS: IPRATROPIUM/ALBUTEROL 0.5-3(2.5)MG/3ML NEB NEB SCH ×3 (07:50→20:14)
[2022-02-20] MEDS: FAMOTIDINE 20MG/2ML VIAL IV SCH (08:31)
[2022-02-20] MEDS: DOCUSATE SODIUM 100MG CAPSULE PO SCH ×2 (08:31→17:00)
[2022-02-20] MEDS: METHYLPREDNISOLONE SOD SUCC 40 MG/ML VIAL IV SCH (08:31)
[2022-02-20] MEDS: LEVETIRACETAM 500MG PREMIX 100 ML IV SCH ×2 (08:32→20:47)
[2022-02-20] MEDS: AMLODIPINE 5MG TABLET PO SCH ×2 (08:33→17:00)
[2022-02-20 10:21] LABS: CHLORIDE 106 mEq/L (98-107)
[2022-02-20] MEDS: PIPERACILLIN/TAZOBACTAM 3.375 G in DEXTROSE 5% WATER 50 ML IV SCH (20:46)
[2022-02-20] MEDS: FAMOTIDINE 20MG TABLET PO SCH (20:47)
[2022-02-20] MEDS: MORPHINE SULFATE 2 MG/ML CPJ (NOT FOR IM USE) IV PRN (20:48)
[2022-02-21] VITALS (12 sets, daily range): BP systolic 103–154; BP diastolic 59–95
[2022-02-21] MEDS: IPRATROPIUM/ALBUTEROL 0.5-3(2.5)MG/3ML NEB NEB SCH ×4 (02:13→20:33)
[2022-02-21] MEDS: PIPERACILLIN/TAZOBACTAM 3.375 G in DEXTROSE 5% WATER 50 ML IV SCH ×5 (05:06→22:49)
[2022-02-21] MEDS: DEXT 5%/0.45% NACL 1000ML 1,000 ML IV SCH (05:06)
[2022-02-21 06:27] LABS: BASOPHILS % 0.1 % (0.0-2.0); EOSINOPHILS % 0.6 % (0.0-5.0); HEMATOCRIT. 32.7 % (36.0-48.0); HEMOGLOBIN. 10.8 g/dL (12.0-16.0); LYMPHOCYTES % 17.6 % (20.0-50.0); MEAN CORPUSCULAR HEMOGLOBIN 27.3 pg (28.0-32.0); MEAN CORPUSCULAR VOLUME 82.9 fL (81.0-99.0); MEAN PLATELET VOLUME 8.9 fl (7.4-10.4); MONOCYTES % 6.9 % (2.0-8.0); NEUTROPHILS % 74.8 % (40.0-76.0); PLATELET 101 x1000/uL (130-400); RED BLOOD CELL COUNT 3.94 mill/uL (4.2-5.4); RED CELL DISTRIBUTION WIDTH 16.6 % (11.6-14.6)
[2022-02-21 06:58] LABS: CHLORIDE 103 mEq/L (98-107)
[2022-02-21] MEDS: INSULIN LISPRO 100 UNITS/ML SUBCUT SCH ×4 (07:20→22:49)
[2022-02-21] MEDS: BLOOD SUGAR DIAGNOSTIC STRIP TEST SCH ×4 (07:45→21:00)
[2022-02-21] MEDS: DOCUSATE SODIUM 100MG CAPSULE PO SCH ×2 (09:00→17:00)
[2022-02-21] MEDS: AMLODIPINE 5MG TABLET PO SCH (09:39)
[2022-02-21] MEDS: FAMOTIDINE 20MG TABLET PO SCH ×2 (09:39→22:49)
[2022-02-21] MEDS: LEVETIRACETAM 500MG TABLET PO SCH ×2 (09:39→17:58)
[2022-02-21] MEDS: METHYLPREDNISOLONE SOD SUCC 40 MG/ML VIAL IV SCH (09:39)
[2022-02-21] MEDS: DILTIAZEM HCL 30MG TABLET PO SCH ×2 (15:00→22:00)
[2022-02-22] VITALS (7 sets, daily range): BP systolic 97–143; BP diastolic 47–74
[2022-02-22] MEDS: IPRATROPIUM/ALBUTEROL 0.5-3(2.5)MG/3ML NEB NEB SCH ×2 (01:30→08:18)
[2022-02-22] MEDS: PIPERACILLIN/TAZOBACTAM 3.375 G in DEXTROSE 5% WATER 50 ML IV SCH (06:25)
[2022-02-22] MEDS: INSULIN LISPRO 100 UNITS/ML SUBCUT SCH (06:26)
[2022-02-22] MEDS: BLOOD SUGAR DIAGNOSTIC STRIP TEST SCH (06:26)
[2022-02-22] MEDS: DILTIAZEM HCL 30MG TABLET PO SCH (06:26)
[2022-02-22 07:10] LABS: EOSINOPHILS % 0.2 % (0.0-5.0); HEMATOCRIT. 32.8 % (36.0-48.0); HEMOGLOBIN. 10.7 g/dL (12.0-16.0); LYMPHOCYTES % 17.4 % (20.0-50.0); MEAN CORPUSCULAR VOLUME 82.9 fL (81.0-99.0); MEAN PLATELET VOLUME 9.4 fl (7.4-10.4); NEUTROPHILS % 74.4 % (40.0-76.0); PLATELET 99 x1000/uL (130-400); RED BLOOD CELL COUNT 3.96 mill/uL (4.2-5.4); RED CELL DISTRIBUTION WIDTH 16.6 % (11.6-14.6)
[2022-02-22 07:45] LABS: CHLORIDE 104 mEq/L (98-107)
[2022-02-22] MEDS: DOCUSATE SODIUM 100MG CAPSULE PO SCH (08:36)
[2022-02-22] MEDS: FAMOTIDINE 20MG TABLET PO SCH (08:37)
[2022-02-22] MEDS: LEVETIRACETAM 500MG TABLET PO SCH (08:37)
[2022-02-22] MEDS: METHYLPREDNISOLONE SOD SUCC 40 MG/ML VIAL IV SCH (08:37)
== END 2022-02-22 12:00 | DRG 329 ==
LOC: OR 07:59 → 3WST 19:02
PROVIDERS: ADMIT Internal Medicine; ATTEND Surgery
PROC: 0DTN0ZZ Resection of Sigmoid Colon, Open Approach (ICD-10-PCS; principal; 2022-02-14)
PROC: 0DT80ZZ Resection of Small Intestine, Open Approach (ICD-10-PCS; 2022-02-14)
PROC: 0WQF0ZZ Repair Abdominal Wall, Open Approach (ICD-10-PCS; 2022-02-14)
PROC: 0JB80ZZ Excision of Abdomen Subcutaneous Tissue and Fascia, Open Approach (ICD-10-PCS; 2022-02-14)
PROC: 02HV33Z Insertion of Infusion Device into Superior Vena Cava, Percutaneous Approach (ICD-10-PCS; 2022-02-17)
PROC: B548ZZA Ultrasonography of Superior Vena Cava, Guidance (ICD-10-PCS; 2022-02-17)
DX: K63.2 Fistula of intestine (principal); I50.33 Acute on chronic diastolic (congestive) heart failure; D69.3 Immune thrombocytopenic purpura; G93.40 Encephalopathy, unspecified; R65.10 Systemic inflammatory response syndrome (SIRS) of non-infectious origin without acute organ dysfunction; D69.6 Thrombocytopenia, unspecified; E83.42 Hypomagnesemia; E06.9 Thyroiditis, unspecified; D64.9 Anemia, unspecified; E78.5 Hyperlipidemia, unspecified; F03.90 Unspecified dementia, unspecified severity, without behavioral disturbance, psychotic disturbance, mood disturbance, and anxiety; G40.909 Epilepsy, unspecified, not intractable, without status epilepticus; I11.0 Hypertensive heart disease with heart failure; I35.0 Nonrheumatic aortic (valve) stenosis; K66.0 Peritoneal adhesions (postprocedural) (postinfection); E11.319 Type 2 diabetes mellitus with unspecified diabetic retinopathy without macular edema; K43.2 Incisional hernia without obstruction or gangrene; L98.8 Other specified disorders of the skin and subcutaneous tissue; Z86.2 Personal history of diseases of the blood and blood-forming organs and certain disorders involving the immune mechanism; Z86.73 Personal history of transient ischemic attack (TIA), and cerebral infarction without residual deficits; Z86.711 Personal history of pulmonary embolism; Z86.718 Personal history of other venous thrombosis and embolism; Z90.81 Acquired absence of spleen; Z79.51 Long term (current) use of inhaled steroids; Z79.84 Long term (current) use of oral hypoglycemic drugs; Z79.899 Other long term (current) drug therapy; Z90.710 Acquired absence of both cervix and uterus; H54.8 Legal blindness, as defined in USA
CPT/HCPCS: 36415; 36600; 71045; 76937; 80048; 80053; 81003; 82375; 82542; 82805; 82962; 83735; 84145; 84443; 85025; 86850; 86900; 87426; 88307; 93005; 93970; 94640; 97162; 97166; 97530; 97535; C1725; J1100; J1170; J1815; J1940; J1953; J2060; J2250; J2270; J2405; J2543; J2704; J2710; J2920; J3010; J3490; J7040; J7060; P9041

== ENCOUNTER 2022-08-19 08:22 | Emergency (ER) | payer MEDICARE, MEDICAID ==
[~2022-08-19] VITALS: Ht 152.4 cm; Wt 85.0 kg
[~2022-08-19 08:22] MED LIST changes: +GLIP5TAB12 MT; -LACTATED RINGERS 1,000 ML IV SCH; +MONT-39 PO; -MONT10TA32 PO; -OMEP20TA2 PO; +OMEP20TA23 PO; +PRED10TA MT
[2022-08-19] MEDS ORDERED: MORPHINE SULFATE 10 MG/ML CPJ IM ONE (08:45)
[2022-08-19] MEDS ORDERED: MORPHINE SULFATE 10 MG/ML CPJ IM NR (10:00)
[2022-08-19 10:04] LABS: HEMATOCRIT. 39.8 % (36.0-48.0); HEMOGLOBIN. 12.8 g/dL (12.0-16.0); MEAN CORPUSCULAR HEMOGLOBIN 26.8 pg (28.0-32.0); MEAN CORPUSCULAR VOLUME 83.6 fL (81.0-99.0); PLATELET 177 x1000/uL (130-400); RED BLOOD CELL COUNT 4.76 mill/uL (4.2-5.4); RED CELL DISTRIBUTION WIDTH 20.8 % (11.6-14.6)
[2022-08-19 10:17] VITALS: BP 147/76
[2022-08-19 10:17] LABS: CHLORIDE 106 mEq/L (98-107)
[2022-08-19 10:32] LABS: NUCLEATED RED BLOOD CELLS 2 /100 WBC
[2022-08-19 10:33] LABS: PLATELET ESTIMATE NORMAL
[2022-08-19] MEDS ORDERED: T3 PO (11:59)
== END 2022-08-19 12:00 | disposition home or self-care (01) ==
LOC: ER 08:26
DX: S30.0XXA Contusion of lower back and pelvis, initial encounter (principal); J44.9 Chronic obstructive pulmonary disease, unspecified; F03.90 Unspecified dementia, unspecified severity, without behavioral disturbance, psychotic disturbance, mood disturbance, and anxiety; I10 Essential (primary) hypertension; G40.909 Epilepsy, unspecified, not intractable, without status epilepticus; Z86.73 Personal history of transient ischemic attack (TIA), and cerebral infarction without residual deficits; Z90.81 Acquired absence of spleen; Z86.718 Personal history of other venous thrombosis and embolism; Z79.01 Long term (current) use of anticoagulants; Z87.311 Personal history of (healed) other pathological fracture; Z90.710 Acquired absence of both cervix and uterus; W01.0XXA Fall on same level from slipping, tripping and stumbling without subsequent striking against object, initial encounter; Y93.89 Activity, other specified; Y92.018 Other place in single-family (private) house as the place of occurrence of the external cause
CPT/HCPCS: 36415; 72131; 80053; 85025; 96372; 99284; J2270

== ENCOUNTER 2022-08-30 08:21 | Inpatient (IN) | payer MEDICARE, MEDICAID ==
[~2022-08-30] VITALS: Ht 152.4 cm; Wt 85.7 kg
[~2022-08-30 08:21] MED LIST changes: +T3 PO
[2022-08-30] MEDS ORDERED: KETOROLAC 30MG/ML VIAL IV ONE (08:45)
[2022-08-30 09:14] LABS: BASOPHILS % 0.1 % (0.0-2.0); EOSINOPHILS % 0.4 % (0.0-5.0); HEMATOCRIT. 40.1 % (36.0-48.0); HEMOGLOBIN. 12.9 g/dL (12.0-16.0); LYMPHOCYTES % 26.2 % (20.0-50.0); MEAN CORPUSCULAR HEMOGLOBIN 27.2 pg (28.0-32.0); MEAN CORPUSCULAR VOLUME 84.7 fL (81.0-99.0); MEAN PLATELET VOLUME 8.4 fl (7.4-10.4); MONOCYTES % 9.3 % (2.0-8.0); PLATELET 219 x1000/uL (130-400); RED BLOOD CELL COUNT 4.74 mill/uL (4.2-5.4); RED CELL DISTRIBUTION WIDTH 19.5 % (11.6-14.6)
[2022-08-30 09:30] LABS: CHLORIDE 106 mEq/L (98-107)
[2022-08-30] MEDS ORDERED: POTASSIUM CHLORIDE 20MEQ TABLET SR PO NR (13:45)
[2022-08-30] MEDS: FUROSEMIDE 40MG/4ML VIAL IVP SCH (15:02)
[2022-08-30] MEDS ORDERED: ONDANSETRON HCL 4MG/2ML INJ IV PRN (17:15)
[2022-08-30] MEDS ORDERED: ACETAMINOPHEN 325MG TABLET PO PRN (17:15)
[2022-08-30] MEDS ORDERED: MORPHINE SULFATE 2 MG/ML CPJ (NOT FOR IM USE) IV PRN (17:30)
[2022-08-30] MEDS ORDERED: NALOXONE HCL 0.4MG/ML VIAL IV PRN (17:30)
[2022-08-30] MEDS ORDERED: LEVOFLOXACIN 500MG PREMIX 100 ML IV SCH (18:00)
[2022-08-30 20:24] VITALS: BP 151/91
[2022-08-30 20:50] VITALS: BP 164/85
[2022-08-30] MEDS: LEVOFLOXACIN 500MG PREMIX 100 ML IV SCH (22:17)
[2022-08-30] MEDS: LEVETIRACETAM 500MG TABLET PO SCH (22:17)
[2022-08-30] MEDS: ENOXAPARIN 80MG/0.8ML SYR SUBCUT SCH (22:18)
[2022-08-31 00:47] VITALS: BP 174/100
[2022-08-31] MEDS ORDERED: INFLUENZA VACCINE 05/PF 0.5 ML SYRINGE IM ONE (03:30)
[2022-08-31 04:00] VITALS: BP 178/93
[2022-08-31 06:22] LABS: HEMATOCRIT. 37.8 % (36.0-48.0); HEMOGLOBIN. 12.1 g/dL (12.0-16.0); MEAN CORPUSCULAR HEMOGLOBIN 27.3 pg (28.0-32.0); MEAN CORPUSCULAR VOLUME 84.8 fL (81.0-99.0); MEAN PLATELET VOLUME 8.8 fl (7.4-10.4); PLATELET 210 x1000/uL (130-400); RED BLOOD CELL COUNT 4.45 mill/uL (4.2-5.4); RED CELL DISTRIBUTION WIDTH 19.2 % (11.6-14.6)
[2022-08-31 06:24] LABS: CHLORIDE 103 mEq/L (98-107)
[2022-08-31 08:00] VITALS: BP 132/71
[2022-08-31] MEDS ORDERED: ENOXAPARIN 40MG/0.4ML SYR SUBCUT SCH (09:00)
[2022-08-31] MEDS: LEVETIRACETAM 500MG TABLET PO SCH ×2 (09:14→22:04)
[2022-08-31] MEDS: LOSARTAN POTASSIUM 50 MG TABLET PO SCH (09:15)
[2022-08-31] MEDS: ATORVASTATIN CALCIUM 10MG TABLET PO SCH (09:15)
[2022-08-31] MEDS: MEMANTINE HCL 10MG TABLET PO SCH (09:15)
[2022-08-31] MEDS: ENOXAPARIN 80MG/0.8ML SYR SUBCUT SCH ×2 (09:15→22:03)
[2022-08-31] MEDS: FUROSEMIDE 40MG/4ML VIAL IVP SCH (09:18)
[2022-08-31] MEDS: AMLODIPINE 5MG TABLET PO SCH ×2 (09:21→22:04)
[2022-08-31] MEDS: POTASSIUM CHLORIDE 20MEQ TABLET SR PO SCH (09:22)
[2022-08-31 11:12] LABS: NUCLEATED RED BLOOD CELLS 10 /100 WBC
[2022-08-31 11:13] LABS: PLATELET ESTIMATE NORMAL
[2022-08-31 12:00] VITALS: BP 107/51
[2022-08-31] MEDS ORDERED: IOHEXOL-350 100 ML BOTTLE ONE (12:37)
[2022-08-31] MEDS: TOPIRAMATE 25MG TABLET PO SCH ×2 (12:53→17:46)
[2022-08-31 16:00] VITALS: BP 133/72
[2022-08-31 17:46] LABS: INR 1.1; PROTHROMBIN TIME 11.4 sec (9.6-11.0)
[2022-08-31 20:00] VITALS: BP 105/51
[2022-08-31] MEDS ORDERED: METOPROLOL TARTRATE 25MG TABLET PO SCH ×2 (21:00)
[2022-08-31] MEDS: LEVOFLOXACIN 500MG PREMIX 100 ML IV SCH (21:51)
[2022-09-01] VITALS: BP 98/57
[2022-09-01 04:00] VITALS: BP 105/57
[2022-09-01 07:18] LABS: HEMATOCRIT. 37.9 % (36.0-48.0); HEMOGLOBIN. 12.5 g/dL (12.0-16.0); MEAN CORPUSCULAR HEMOGLOBIN 28.1 pg (28.0-32.0); MEAN CORPUSCULAR VOLUME 85.1 fL (81.0-99.0); MEAN PLATELET VOLUME 8.9 fl (7.4-10.4); PLATELET 202 x1000/uL (130-400); RED BLOOD CELL COUNT 4.45 mill/uL (4.2-5.4); RED CELL DISTRIBUTION WIDTH 19.1 % (11.6-14.6)
[2022-09-01 08:00] VITALS: BP 130/76
[2022-09-01] MEDS: TOPIRAMATE 25MG TABLET PO SCH ×2 (09:20→18:33)
[2022-09-01] MEDS: POTASSIUM CHLORIDE 20MEQ TABLET SR PO SCH (09:20)
[2022-09-01] MEDS: ATORVASTATIN CALCIUM 10MG TABLET PO SCH (09:20)
[2022-09-01] MEDS: LEVETIRACETAM 500MG TABLET PO SCH ×2 (09:20→22:52)
[2022-09-01] MEDS: MEMANTINE HCL 10MG TABLET PO SCH (09:20)
[2022-09-01] MEDS: LOSARTAN POTASSIUM 50 MG TABLET PO SCH (09:20)
[2022-09-01] MEDS: AMLODIPINE 5MG TABLET PO SCH ×2 (09:23→22:52)
[2022-09-01] MEDS: ENOXAPARIN 80MG/0.8ML SYR SUBCUT SCH ×2 (09:24→22:51)
[2022-09-01] MEDS: FUROSEMIDE 40MG/4ML VIAL IVP SCH (09:25)
[2022-09-01 09:34] LABS: CHLORIDE 102 mEq/L (98-107)
[2022-09-01 11:34] LABS: NUCLEATED RED BLOOD CELLS 8 /100 WBC; PLATELET ESTIMATE NORMAL
[2022-09-01 12:00] VITALS: BP 128/71
[2022-09-01] MEDS ORDERED: MAGNESIUM 2 G PREMIX 50 ML IV NR (12:00)
[2022-09-01 16:00] VITALS: BP 145/89
[2022-09-01 20:00] VITALS: BP 113/62
[2022-09-01] MEDS: METOPROLOL TARTRATE 25MG TABLET PO SCH (22:51)
[2022-09-01] MEDS: LEVOFLOXACIN 500MG PREMIX 100 ML IV SCH (22:56)
[2022-09-02] VITALS: BP 130/70
[2022-09-02 04:00] VITALS: BP 115/60
[2022-09-02 08:29] LABS: HEMOGLOBIN. 12.6 g/dL (12.0-16.0); MEAN CORPUSCULAR HEMOGLOBIN 26.6 pg (28.0-32.0); MEAN CORPUSCULAR VOLUME 84.2 fL (81.0-99.0); MEAN PLATELET VOLUME 8.9 fl (7.4-10.4); PLATELET 215 x1000/uL (130-400); RED BLOOD CELL COUNT 4.75 mill/uL (4.2-5.4); RED CELL DISTRIBUTION WIDTH 19.4 % (11.6-14.6)
[2022-09-02 08:51] LABS: CHLORIDE 102 mEq/L (98-107)
[2022-09-02] MEDS: FUROSEMIDE 40MG/4ML VIAL IVP SCH (10:55)
[2022-09-02] MEDS: LEVETIRACETAM 500MG TABLET PO SCH ×2 (10:55→20:54)
[2022-09-02] MEDS: METOPROLOL TARTRATE 25MG TABLET PO SCH ×2 (11:03→20:55)
[2022-09-02] MEDS: TOPIRAMATE 25MG TABLET PO SCH ×2 (11:04→19:12)
[2022-09-02] MEDS: LOSARTAN POTASSIUM 50 MG TABLET PO SCH (11:05)
[2022-09-02] MEDS: ATORVASTATIN CALCIUM 10MG TABLET PO SCH (11:37)
[2022-09-02] MEDS: ENOXAPARIN 80MG/0.8ML SYR SUBCUT SCH ×2 (11:37→20:55)
[2022-09-02] MEDS: POTASSIUM CHLORIDE 20MEQ TABLET SR PO SCH (11:38)
[2022-09-02] MEDS: MEMANTINE HCL 10MG TABLET PO SCH (11:39)
[2022-09-02 12:00] VITALS: BP 116/67
[2022-09-02 14:02] LABS: NUCLEATED RED BLOOD CELLS 5 /100 WBC
[2022-09-02 14:09] LABS: PLATELET ESTIMATE NORMAL
[2022-09-02 16:00] VITALS: BP 93/59
[2022-09-02 20:00] VITALS: BP 105/59
[2022-09-02] MEDS: LEVOFLOXACIN 500MG TABLET PO SCH (20:59)
[2022-09-03] VITALS: BP 98/53
[2022-09-03 04:00] VITALS: BP 105/71
[2022-09-03] MEDS: ATORVASTATIN CALCIUM 10MG TABLET PO SCH (10:30)
[2022-09-03] MEDS: FUROSEMIDE 40MG/4ML VIAL IVP SCH (10:30)
[2022-09-03] MEDS: ENOXAPARIN 80MG/0.8ML SYR SUBCUT SCH ×2 (10:37→21:00)
[2022-09-03] MEDS: METOPROLOL TARTRATE 25MG TABLET PO SCH ×2 (10:37→21:00)
[2022-09-03] MEDS: LEVETIRACETAM 500MG TABLET PO SCH ×2 (10:38→21:00)
[2022-09-03] MEDS: TOPIRAMATE 25MG TABLET PO SCH ×2 (10:38→19:01)
[2022-09-03] MEDS: LOSARTAN POTASSIUM 50 MG TABLET PO SCH (10:38)
[2022-09-03] MEDS: POTASSIUM CHLORIDE 20MEQ TABLET SR PO SCH (10:38)
[2022-09-03] MEDS: MEMANTINE HCL 10MG TABLET PO SCH (10:39)
[2022-09-03] MEDS: AMLODIPINE 5MG TABLET PO SCH (10:39)
[2022-09-03 12:00] VITALS: BP 120/69
[2022-09-03 16:00] VITALS: BP 91/65
[2022-09-03 20:00] VITALS: BP 96/57
[2022-09-03] MEDS: LEVOFLOXACIN 500MG TABLET PO SCH (21:00)
[2022-09-04] VITALS: BP 98/58
[2022-09-04 04:00] VITALS: BP 106/62
[2022-09-04 08:00] VITALS: BP 21/112
[2022-09-04 10:21] VITALS: BP 112/77
[2022-09-04] MEDS: FUROSEMIDE 40MG/4ML VIAL IVP SCH (11:35)
[2022-09-04] MEDS: METOPROLOL TARTRATE 25MG TABLET PO SCH (11:36)
[2022-09-04] MEDS: LEVETIRACETAM 500MG TABLET PO SCH (11:37)
[2022-09-04] MEDS: LOSARTAN POTASSIUM 50 MG TABLET PO SCH (11:37)
[2022-09-04] MEDS: ENOXAPARIN 80MG/0.8ML SYR SUBCUT SCH (11:37)
[2022-09-04] MEDS: AMLODIPINE 5MG TABLET PO SCH (11:38)
[2022-09-04 11:49] LABS: HEMATOCRIT. 40.5 % (36.0-48.0); HEMOGLOBIN. 12.9 g/dL (12.0-16.0); MEAN CORPUSCULAR HEMOGLOBIN 26.9 pg (28.0-32.0); MEAN CORPUSCULAR VOLUME 84.1 fL (81.0-99.0); MEAN PLATELET VOLUME 7.9 fl (7.4-10.4); PLATELET 143 x1000/uL (130-400); RED BLOOD CELL COUNT 4.82 mill/uL (4.2-5.4); RED CELL DISTRIBUTION WIDTH 18.6 % (11.6-14.6)
[2022-09-04 12:00] VITALS: BP 103/52
[2022-09-04 13:02] LABS: PLATELET ESTIMATE NORMAL
[2022-09-05] MEDS ORDERED: RIVAROXABAN 15 MG TABLET PO SCH (18:10)
== END 2022-09-04 14:20 | DRG 175 ==
LOC: ER 08:21 → 7WST 12:15 → EDBEDREQ 12:24 → EDBEDREQTM 12:24 → ENRESERV 15:29
PROVIDERS: ADMIT Internal Medicine; ATTEND Internal Medicine
DX: I26.94 Multiple subsegmental thrombotic pulmonary emboli without acute cor pulmonale (principal); I50.31 Acute diastolic (congestive) heart failure; D69.3 Immune thrombocytopenic purpura; I82.433 Acute embolism and thrombosis of popliteal vein, bilateral; I48.0 Paroxysmal atrial fibrillation; I11.0 Hypertensive heart disease with heart failure; M54.9 Dorsalgia, unspecified; E66.01 Morbid (severe) obesity due to excess calories; G40.909 Epilepsy, unspecified, not intractable, without status epilepticus; H54.8 Legal blindness, as defined in USA; J44.9 Chronic obstructive pulmonary disease, unspecified; F03.90 Unspecified dementia, unspecified severity, without behavioral disturbance, psychotic disturbance, mood disturbance, and anxiety; E11.9 Type 2 diabetes mellitus without complications; R01.1 Cardiac murmur, unspecified; I08.0 Rheumatic disorders of both mitral and aortic valves; I27.20 Pulmonary hypertension, unspecified; Z86.73 Personal history of transient ischemic attack (TIA), and cerebral infarction without residual deficits; Z68.38 Body mass index [BMI] 38.0-38.9, adult; Z90.710 Acquired absence of both cervix and uterus; Z90.81 Acquired absence of spleen; Z87.440 Personal history of urinary (tract) infections; Z91.81 History of falling
CPT/HCPCS: 36415; 71045; 71275; 80048; 80053; 80061; 82962; 83735; 83880; 84484; 85025; 90686; 93005; 93306; 93970; 99285; A6261; C1893; J1650; J1885; J1940; J1956; J3475; Q9967

== ENCOUNTER 2022-09-30 00:47 | Inpatient (IN) | payer MEDICARE, MEDICAID ==
[~2022-09-30] VITALS: Ht 152.4 cm; Wt 80.7 kg
[~2022-09-30 00:47] MED LIST changes: -BUDE6.9H INH; -GLIP5TAB12 MT; -HYDR-3512 PO; -LEVE500T98 PO; -LORA10TA7 PO; -MONT-39 PO; -OMEP20TA23 PO; -PRED10TA MT; -UMEC62.5 INH; -VALS80TA2 PO
[2022-09-30 02:36] LABS: BASOPHILS % 0.4 % (0.0-2.0); EOSINOPHILS % 2.4 % (0.0-5.0); HEMATOCRIT. 37.2 % (36.0-48.0); LYMPHOCYTES % 46.2 % (20.0-50.0); MEAN CORPUSCULAR HEMOGLOBIN 26.8 pg (28.0-32.0); MEAN CORPUSCULAR VOLUME 82.8 fL (81.0-99.0); MEAN PLATELET VOLUME 8.6 fl (7.4-10.4); MONOCYTES % 10.7 % (2.0-8.0); NEUTROPHILS % 40.3 % (40.0-76.0); PLATELET 114 x1000/uL (130-400); RED BLOOD CELL COUNT 4.49 mill/uL (4.2-5.4); RED CELL DISTRIBUTION WIDTH 16.4 % (11.6-14.6)
[2022-09-30 02:39] LABS: CHLORIDE 101 mEq/L (98-107)
[2022-09-30] MEDS ORDERED: PIPERACILLIN/TAZOBACTAM 3.375GM/50ML PREMIX IV ONE (04:00)
[2022-09-30] MEDS ORDERED: ASPIRIN 325MG EC TABLET PO ONE (04:15)
[2022-09-30] MEDS ORDERED: PIPERACILLIN/TAZ 3.375G PREMIX 50 ML IV NR (04:15)
[2022-09-30 09:07] VITALS: BP 125/75
[2022-09-30 10:15] VITALS: BP 125/75
[2022-09-30 10:24] VITALS: BP 125/75
[2022-09-30] MEDS ORDERED: LEVE10006 MT (11:26)
[2022-09-30] MEDS ORDERED: LEVE500T19 MT (11:29)
[2022-09-30 12:00] VITALS: BP 136/61
[2022-09-30] MEDS ORDERED: ACETAMINOPHEN 325MG TABLET PO PRN (15:30)
[2022-09-30] MEDS ORDERED: ONDANSETRON HCL 4MG/2ML INJ IV PRN (15:30)
[2022-09-30 16:00] VITALS: BP 134/61
[2022-09-30] MEDS: SODIUM CHLORIDE 0.9% 1,000 ML IV SCH (16:00)
[2022-09-30] MEDS: APIXABAN 5 MG TABLET PO SCH (17:38)
[2022-09-30] MEDS: LEVETIRACETAM 500MG TABLET PO SCH (17:38)
[2022-09-30] MEDS: TOPIRAMATE 25MG TABLET PO SCH (17:38)
[2022-09-30] MEDS: METRONIDAZOLE 500 MG PREMIX 100 ML IV SCH ×2 (17:39→22:21)
[2022-09-30] MEDS: LEVOFLOXACIN 500MG PREMIX 100 ML IV SCH (17:39)
[2022-09-30] MEDS: BLOOD SUGAR DIAGNOSTIC STRIP TEST SCH (17:40)
[2022-09-30] MEDS: METOPROLOL TARTRATE 25MG TABLET PO SCH (17:40)
[2022-09-30] MEDS ORDERED: DEXTROSE 50% WATER 50ML SYRINGE IV PRN (17:45)
[2022-09-30] MEDS: INSULIN LISPRO 100 UNITS/ML SUBCUT SCH ×2 (17:50→22:20)
[2022-09-30 20:00] VITALS: BP 109/53
[2022-10-01] VITALS: BP 110/71
[2022-10-01 04:00] VITALS: BP 124/61
[2022-10-01] MEDS: SODIUM CHLORIDE 0.9% 1,000 ML IV SCH ×2 (05:09→17:37)
[2022-10-01] MEDS: APIXABAN 5 MG TABLET PO SCH ×2 (05:33→17:36)
[2022-10-01] MEDS: METRONIDAZOLE 500 MG PREMIX 100 ML IV SCH ×3 (05:33→22:45)
[2022-10-01] MEDS: LEVETIRACETAM 500MG TABLET PO SCH ×2 (05:33→17:36)
[2022-10-01] MEDS: BLOOD SUGAR DIAGNOSTIC STRIP TEST SCH ×3 (06:43→16:55)
[2022-10-01] MEDS: INSULIN LISPRO 100 UNITS/ML SUBCUT SCH ×3 (07:16→16:55)
[2022-10-01 07:53] LABS: BASOPHILS % 0.3 % (0.0-2.0); EOSINOPHILS % 2.1 % (0.0-5.0); HEMATOCRIT. 37.4 % (36.0-48.0); LYMPHOCYTES % 49.3 % (20.0-50.0); MEAN CORPUSCULAR HEMOGLOBIN 26.9 pg (28.0-32.0); MEAN CORPUSCULAR VOLUME 84.1 fL (81.0-99.0); MEAN PLATELET VOLUME 8.6 fl (7.4-10.4); NEUTROPHILS % 38.3 % (40.0-76.0); PLATELET 114 x1000/uL (130-400); RED BLOOD CELL COUNT 4.45 mill/uL (4.2-5.4); RED CELL DISTRIBUTION WIDTH 16.4 % (11.6-14.6)
[2022-10-01 08:00] VITALS: BP 131/67
[2022-10-01 08:31] LABS: CHLORIDE 103 mEq/L (98-107)
[2022-10-01] MEDS: TOPIRAMATE 25MG TABLET PO SCH ×2 (08:48→17:36)
[2022-10-01] MEDS: PANTOPRAZOLE SODIUM 40 MG/VIAL IV SCH (08:48)
[2022-10-01] MEDS: MEMANTINE HCL 10MG TABLET PO SCH (08:48)
[2022-10-01] MEDS: LOSARTAN POTASSIUM 50 MG TABLET PO SCH (08:48)
[2022-10-01] MEDS: ATORVASTATIN CALCIUM 10MG TABLET PO SCH (08:48)
[2022-10-01] MEDS: METOPROLOL TARTRATE 25MG TABLET PO SCH ×2 (08:49→17:00)
[2022-10-01 12:00] VITALS: BP 103/50
[2022-10-01 16:00] VITALS: BP 95/51
[2022-10-01] MEDS: LEVOFLOXACIN 500MG PREMIX 100 ML IV SCH (17:38)
[2022-10-01 20:00] VITALS: BP 114/51
[2022-10-02 01:26] VITALS: BP 139/72
[2022-10-02] MEDS: LEVETIRACETAM 500MG TABLET PO SCH ×2 (06:56→18:53)
[2022-10-02] MEDS: APIXABAN 5 MG TABLET PO SCH ×2 (06:57→18:53)
[2022-10-02] MEDS: INSULIN LISPRO 100 UNITS/ML SUBCUT SCH ×4 (07:50→20:27)
[2022-10-02 08:00] VITALS: BP 110/71
[2022-10-02] MEDS: SODIUM CHLORIDE 0.9% 1,000 ML IV SCH ×2 (08:00→20:28)
[2022-10-02] MEDS: PANTOPRAZOLE SODIUM 40 MG/VIAL IV SCH (09:00)
[2022-10-02] MEDS: MEMANTINE HCL 10MG TABLET PO SCH (10:56)
[2022-10-02] MEDS: LOSARTAN POTASSIUM 50 MG TABLET PO SCH (10:56)
[2022-10-02] MEDS: TOPIRAMATE 25MG TABLET PO SCH ×2 (10:56→17:01)
[2022-10-02] MEDS: ATORVASTATIN CALCIUM 10MG TABLET PO SCH (10:57)
[2022-10-02] MEDS: METOPROLOL TARTRATE 25MG TABLET PO SCH ×2 (10:57→17:01)
[2022-10-02 12:00] VITALS: BP 117/63
[2022-10-02] MEDS: BLOOD SUGAR DIAGNOSTIC STRIP TEST SCH ×3 (13:18→20:22)
[2022-10-02] MEDS: METRONIDAZOLE 500 MG PREMIX 100 ML IV SCH ×2 (14:04→20:20)
[2022-10-02 16:00] VITALS: BP 105/57
[2022-10-02] MEDS: LEVOFLOXACIN 500MG PREMIX 100 ML IV SCH (16:32)
[2022-10-02 18:01] LABS: CLARITY URINE CLEAR (CLEAR); COLOR URINE YELLOW (YELLOW); KETONES URINE NEGATIVE (NEGATIVE); LEUKOCYTE ESTERASE URINE TRACE (NEGATIVE); NITRITE URINE NEGATIVE (NEGATIVE); OCCULT BLOOD URINE NEGATIVE (NEGATIVE); PH URINE 6.5 (4.5-8.0); PROTEIN URINE NEGATIVE (NEGATIVE); SPECIFIC GRAVITY URINE 1.007 (1.005-1.030); UROBILINOGEN URINE 0.2 E.U./dL (0.2-1.0)
[2022-10-02 20:00] VITALS: BP 108/61
[2022-10-03] VITALS: BP 110/56
[2022-10-03 04:00] VITALS: BP 144/72
[2022-10-03] MEDS: APIXABAN 5 MG TABLET PO SCH (05:39)
[2022-10-03] MEDS: METRONIDAZOLE 500 MG PREMIX 100 ML IV SCH ×2 (05:39→13:01)
[2022-10-03] MEDS: BLOOD SUGAR DIAGNOSTIC STRIP TEST SCH ×3 (05:40→17:11)
[2022-10-03] MEDS: LEVETIRACETAM 500MG TABLET PO SCH (05:54)
[2022-10-03] MEDS: INSULIN LISPRO 100 UNITS/ML SUBCUT SCH ×3 (07:50→17:15)
[2022-10-03 08:00] VITALS: BP 146/78
[2022-10-03] MEDS: ATORVASTATIN CALCIUM 10MG TABLET PO SCH (09:03)
[2022-10-03] MEDS: LOSARTAN POTASSIUM 50 MG TABLET PO SCH (09:03)
[2022-10-03] MEDS: TOPIRAMATE 25MG TABLET PO SCH ×2 (09:04→17:10)
[2022-10-03] MEDS: MEMANTINE HCL 10MG TABLET PO SCH (09:04)
[2022-10-03] MEDS: METOPROLOL TARTRATE 25MG TABLET PO SCH ×2 (09:04→17:10)
[2022-10-03] MEDS ORDERED: APIX5TAB PO (11:30)
[2022-10-03 12:00] VITALS: BP 104/49
[2022-10-03] MEDS: SODIUM CHLORIDE 0.9% 1,000 ML IV SCH (12:35)
[2022-10-03] MEDS: PANTOPRAZOLE SODIUM 40 MG/VIAL IV SCH (12:49)
[2022-10-03 16:00] VITALS: BP 105/50
[2022-10-03] MEDS: LEVOFLOXACIN 500MG PREMIX 100 ML IV SCH (17:08)
[2022-10-04] MEDS ORDERED: FAMOTIDINE 20MG/2ML VIAL IV SCH (09:00)
== END 2022-10-03 19:28 | DRG 392 ==
LOC: ER 00:47 → 6EST 04:46 → EDBEDREQ 04:47 → ENRESERV 08:14
PROVIDERS: ADMIT Internal Medicine; ATTEND Internal Medicine
DX: K57.32 Diverticulitis of large intestine without perforation or abscess without bleeding (principal); I50.30 Unspecified diastolic (congestive) heart failure; I48.91 Unspecified atrial fibrillation; G40.909 Epilepsy, unspecified, not intractable, without status epilepticus; E11.9 Type 2 diabetes mellitus without complications; H54.8 Legal blindness, as defined in USA; Z20.822 Contact with and (suspected) exposure to COVID-19; Z86.718 Personal history of other venous thrombosis and embolism; Z86.2 Personal history of diseases of the blood and blood-forming organs and certain disorders involving the immune mechanism; Z86.711 Personal history of pulmonary embolism; Z90.81 Acquired absence of spleen; Z90.710 Acquired absence of both cervix and uterus
CPT/HCPCS: 36415; 71045; 74176; 80048; 80053; 81003; 82962; 84484; 85025; 87426; 87804; 93005; 93970; 99285; A6261; C1893; C9113; C9803; J1815; J1956; J2543; J3490; J7030